=== PATIENT | female | born 1985 | race Caucasian/White ===

== ENCOUNTER → 2016-07-30 | Outpatient (CLI) | payer BC | END | disposition home or self-care (01) | LOC: LABWHC1 10:20 | PROVIDERS: ATTEND Obstetrics & Gynecology | DX: Z34.02 Encounter for supervision of normal first pregnancy, second trimester (principal); Z3A.00 Weeks of gestation of pregnancy not specified | CPT/HCPCS: 36415; 82105; 82677; 84702; 86336 ==

== ENCOUNTER → 2016-10-08 | Outpatient (CLI) | payer BC ==
[2016-10-08 09:03] LABS: CH 34.2; CHCM 33.2; HCT 32.7 % (34.0-46.0); HDW 2.68; HGB 10.9 gm/dL (11.4-16.0); MCH 34.7 pg (25.0-35.0); MCHC 33.4 g/dL (31.0-37.0); MCV 103.7 fL (80.0-100.0); Macrocytosis Slight; Mean Platelet Volume 7.7; RBC 3.15 m/uL (3.80-5.40); RDW 13.1 % (11.5-15.5); WBC 7.2 k/uL (3.8-10.6)
== END | disposition home or self-care (01) ==
LOC: LABWHC1 07:41
PROVIDERS: ATTEND Obstetrics & Gynecology
DX: Z34.02 Encounter for supervision of normal first pregnancy, second trimester (principal); Z3A.00 Weeks of gestation of pregnancy not specified
CPT/HCPCS: 36415; 82950; 85027

== ENCOUNTER → 2016-11-11 | Outpatient (CLI) | payer BC ==
--- NOTE | 2016-11-11 10:32 | US ---
EXAMINATION TYPE: US OB anatomy transabd DATE OF EXAM: 11/11/2016 8:55 AM COMPARISON: NONE HISTORY: Larger for Dates Third Trimester O36.63X0 Anatomy per order TECHNIQUE: Transabdominal (TA) EXAM MEASUREMENTS: GESTATIONAL AGE / DATING Physician Established: (32 weeks/5 days) EDC: 01/01/2017 Dates by Current Scan for: (33 weeks/3 days) EDC: 12/27/2016 SURVEY IUP: Single PLACENTA: Fundal PREVIA: No previa GAGE: 10.8 cm Normal CERVICAL LENGTH (transabdominal: norm > 3.0cm): 4.0 cm BIOMETRY PRESENTATION: Vertex BPD: 8.6 cm 34 weeks / 5 days HC: 30.2 cm 33 weeks / 4 days AC: 28.5 cm 32 weeks / 4 days FL: 6.3 cm 32 weeks / 5 days ESTIMATED WEIGHT IN GRAMS: 2060 grams ESTIMATED WEIGHT IN LBS/OZS: 4 lbs. 9 oz. WEIGHT PERCENTAGE BASED ON ESTABLISHED DATE: 44 % HC/AC: 1.06 Normal FL/AC: 22% Normal HEART RATE: 147 bpm RHYTHM: Normal ANATOMY SEEN (within normal limits): * Lateral Vent (< 1 cm) 0.4 cm Choroid Plexus (bilateral) Midline Falx Cavus Septi Pellucidi Four Chamber Heart Stomach Situs Nose / Lips Diaphragm Kidneys (bilateral) Bladder Three Vessel Cord ANATOMY SEEN (does not appear within normal limits): ANATOMY NOT SEEN: * Cisterna Magna (< 1.1 cm) cm * Nuchal Fold (< 0.6 cm) cm * Cerebellum (varies with age) cm Longitudinal Spine Transverse Spine Arms (bilateral) Legs (bilateral) Cord Insert Outflow tracts: LVOT/RVOT Suboptimal visualization of anatomy due to late gestational age. Live single IUP measuring 33 weeks 3 days. IMPRESSION: 1. Single intrauterine gestation estimated at 33 weeks 3 days gestation based on the current ultrasou nd measurements. This would have a calculated EDC of 12/27/2016. Correlate this with her physician goldie leished EDC of 01/01/2017. 2. Cardiac activity measures 147 bpm. 3. anatomy is limited due to age and position this examination
== END | disposition home or self-care (01) ==
LOC: RADUSWWP 08:17
PROVIDERS: ATTEND Obstetrics & Gynecology
DX: O36.63X0 Maternal care for excessive fetal growth, third trimester, not applicable or unspecified (principal); Z3A.33 33 weeks gestation of pregnancy
CPT/HCPCS: 76811

== ENCOUNTER 2017-01-04 12:03 | Inpatient (IN) | payer BC ==
[2017-01-04] MEDS ORDERED: CARBOPROST TROMETHAMINE 250 MCG/ML 1 ML AMP IM PRN (12:16)
[2017-01-04] MEDS ORDERED: LIDOCAINE 1% (PF) 10 MG/ML (30 ML SDV) SQ PRN (12:16)
[2017-01-04] MEDS ORDERED: METHYLERGONOVINE 0.2 MG/ML 1 ML AMP IM PRN (12:16)
[2017-01-04] MEDS ORDERED: TERBUTALINE 1 MG/ML VIAL SQ PRN (12:16)
[2017-01-04] MEDS ORDERED: OXYTOCIN 10 UNIT/ML 1 ML VIAL IM PRN (12:16)
[2017-01-04 12:33] LABS: Basophils % (A) 0 %; CH 35.1; CHCM 35.8; Eosinophils # (A) 0.1 k/uL (0-0.7); Eosinophils % (A) 1 %; HCT 34.7 % (34.0-46.0); HDW 2.67; HGB 12.3 gm/dL (11.4-16.0); Luc # (Auto) 0.24; Luc % (Auto) 4; Lymphocytes # (A) 1.5 k/uL (1.0-4.8); Lymphocytes % (A) 25 %; MCH 35.1 pg (25.0-35.0); MCHC 35.6 g/dL (31.0-37.0); MCV 98.5 fL (80.0-100.0); Mean Platelet Volume 9.1; Monocytes # (A) 0.3 k/uL (0-1.0); Monocytes % (A) 5 %; Neutrophils # (A) 4.1 k/uL (1.3-7.7); Neutrophils % (A) 65 %; RBC 3.52 m/uL (3.80-5.40); RDW 13.7 % (11.5-15.5); WBC 6.3 k/uL (3.8-10.6); WBC (Perox) 6.42
[2017-01-04 12:46] VITALS: BMI 26.6
[2017-01-04] MEDS: LACTATED RINGERS 1,000 ML IV SCH ×4 (12:48→23:47)
[2017-01-04] MEDS: OXYTOCIN 20 UNITS/1000 ML NS 1,000 ML IV SCH (12:49)
[2017-01-04] MEDS ORDERED: BUTORPHANOL 1 MG/ML 1 ML VIAL IV PRN (16:33)
[2017-01-04] MEDS ORDERED: fentaNYL (PF) 50 MCG/ML 5 ML AMP ONE (20:14)
[2017-01-04] MEDS ORDERED: BUPIVACAINE (PF) 0.25% 30 ML VIAL ONE (20:14)
[2017-01-04] MEDS ORDERED: SODIUM CHLORIDE 0.9% 100 ML BAG ONE (20:14)
[2017-01-04] MEDS ORDERED: BUPIVACAINE (PF) 0.25% 25 ML, fentaNYL (PF) 200 MCG in SODIUM CHLORIDE 0.9% 71 ML EPIDURAL ONE (20:33)
[2017-01-05] MEDS ORDERED: ceFAZolin 2 GM in SODIUM CHLORIDE 0.9% 100 ML IVPB ONE ×2 (05:08→22:00)
[2017-01-05] MEDS ORDERED: CITRIC ACID-SODIUM CITRATE 15 ML CUP PO ONE (05:08)
[2017-01-05] MEDS: LACTATED RINGERS 1,000 ML IV SCH ×4 (05:17→22:46)
[2017-01-05] MEDS ORDERED: ePHEDrine 50 MG/ML 1 ML AMP ONE (05:28)
[2017-01-05] MEDS ORDERED: ONDANSETRON 4 MG/2 ML VIAL ONE (05:28)
[2017-01-05] MEDS ORDERED: MORPHINE SULFATE (PF) 0.3 MG/0.3 ML SYR ONE (05:28)
[2017-01-05] MEDS ORDERED: KETOROLAC 30 MG/ML 1 ML VIAL ONE (05:28)
[2017-01-05] MEDS ORDERED: OXYTOCIN 10 UNIT/ML 1 ML VIAL ONE (05:28)
[2017-01-05] MEDS ORDERED: NALBUPHINE 10 MG/ML AMPUL ONE (05:28)
[2017-01-05] MEDS ORDERED: PHENYLEPHRINE-0.9% NACL SYG 1 MG/10 ML SYRINGE ONE (05:28)
[2017-01-05] MEDS ORDERED: NALOXONE 0.4 MG/ML 1 ML VIAL IV PRN ×2 (05:58→06:27)
[2017-01-05] MEDS ORDERED: MORPHINE SULFATE 4 MG/ML SYRINGE IVP PRN (05:58)
[2017-01-05] MEDS ORDERED: ONDANSETRON 4 MG/2 ML VIAL IVP PRN (05:58)
[2017-01-05] MEDS ORDERED: diphenhydrAMINE 50 MG/ML 1 ML VIAL IVP PRN ×3 (05:58→06:27)
[2017-01-05] MEDS ORDERED: ZOLPIDEM 5 MG TAB PO PRN (06:27)
[2017-01-05] MEDS ORDERED: diphenhydrAMINE 25 MG CAP PO PRN (06:27)
[2017-01-05] MEDS ORDERED: METOCLOPRAMIDE 5 MG/ML 2 ML VIAL IVP PRN (06:27)
[2017-01-05] MEDS ORDERED: ACETAMINOPHEN TAB 325 MG TAB PO PRN (06:27)
[2017-01-05] MEDS ORDERED: Acetaminophen-Codeine 300-30mg TAB PO PRN ×2 (06:27)
[2017-01-05] MEDS ORDERED: SIMETHICONE 80 MG CHEWABLE PO PRN (06:27)
[2017-01-05] MEDS ORDERED: diphenhydrAMINE 50 MG CAP PO PRN (06:27)
--- NOTE | 2017-01-05 06:31 | P.HPOB ---
History of Present Illness H&P Date: 01/04/17 Chief Complaint: Intrauterine at 40 weeks with oligohydramnios Vani is a 29-year-old at 40 weeks gestation arrives to my office today for a an ultrasound for GAGE and estimated weight. Ultrasound revealed her GAGE to be 3 area due to oligohydramnios she was sent to labor and delivery for induction of labor for same. Her course otherwise has been unremarkable. She has had no significant problems or concerns during this and she is feeling well at this time. Risks of induction were discussed patient in detail and all questions were answered for she and her prior to beginning the induction. Patient's pertinent labs do include O + blood type Rh antibody was negative, rubella, hepatitis B surface antigen, RPR were all negative. Group B strep was also negative. On physical exam vital signs are stable and afebrile. Heart regular, lungs clear, extremities without pain. Abdomen soft gravid uterus is noted. heart tones 130s to 150s and have been reactive. Assessment intrauterine at term with oligohydramnios. Plan induction of labor. Pitocin augmentation of labor. Plans epidural for analgesia. Past Medical History Past Medical History: No Reported History History of Any Multi-Drug Resistant Organisms: None Reported Additional Past Surgical History / Comment(s): [place] teeth removal 2003 Past Psychological History: No Psychological Hx Reported Smoking Status: Never smoker Past Alcohol Use History: None Reported Past Drug Use History: None Reported - Past Family History Father Family Medical History: Hypertension Medications and Allergies Home Medications Medication Instructions Recorded Confirmed Type Fluticasone/Salmeterol [Advair 1 puff INHALATION BID 01/04/17 01/04/17 History 250-50 Diskus] Pnv,Calcium 72/Iron/Folic Acid 1 tab PO DAILY 01/04/17 01/04/17 History [ Plus Tablet] Allergies Allergy/AdvReac Type Severity Reaction Status Date / Time No Known Allergies Allergy Verified 01/04/17 12:14 Exam Osteopathic Statement: *. No significant issues noted on an osteopathic structural exam other than those noted in the History and Physical/Consult. - Vital Signs Vital signs: Vital Signs Temp Pulse Resp BP 01/04/17 12:24 96.9 F L 74 16 137/83 Intake and Output 01/04/17 01/04/17 01/05/17 14:59 22:59 06:59 Intake Total 1200 2000 Output Total 200 Balance 1200 1800 Intake: IV 300 Lactated Ringers 1,000 ml 300 @ 125 mls/hr IV .Q8H BIANCA Rx#:[id number] Intake, IV Titration 900 2000 Amount Lactated Ringers 1,000 ml 900 2000 @ 125 mls/hr IV .Q8H BIANCA Rx#:[id number] Output: Urine 200 Other: # Voids 2 Weight 70.307 kg Patient Weight 01/05/17 06:59 Weight 70.307 kg Results Result Diagrams: 01/04/17 12:20 Abnormal Lab Results - Last 24 Hours (Table) 01/04/17 Range/Units 12:20 RBC 3.52 L (3.80-5.40) m/uL MCH 35.1 H (25.0-35.0) pg
--- NOTE | 2017-01-05 06:36 | P.OP ---
Date of Procedure: 01/05/17 Preoperative Diagnosis: Intrauterine at term: Oligohydramnios: Failure to descend Postoperative Diagnosis: Same with cephalopelvic disproportion Procedure(s) Performed: Primary low transverse section Implants: Anesthesia: spinal Surgeon: Patric Castaneda First Helper #1: Vandana Moran Estimated Blood Loss (ml): 450 IV fluids (ml): 1,300 Urine output (ml): 50 Pathology: other (Placenta) Condition: stable Disposition: floor Indications for Procedure: Operative Findings: Male scores of 8 and 9 at one and 5 minutes just Jorge weight was 7 lbs. 15 oz. Should be noted that the patient dilated to complete and did push for over an hour and half with what amounts to no descent. Ultimately the baby was delivered from right occiput transverse position precluding the baby from descending any further in her pelvis. Description of Procedure: Patient was taken to the operating suite where a spinal anesthetic was found be adequate. She was prepped and draped in the normal sterile fashion placed in dorsal supine position with leftward tilt. Initially a Pfannenstiel skin incision was made and this incision was then carried through to underlying layer of the fascia was second knife. Fascia was then nicked in the midline and this opening was extended laterally with Jose scissors. Superior and inferior aspect of this incision were then grasped tented up and bluntly and sharply dissected off the rectus muscles. Rectus muscles were then divided midline and blunt dissection the peritoneum was made. This opening was then extended superiorly and inferiorly with good visualization of both bowel and bladder. Bladder blade was then placed and the vesicouterine peritoneum was identified grasped with pickups and entered with Metzenbaum scissors and extended across face of the uterus with Metzenbaum scissors. Knife was then used to incise uterus this opening was then fully completed with hemostat and the incision was bluntly extended. Head was then brought out of the pelvis. Into the incision with fundal and uterine pressure they B's head was delivered mouth nares were bulb suctioned once this was accomplished shoulders were delivered with gentle downward upper traction followed by the remainder the baby. Mouth nares were then thoroughly bulb suction by nursery personnel and the umbilical cord was clamped cut usual fashion. Placenta was then delivered intact and Pitocin was added to the IV. Uterus was then exteriorized cleared of clots and debris and closed in 2 layers with 0 Vicryl suture. There was still some bleeding along left corner which required [id number] sutures to obtain excellent hemostasis once excellent hemostasis was obtained blood and debris was suctioned from the posterior cul-de-sac. We did monitor the left area for 2-3 minutes initially to verify hemostasis once we felt there was complete hemostasis uterus was reinserted the abdomen and inspection of that area was again performed seeing no bleeding peritoneal layer was then closed with 0 Vicryl suture. Fascial layer was then closed with 0 Vicryl suture one layer of 3-0 Vicryl was placed in the deep subcuticular tissues to reapproximate skin and close space. Skin was then closed with 3-0 Vicryl in a Jose needle. Sponge, lap, needle counts were correct 2. Patient was then taken to the recovery room in stable and satisfactory condition.
[2017-01-05] MEDS: SENNOSIDES-DOCUSATE SODIUM 1 EACH TAB PO SCH ×2 (11:46→20:22)
[2017-01-05] MEDS: ceFAZolin 2 GM in SODIUM CHLORIDE 0.9% 100 ML IVPB SCH ×2 (11:48→14:13)
[2017-01-05] MEDS: KETOROLAC 30 MG/ML 1 ML VIAL IVP PRN ×2 (12:46→20:22)
[2017-01-05] MEDS: OXYTOCIN 20 UNITS/1000 ML NS 1,000 ML IV SCH (13:29)
[2017-01-06 06:11] LABS: Basophils % (A) 0 %; CH 35.1; CHCM 34.4; Eosinophils # (A) 0.1 k/uL (0-0.7); Eosinophils % (A) 1 %; HCT 27.9 % (34.0-46.0); HDW 2.63; Luc # (Auto) 0.33; Luc % (Auto) 3; Lymphocytes # (A) 1.9 k/uL (1.0-4.8); Lymphocytes % (A) 16 %; MCH 34.4 pg (25.0-35.0); MCHC 33.5 g/dL (31.0-37.0); MCV 102.7 fL (80.0-100.0); Macrocytosis Slight; Mean Platelet Volume 8.9; Monocytes # (A) 0.4 k/uL (0-1.0); Monocytes % (A) 4 %; Neutrophils # (A) 9.1 k/uL (1.3-7.7); Neutrophils % (A) 77 %; RBC 2.71 m/uL (3.80-5.40); RDW 14.1 % (11.5-15.5); WBC 11.9 k/uL (3.8-10.6); WBC (Perox) 12.54
[2017-01-06 06:17] LABS: HGB 9.3 gm/dL (11.4-16.0)
[2017-01-06] MEDS: LACTATED RINGERS 1,000 ML IV SCH ×4 (07:05→21:42)
[2017-01-06] MEDS: IBUPROFEN 600 MG TAB PO PRN ×2 (08:22→19:55)
[2017-01-06] MEDS: SENNOSIDES-DOCUSATE SODIUM 1 EACH TAB PO SCH ×2 (08:23→19:56)
--- NOTE | 2017-01-06 08:51 | P.PNOBGPC ---
Subjective - Subjective Principal diagnosis: Postop day 1 Interval history: Overall Vani is doing very well. She is able to ambulate and she is voiding now without difficulty. She did have small clot in her urine earlier this morning but she has no pain or other signs or symptoms of issues with her bladder at this time. Her urine did clear later in the evening last night there is no evidence for laceration or other problems. It appears that between pushing and what was likely somewhat traumatic catheter placement that is all that we have at this time. We'll continue to observe very closely however. Should any more V noted or any other issues with her urination we'll consult urology immediately. Her vital signs are otherwise stable and she is afebrile. Heart regular, lungs clear, extremities without pain. Abdomen is soft her incision is clean dry and intact. Assessment postop day 1. Plan continue current care. Patient reports: Reports appetite normal, Reports voiding normally, Reports pain well controlled, Reports ambulating normally : doing well Objective - Vital Signs Latest vital signs: Vital Signs Temp Pulse Resp BP Pulse Ox 01/06/17 08:34 98.6 F 94 18 113/74 97 01/06/17 04:00 98.1 F 82 16 105/66 01/06/17 00:00 98.4 F 88 18 105/66 01/05/17 20:00 98.1 F 90 18 105/60 01/05/17 16:00 97.9 F 85 16 107/66 96 01/05/17 12:00 98.5 F 97 18 125/71 95 01/05/17 09:29 98.5 F 80 16 125/79 01/05/17 08:59 98.2 F 76 16 128/81 01/05/17 08:58 16 Intake and Output 01/05/17 01/06/17 01/06/17 22:59 06:59 14:59 Intake Total 450 Output Total 100 650 450 Balance -100 -200 -450 Intake: Oral 450 Output: Urine 100 650 450 Uretheral ([place]) 650 Other: Voiding Method Indwelling Catheter Indwelling Catheter # Voids 700 - Labs Labs: Abnormal Lab Results - Last 24 Hours (Table) 01/06/17 Range/Units 05:50 WBC 11.9 H (3.8-10.6) k/uL RBC 2.71 L (3.80-5.40) m/uL Hgb 9.3 L D (11.4-16.0) gm/dL Hct 27.9 L (34.0-46.0) % MCV 102.7 H (80.0-100.0) fL Plt Count 125 L (150-450) k/uL Neutrophils # 9.1 H (1.3-7.7) k/uL
[2017-01-06] MEDS: OXYTOCIN 20 UNITS/1000 ML NS 1,000 ML IV SCH (20:26)
[2017-01-07] MEDS: IBUPROFEN 600 MG TAB PO PRN ×2 (05:04→11:02)
[2017-01-07 08:32] VITALS: BP 128/92; PULSE 60; RESP 16; TEMP 97
--- NOTE | 2017-01-07 09:03 | P.DS ---
Providers Date of admission: 01/04/17 12:03 Expected date of discharge: 01/07/17 Attending physician: Patric Castaneda Primary care physician: Stated None Hospital Course: Vani is doing very well postop day 2. She is involuting, voiding, and she is tolerating her diet. She voices no complaints. Prescription for pain medication including Tylenol 3 and Motrin has been provided as well as a breast pump prescription. Her vital signs are stable and afebrile. Heart regular, lungs clear, extremities without pain. Abdomen soft uterus is firm below the umbilicus at this point and her incision is clean dry and intact. Assessment postop day 2. Plan discharged home follow up with me in 1 week. All the questions were answered for her prior to her discharge she is stable for discharge this time discharge instructions were thoroughly reviewed. Patient Condition at Discharge: Good Plan - Discharge Summary New Discharge Prescriptions: New Acetaminophen-Codeine 300-30mg [Tylenol #3] 1 tab PO Q4H PRN #30 tablet PRN Reason: Pain Ibuprofen [Motrin] 600 mg PO Q6HR PRN #30 tab PRN Reason: Pain No Action Pnv,Calcium 72/Iron/Folic Acid [ Plus Tablet] 1 tab PO DAILY Fluticasone/Salmeterol [Advair 250-50 Diskus] 1 puff INHALATION BID Discharge Medication List Fluticasone/Salmeterol [Advair 250-50 Diskus] 1 puff INHALATION BID 01/04/17 [ History] Pnv,Calcium 72/Iron/Folic Acid [ Plus Tablet] 1 tab PO DAILY 01/04/17 [ History] Acetaminophen-Codeine 300-30mg [Tylenol #3] 1 tab PO Q4H PRN #30 tablet [Rx] Ibuprofen [Motrin] 600 mg PO Q6HR PRN #30 tab 01/07/17 [Rx] Follow up Appointment(s)/Referral(s): Patric Castaneda DO [Doctor of Osteopathic Medicine] - 1 Week Activity/Diet/Wound Care/Special Instructions: No heavy lifting limited stairs and driving and pelvic rest. If any high temperatures, heavy bleeding, or severe pain call my office Discharge Disposition: HOME SELF-CARE
== END 2017-01-07 15:14 | disposition home or self-care (01) | DRG 766 ==
LOC: 4FBP 12:03
PROVIDERS: ADMIT Obstetrics & Gynecology; ATTEND Obstetrics & Gynecology
PROC: 3E033VJ Introduction of Other Hormone into Peripheral Vein, Percutaneous Approach (ICD-10-PCS; 2017-01-04)
PROC: 00HU33Z Insertion of Infusion Device into Spinal Canal, Percutaneous Approach (ICD-10-PCS; 2017-01-04)
PROC: 3E0R3CZ (ICD-10-PCS; 2017-01-04)
PROC: 10D00Z1 Extraction of Products of Conception, Low, Open Approach (ICD-10-PCS; principal; 2017-01-05 05:11)
DX: O41.03X0 Oligohydramnios, third trimester, not applicable or unspecified (principal); O32.4XX0 Maternal care for high head at term, not applicable or unspecified; O33.9 Maternal care for disproportion, unspecified; Z3A.40 40 weeks gestation of pregnancy; Z37.0 Single live birth; Z79.51 Long term (current) use of inhaled steroids; Z79.899 Other long term (current) drug therapy
CPT/HCPCS: 85025; 88307

== ENCOUNTER → 2018-04-07 | Outpatient (CLI) | payer BC | LOC: LABWHC1 15:48 | PROVIDERS: ATTEND Obstetrics & Gynecology | DX: Z34.80 Encounter for supervision of other normal pregnancy, unspecified trimester (principal); Z3A.00 Weeks of gestation of pregnancy not specified | CPT/HCPCS: 36415; 84702 ==

== ENCOUNTER → 2018-04-10 | Outpatient (CLI) | payer BC | END | disposition home or self-care (01) | LOC: LABWHC1 12:29 | PROVIDERS: ATTEND Obstetrics & Gynecology | DX: Z34.80 Encounter for supervision of other normal pregnancy, unspecified trimester (principal); Z3A.00 Weeks of gestation of pregnancy not specified | CPT/HCPCS: 36415; 84702 ==

== ENCOUNTER → 2018-04-12 | Outpatient (CLI) | payer BC | END | disposition home or self-care (01) | LOC: LABWHC1 12:23 | PROVIDERS: ATTEND Obstetrics & Gynecology | DX: Z34.80 Encounter for supervision of other normal pregnancy, unspecified trimester (principal) | CPT/HCPCS: 36415; 84702 ==

== ENCOUNTER → 2018-04-14 | Outpatient (CLI) | payer BC | LOC: LABWHC1 09:10 | PROVIDERS: ATTEND Obstetrics & Gynecology | DX: Z34.80 Encounter for supervision of other normal pregnancy, unspecified trimester (principal); Z3A.00 Weeks of gestation of pregnancy not specified | CPT/HCPCS: 36415; 84702 ==

== ENCOUNTER 2018-04-21 19:02 | Emergency (ER) | payer BC ==
[2018-04-21 19:14] VITALS: TEMP 98.3
--- NOTE | 2018-04-21 20:00 | ED ---
Female Urogenital HPI <Daxa Santoro - Last Filed: 04/21/18 21:46> - General Source: patient, RN notes reviewed Mode of arrival: ambulatory Limitations: no limitations - History of Present Illness Last Menstrual Period: 02/28/18 <Cary Ny - Last Filed: 04/21/18 21:57> - General Chief complaint: Vaginal Bleeding Stated complaint: POSS ECTOPIC , SENT BY Time Seen by Provider: 04/21/18 19:47 - History of Present Illness Initial comments: This is a 32-year-old female who presents to the emergency department with chief complaint of ectopic . Patient states that 3 weeks ago, she was approximately 5 weeks along in her . She states that she developed vaginal spotting. She states that Dr. Meng has been trending her serum hCG. She states that her serum hCG has been trending downwards but today on recheck it had increased. There was concern for ectopic so an ultrasound was obtained. This did confirm an ectopic . Dr. Meng was in contact with the nursing staff here in the emergency department. He did give verbal orders for management of patient. He ordered a hepatic function panel as well as a CBC. Stated that if her liver function was normal to give patient 80 mg of IM methotrexate 1. He would like to be contacted if liver function panel is not normal. Patient has no complaints. She denies any fevers or chills, abdominal pain, nausea or vomiting. (Cary Ny) - Related Data Home Medications Medication Instructions Recorded Confirmed Fluticasone/Salmeterol [Advair 1 puff INHALATION RT-BID 01/04/17 04/21/18 250-50 Diskus] Pnv,Calcium 72/Iron/Folic Acid 1 tab PO DAILY 01/04/17 04/21/18 [ Plus Tablet] Albuterol Inhaler [Ventolin Hfa 1 - 2 puff INHALATION RT-Q6H PRN 04/21/18 Inhaler] Albuterol Nebulized [Ventolin 2.5 mg INHALATION RT-QID PRN 04/21/18 04/21/18 Nebulized] Allergies Allergy/AdvReac Type Severity Reaction Status Date / Time No Known Allergies Allergy Verified 04/21/18 20:04 Review of Systems ROS Other: All systems not noted in ROS Statement are negative. <Daxa Santoro P - Last Filed: 04/21/18 21:46> ROS Other: All systems not noted in ROS Statement are negative. <YanelyCary hooks - Last Filed: 04/21/18 21:57> ROS Statement: Those systems with pertinent positive or pertinent negative responses have been documented in the HPI. Past Medical History Past Medical History: Asthma History of Any Multi-Drug Resistant Organisms: None Reported Past Surgical History: Section Additional Past Surgical History / Comment(s): [place] teeth removal 2003 Past Psychological History: No Psychological Hx Reported Smoking Status: Never smoker Past Alcohol Use History: None Reported Past Drug Use History: None Reported - Past Family History Father Family Medical History: Hypertension <Cary Ny Patsy - Last Filed: 04/21/18 21:57> General Exam <Daxa Santoro P - Last Filed: 04/21/18 21:46> Limitations: no limitations <Cary Ny Patsy - Last Filed: 04/21/18 21:57> - General Exam Comments Initial Comments: General: Awake and alert, well-developed; in no apparent distress. HEENT: Head atraumatic, normocephalic. Pupils are equal, round and reactive to light. Extraocular movements intact. Oropharynx moist without erythema or exudate. Neck: Supple. Normal ROM. Cardiovascular: Regular rate and rhythm. No murmurs, rubs or gallops. Chest symmetrical. Respiratory: Lungs clear to auscultation bilaterally. No wheezes, rales or rhonchi. Normal respiratory effort with no use of accessory muscles. Abdomen: Soft, non-tender, non-distended. No rigidity, rebound or guarding. Normal bowel sounds in all 4 quadrants. Musculoskeletal: Normal ROM, no tenderness bilateral upper and lower extremities. Ambulating normally. Skin: [place], warm and dry without rashes or lesions. Neurological: Alert and oriented x3. CN II-XII grossly intact. Speech is fluent and answers are appropriate. No focal neuro deficits. Psychiatric: Normal mood and affect. No overt signs of depression or anxiety noted. (Cary Ny) Vital Signs 04/21/18 19:10 Temperature 98.3 F Pulse Rate 89 Respiratory 16 Rate Blood Pressure 146/104 O2 Sat by Pulse 100 Oximetry Medical Decision Making - Lab Data Result diagrams: 04/21/18 20:34 04/21/18 20:34 <Daxa Santoro - Last Filed: 04/21/18 21:46> - Lab Data Result diagrams: 04/21/18 20:34 04/21/18 20:34 <Cary Ny M - Last Filed: 04/21/18 21:57> - Medical Decision Making I discussed patient care with OB religious education coordinator Dr. Hook, he has spoken with the patient regarding her diagnosis, he has discussed the risks benefits of methotrexate with her. In addition he has discussed return parameters and indication for reevaluation the emergency department. Patient is able to contact Dr. Hook with any questions over the weekend, she is scheduled for follow-up on Tuesday. He advised her to come to the ER for methotrexate administration. He recommends 50 mg methotrexate per metered square of body surface area. Based on the patient's height and weight this would be 80 mg IM. Methotrexate was ordered. (Daxa Santoro) - Lab Data Lab Results 04/21/18 04/21/18 Range/Units 20:34 20:34 WBC 5.8 (3.8-10.6) k/uL RBC 4.24 (3.80-5.40) m/uL Hgb 14.2 (11.4-16.0) gm/dL Hct 41.4 (34.0-46.0) % MCV 97.6 (80.0-100.0) fL MCH 33.5 (25.0-35.0) pg MCHC 34.3 (31.0-37.0) g/dL RDW 11.7 (11.5-15.5) % Plt Count 162 (150-450) k/uL Neutrophils % 51 % Lymphocytes % 38 % Monocytes % 5 % Eosinophils % 3 % Basophils % 1 % Neutrophils # 2.9 (1.3-7.7) k/uL Lymphocytes # 2.2 (1.0-4.8) k/uL Monocytes # 0.3 (0-1.0) k/uL Eosinophils # 0.2 (0-0.7) k/uL Basophils # 0.1 (0-0.2) k/uL Sodium 141 (137-145) mmol/L Potassium 3.7 (3.5-5.1) mmol/L Chloride 108 H (98-107) mmol/L Carbon Dioxide 22 (22-30) mmol/L Anion Gap 11 mmol/L BUN 11 (7-17) mg/dL Creatinine 0.67 (0.52-1.04) mg/dL Est GFR (CKD-EPI)AfAm >90 (>60 ml/min/1.73 sqM) Est GFR (CKD-EPI)NonAf >90 (>60 ml/min/1.73 sqM) Glucose 85 (74-99) mg/dL Calcium 9.9 (8.4-10.2) mg/dL Total Bilirubin 0.9 (0.2-1.3) mg/dL AST 20 (14-36) U/L ALT 19 (9-52) U/L Alkaline Phosphatase 40 (38-126) U/L Total Protein 7.3 (6.3-8.2) g/dL Albumin 4.7 (3.5-5.0) g/dL Disposition <Daxa Santoor P - Last Filed: 04/21/18 21:46> Is patient prescribed a controlled substance at d/c from ED?: No Time of Disposition: 21:56 <Cary Ny - Last Filed: 04/21/18 21:57> Clinical Impression: Ectopic without intrauterine Disposition: HOME SELF-CARE Condition: Good Instructions: Methotrexate (By injection), Ectopic (DC) Additional Instructions: Please follow-up with Dr. Meng within 1-2 days. Please follow up with primary care provider within 1-2 days. Return to emergency department if symptoms should worsen or any concerns arise. Referrals: Emy Rick MD [Primary Care Provider] - 1-2 days
[2018-04-21 21:10] LABS: Basophils # (A) 0.1 k/uL (0-0.2); Basophils % (A) 1 %; Eosinophils # (A) 0.2 k/uL (0-0.7); Eosinophils % (A) 3 %; HCT 41.4 % (34.0-46.0); HGB 14.2 gm/dL (11.4-16.0); Lymphocytes # (A) 2.2 k/uL (1.0-4.8); Lymphocytes % (A) 38 %; MCH 33.5 pg (25.0-35.0); MCHC 34.3 g/dL (31.0-37.0); MCV 97.6 fL (80.0-100.0); Mean Platelet Volume 8.2; Monocytes # (A) 0.3 k/uL (0-1.0); Monocytes % (A) 5 %; Neutrophils # (A) 2.9 k/uL (1.3-7.7); Neutrophils % (A) 51 %; Platelet Count 162 k/uL (150-450); RBC 4.24 m/uL (3.80-5.40); RDW 11.7 % (11.5-15.5); WBC 5.8 k/uL (3.8-10.6)
[2018-04-21 21:22] LABS: ALT 19 U/L (9-52); AST 20 U/L (14-36); Albumin 4.7 g/dL (3.5-5.0); Alkaline Phosphatase 40 U/L (38-126); Anion Gap 11 mmol/L; Blood Urea Nitrogen 11 mg/dL (7-17); Calcium 9.9 mg/dL (8.4-10.2); Carbon Dioxide 22 mmol/L (22-30); Chloride 108 mmol/L (98-107); Glucose 85 mg/dL (74-99); Potassium 3.7 mmol/L (3.5-5.1); Sodium 141 mmol/L (137-145); Total Bilirubin 0.9 mg/dL (0.2-1.3); Total Protein 7.3 g/dL (6.3-8.2)
[2018-04-21] MEDS ORDERED: METHOTREXATE SODIUM (PF) 25 MG/ML 2 ML VIAL IM STA (21:45)
[2018-04-21 22:25] VITALS: BP 130/88; PULSE 78; RESP 18
== END 2018-04-21 22:41 | disposition home or self-care (01) ==
LOC: EC 19:02
DX: O00.90 Unspecified ectopic pregnancy without intrauterine pregnancy (principal); O99.511 Diseases of the respiratory system complicating pregnancy, first trimester; J45.909 Unspecified asthma, uncomplicated; Z3A.01 Less than 8 weeks gestation of pregnancy; Z79.899 Other long term (current) drug therapy
CPT/HCPCS: 36415; 80053; 85025; 99284; 96372; J9260

== ENCOUNTER → 2018-04-21 | Outpatient (CLI) | payer BC ==
--- NOTE | 2018-04-21 17:43 | US ---
EXAMINATION TYPE: Transabdominal DATE OF EXAM: 10/25/17 COMPARISON: NONE CLINICAL HISTORY: Abnormal Bheta hcg rise R68.89. Beta HCG levels have been inconsistent for the past month, bleeding for 3 weeks EXAM PERFORMED: OBTA/OBTV EXAM MEASUREMENTS: GESTATIONAL AGE / DATING Physician Established: Not yet established Dates by LMP: (7 weeks/3 days) EDC: 12/05/2018 Dates by First Scan: No previous this is first scan Dates by Current Scan for: No IUP seen at this time MATERNAL ANATOMY Uterus: 7.5 x 5.2 x 4.5cm Right Ovary: 2.8 x 2.1 x 1.8cm Left Ovary: 2.7 x 1.6 x 1.9cm Post CDS / Adnexa: 2.6 x 1.7 x 1.6cm complex lesion noted medial to right ovary within adnexa, vascul arity noted within Presence of free fluid: free fluid with internal debris seen within CDS Presence of corpus luteal cyst: 1.5cm on the left Presence of subchorionic bleed: no Endometrium = 0.6cm GESTATION / SURVEY CRL: not seen MSD: not seen IUP: No IUP seen at this time Date of LMP: 02/28/2018 Beta HcG (if available): not avialable IMPRESSION: The uterus is empty. No adnexal mass. There is mild free fluid in the cul-de-sac.
== END | disposition home or self-care (01) ==
LOC: RADUSMAIN 16:54
PROVIDERS: ATTEND Obstetrics & Gynecology
DX: O99.89 Other specified diseases and conditions complicating pregnancy, childbirth and the puerperium (principal); R68.89 Other general symptoms and signs; Z3A.01 Less than 8 weeks gestation of pregnancy
CPT/HCPCS: 76801; 76817

== ENCOUNTER → 2018-04-21 | Outpatient (CLI) | payer BC | END | disposition home or self-care (01) | LOC: LABWHC1 08:30 | PROVIDERS: ATTEND Obstetrics & Gynecology | DX: O03.9 Complete or unspecified spontaneous abortion without complication (principal) | CPT/HCPCS: 36415; 84702 ==

== ENCOUNTER 2018-04-23 09:42 | Observation (INO) | payer BC ==
[2018-04-23] MEDS ORDERED: SODIUM CHLORIDE 0.9% 1,000 ML IV STA (10:15)
--- NOTE | 2018-04-23 10:18 | ED ---
Abdominal Pain HPI - General Chief Complaint: Abdominal Pain Stated Complaint: Abd Pain- Time Seen by Provider: 04/23/18 09:55 Source: patient, RN notes reviewed, old records reviewed Mode of arrival: ambulatory Limitations: no limitations - History of Present Illness Initial Comments: 32-year-old female presents red service had she bled of left-sided abdominal pain and mid abdominal pain. Patient had a confirmed ectopic and received IM methotrexate on Tuesday. She reports she woke up today with increasing pain on the left side. 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 Patient states that she' s had no chest pain shortness of breath. She denies any urinary symptoms or chagnes in stool. - Related Data Home Medications Medication Instructions Recorded Confirmed Fluticasone/Salmeterol [Advair 1 puff INHALATION RT-BID 01/04/17 04/23/18 250-50 Diskus] Albuterol Inhaler [Ventolin Hfa 1 - 2 puff INHALATION RT-Q6H PRN 04/21/18 Inhaler] Albuterol Nebulized [Ventolin 2.5 mg INHALATION RT-QID PRN 04/21/18 04/23/18 Nebulized] Pnv,Calcium 72/Iron/Folic Acid 1 tab PO DAILY 04/23/18 04/23/18 [ Plus Tablet] Allergies Allergy/AdvReac Type Severity Reaction Status Date / Time No Known Allergies Allergy Verified 04/23/18 13:12 Review of Systems ROS Statement: Those systems with pertinent positive or pertinent negative responses have been documented in the HPI. ROS Other: All systems not noted in ROS Statement are negative. Past Medical History Past Medical History: Asthma Additional Past Medical History / Comment(s): ectopic - treated 04/21 with methotrexate History of Any Multi-Drug Resistant Organisms: None Reported Past Surgical History: Section Additional Past Surgical History / Comment(s): [place] teeth removal 2003 Past Psychological History: No Psychological Hx Reported Smoking Status: Never smoker Past Alcohol Use History: Occasional Past Drug Use History: None Reported - Past Family History Father Family Medical History: Hypertension General Exam - General Exam Comments Initial Comments: 32 year old female, no distress. Limitations: no limitations General appearance: alert, in no apparent distress Head exam: Present: atraumatic, normocephalic, normal inspection Eye exam: Present: normal appearance, PERRL, EOMI. Absent: scleral icterus, conjunctival injection, periorbital swelling ENT exam: Present: normal exam, mucous membranes moist Neck exam: Present: normal inspection. Absent: tenderness, meningismus, lymphadenopathy Respiratory exam: Present: normal lung sounds bilaterally. Absent: respiratory distress, wheezes, rales, rhonchi, stridor Cardiovascular Exam: Present: regular rate, normal rhythm, normal heart sounds. Absent: systolic murmur, diastolic murmur, rubs, gallop, clicks GI/Abdominal exam: Present: soft, normal bowel sounds. Absent: distended, tenderness, guarding, rebound, rigid Back exam: Present: normal inspection Neurological exam: Present: alert, oriented X3, CN II-XII intact Psychiatric exam: Present: normal affect, normal mood Skin exam: Present: warm, dry, intact, normal color. Absent: rash Course Vital Signs 04/23/18 04/23/18 09:49 12:28 Temperature 97.9 F 8 F L Pulse Rate 83 76 Respiratory 16 18 Rate Blood Pressure 135/85 125/70 O2 Sat by Pulse 100 98 Oximetry Medical Decision Making - Medical Decision Making Patient is a 32-year-old female present today with history of mild left lower quadrant and suprapubic abdominal pain. Patient is treated for an ectopic with IM methotrexate on Tuesday. Patient at this time is of COPD does not report quest anything for pain management. Her labwork was reviewed and were relatively unremarkable. Today she G level was 227. This is a slight decrease from Tuesday which was 271 at that time. Ultrasound was inconclusive and can still not rule out ectopic . Patient's case discussed with Dr. Hook her TOW DRIVER. He will admit the Patient for observation for repeat hCG testing and further evaluation. - Lab Data Result diagrams: 04/23/18 10:49 04/23/18 10:49 Lab Results 04/23/18 04/23/18 04/23/18 Range/Units 10:49 10:49 10:49 WBC 7.8 (3.8-10.6) k/uL RBC 4.28 (3.80-5.40) m/uL Hgb 14.0 (11.4-16.0) gm/dL Hct 41.5 (34.0-46.0) % MCV 96.9 (80.0-100.0) fL MCH 32.7 (25.0-35.0) pg MCHC 33.8 (31.0-37.0) g/dL RDW 11.8 (11.5-15.5) % Plt Count 174 (150-450) k/uL Neutrophils % 79 % Lymphocytes % 14 % Monocytes % 4 % Eosinophils % 2 % Basophils % 1 % Neutrophils # 6.1 (1.3-7.7) k/uL Lymphocytes # 1.1 (1.0-4.8) k/uL Monocytes # 0.3 (0-1.0) k/uL Eosinophils # 0.1 (0-0.7) k/uL Basophils # 0.1 (0-0.2) k/uL PT 10.5 (9.0-12.0) sec INR 1.1 (<1.2) APTT 24.5 (22.0-30.0) sec Sodium 139 (137-145) mmol/L Potassium 4.1 (3.5-5.1) mmol/L Chloride 107 (98-107) mmol/L Carbon Dioxide 22 (22-30) mmol/L Anion Gap 10 mmol/L BUN 12 (7-17) mg/dL Creatinine 0.71 (0.52-1.04) mg/dL Est GFR (CKD-EPI)AfAm >90 (>60 ml/min/1.73 sqM) Est GFR (CKD-EPI)NonAf >90 (>60 ml/min/1.73 sqM) Glucose 91 (74-99) mg/dL Calcium 9.6 (8.4-10.2) mg/dL Total Bilirubin 1.8 H (0.2-1.3) mg/dL AST 21 (14-36) U/L ALT 24 (9-52) U/L Alkaline Phosphatase 39 (38-126) U/L Total Protein 7.4 (6.3-8.2) g/dL Albumin 4.7 (3.5-5.0) g/dL Amylase 56 (30-110) U/L Lipase 67 (23-300) U/L HCG, Quant 223.5 mIU/mL Urine Color Urine Appearance (Clear) Urine pH (5.0-8.0) Ur Specific Mobile (1.001-1.035) Urine Protein (Negative) Urine Glucose (UA) (Negative) Urine Ketones (Negative) Urine Blood (Negative) Urine Nitrite (Negative) Urine Bilirubin (Negative) Urine Urobilinogen (<2.0) mg/dL Ur Leukocyte Esterase (Negative) Urine RBC (0-5) /hpf Urine WBC (0-5) /hpf Ur Squamous Epith Cells (0-4) /hpf Urine Bacteria (None) /hpf Urine Mucus (None) /hpf Blood Type Blood Type Recheck 04/23/18 04/23/18 Range/Units 10:49 10:53 WBC (3.8-10.6) k/uL RBC (3.80-5.40) m/uL Hgb (11.4-16.0) gm/dL Hct (34.0-46.0) % MCV (80.0-100.0) fL MCH (25.0-35.0) pg MCHC (31.0-37.0) g/dL RDW (11.5-15.5) % Plt Count (150-450) k/uL Neutrophils % % Lymphocytes % % Monocytes % % Eosinophils % % Basophils % % Neutrophils # (1.3-7.7) k/uL Lymphocytes # (1.0-4.8) k/uL Monocytes # (0-1.0) k/uL Eosinophils # (0-0.7) k/uL Basophils # (0-0.2) k/uL PT (9.0-12.0) sec INR (<1.2) APTT (22.0-30.0) sec Sodium (137-145) mmol/L Potassium (3.5-5.1) mmol/L Chloride (98-107) mmol/L Carbon Dioxide (22-30) mmol/L Anion Gap mmol/L BUN (7-17) mg/dL Creatinine (0.52-1.04) mg/dL Est GFR (CKD-EPI)AfAm (>60 ml/min/1.73 sqM) Est GFR (CKD-EPI)NonAf (>60 ml/min/1.73 sqM) Glucose (74-99) mg/dL Calcium (8.4-10.2) mg/dL Total Bilirubin (0.2-1.3) mg/dL AST (14-36) U/L ALT (9-52) U/L Alkaline Phosphatase (38-126) U/L Total Protein (6.3-8.2) g/dL Albumin (3.5-5.0) g/dL Amylase (30-110) U/L Lipase (23-300) U/L HCG, Quant mIU/mL Urine Color Yellow Urine Appearance Clear (Clear) Urine pH 6.5 (5.0-8.0) Ur Specific Mobile 1.019 (1.001-1.035) Urine Protein Trace H (Negative) Urine Glucose (UA) Negative (Negative) Urine Ketones 1+ H (Negative) Urine Blood Moderate H (Negative) Urine Nitrite Negative (Negative) Urine Bilirubin Negative (Negative) Urine Urobilinogen <2.0 (<2.0) mg/dL Ur Leukocyte Esterase Negative (Negative) Urine RBC 2 (0-5) /hpf Urine WBC 1 (0-5) /hpf Ur Squamous Epith Cells 1 (0-4) /hpf Urine Bacteria Rare H (None) /hpf Urine Mucus Few H (None) /hpf Blood Type O Positive Blood Type Recheck No - Radiology Data Radiology results: report reviewed Ultrasound impression is not excluded ectopic . No identified intrauterine gestation. Disposition Clinical Impression: Ectopic Disposition: ADMITTED IP TO THIS [facility] Condition: Stable Time of Disposition: 13:20
[2018-04-23 11:19] LABS: Basophils # (A) 0.1 k/uL (0-0.2); Basophils % (A) 1 %; Eosinophils # (A) 0.1 k/uL (0-0.7); Eosinophils % (A) 2 %; HCT 41.5 % (34.0-46.0); Lymphocytes # (A) 1.1 k/uL (1.0-4.8); Lymphocytes % (A) 14 %; MCH 32.7 pg (25.0-35.0); MCHC 33.8 g/dL (31.0-37.0); MCV 96.9 fL (80.0-100.0); Mean Platelet Volume 7.7; Monocytes # (A) 0.3 k/uL (0-1.0); Monocytes % (A) 4 %; Neutrophils # (A) 6.1 k/uL (1.3-7.7); Neutrophils % (A) 79 %; Platelet Count 174 k/uL (150-450); RBC 4.28 m/uL (3.80-5.40); RDW 11.8 % (11.5-15.5); WBC 7.8 k/uL (3.8-10.6)
[2018-04-23 11:20] LABS: ALT 24 U/L (9-52); AST 21 U/L (14-36); Albumin 4.7 g/dL (3.5-5.0); Alkaline Phosphatase 39 U/L (38-126); Amylase 56 U/L (30-110); Anion Gap 10 mmol/L; Blood Urea Nitrogen 12 mg/dL (7-17); Calcium 9.6 mg/dL (8.4-10.2); Carbon Dioxide 22 mmol/L (22-30); Chloride 107 mmol/L (98-107); Glucose 91 mg/dL (74-99); Lipase 67 U/L (23-300); Potassium 4.1 mmol/L (3.5-5.1); Sodium 139 mmol/L (137-145); Total Bilirubin 1.8 mg/dL (0.2-1.3); Total Protein 7.4 g/dL (6.3-8.2)
[2018-04-23 11:25] LABS: Appearance,Urine Clear (Clear); Bacteria,Urine Rare /hpf; Bilirubin,Urine Negative (Negative); Blood,Urine Moderate (Negative); Color,Urine Yellow; Glucose,Urine (UA) Negative (Negative); Ketones,Urine 1+ (Negative); Leukocyte Esterase,Urine Negative (Negative); Mucus,Urine Few /hpf; Nitrite,Urine Negative (Negative); PH, Urine 6.5 (5.0-8.0); Protein,Urine Trace (Negative); RBC,Urine 2 /hpf (0-5); Specific Gravity,Urine 1.019 (1.001-1.035); Squamous Epithelial Cell,Urine 1 /hpf (0-4); Urobilinogen,Urine <2.0 mg/dL (<2.0); WBC,Urine 1 /hpf (0-5)
[2018-04-23 11:26] LABS: INR 1.1 (<1.2); Partial Thromboplastin Time 24.5 sec (22.0-30.0); Prothrombin Time 10.5 sec (9.0-12.0)
[2018-04-23 11:37] LABS: HCG,Quantitative Serum 223.5 mIU/mL
--- NOTE | 2018-04-23 12:18 | US ---
EXAMINATION TYPE: Transabdominal DATE OF EXAM: 10/25/17 COMPARISON: Previous examination from yesterday. CLINICAL HISTORY: Pain. EC patient with continued vaginal bleeding in ; no IUP seen with rec ent US here EXAM PERFORMED: Transvaginal (TV) and Transabdominal (TA) EXAM MEASUREMENTS: GESTATIONAL AGE / DATING Physician Established: Not yet established Dates by LMP: (7 weeks/5 days) EDC: 12/05/2018 Dates by First Scan: no IUP seen Dates by Current Scan for: no IUP seen MATERNAL ANATOMY Uterus: 6.5 x 5.5 x 4.5cm; retroverted Right Ovary: 3.1 x 1.7 x 1.4cm; exophytic cyst noted medial to right ovary = 1.0 x 0.9 x 0.8cm Left Ovary: 3.1 x 1.4 x 1.6cm Post CDS / Adnexa: in posterior CDS an oval, heterogeneous mass isoechoic to uterus is noted and size = 3.0 x 3.3 x 1.3cm with internal color flow seen. Within right adnexa, medial and inferior to righ t ovary is separate mass also noted and is isoechoic to right ovary = 1.2 x 1.2 x 1.7cm with limited internal color flow and may represent blood product. Presence of free fluid: noted surrounding posterior CDS mass = 3.4 x 2.3 x 1.1cm; free fluid also not ed adjacent to right ovary medially = 0.4 x 0.7 x 0.9cm. Presence of corpus luteal cyst: in left ovary with peripheral ring of color flow = 1.4 x 0.9 x 1.1cm Presence of subchorionic bleed: no, as no IUP is seen. GESTATION / SURVEY Date of LMP: 02/28/2018 Beta HcG (if available): 223.5 IMPRESSION: 1. WE HAVE NOT EXCLUDED ECTOPIC . 2. WE HAVE NOT IDENTIFIED INTRAUTERINE GESTATION.
[2018-04-23] MEDS ORDERED: NALOXONE 0.4 MG/ML 1 ML VIAL IV PRN (13:20)
[2018-04-23] MEDS ORDERED: SODIUM CHLORIDE 0.9% 1,000 ML IV SCH (13:30)
--- NOTE | 2018-04-23 13:32 | P.HPOB ---
History of Present Illness H&P Date: 04/23/18 Chief Complaint: Pelvic pain and ectopic This patient is a pleasant 32-year-old 2 para 0 female estimated date of confinement 12/05/2018 estimated gestational age 7-1/2 weeks by her LMP who is been followed by Dr. Castaneda for vaginal bleeding and suspected ectopic . Patient's history is such that her beta hCG initially was decreasing and then most recently increased and an ultrasound done on Tuesday evening showed evidence of a complex lesion in the right adnexa with vascularity and some free fluid, most likely blood. Patient denied symptoms at that time and was given 80 mg of methotrexate on Tuesday evening. Patient called here this morning and was having some significant left-sided lower pelvic pain. Patient is instructed to come into the emergency department for evaluation. Patient's pain has subsequently improved since that time however she still having a dull achy pain in the central lower pelvis. Patient's hemoglobin on Tuesday was 14.2 and now is 14.0. Beta hCG on Tuesday was 271 is now to 223. Patient is being admitted for close observation and serial CBC. Review of Systems Constitutional: Denies chills, Denies fever Genitourinary: Reports abnormal vaginal bleeding, Reports pelvic pain Menstruation: Reports as per HPI Past Medical History Past Medical History: Asthma Additional Past Medical History / Comment(s): ectopic - treated 04/21 with methotrexate; patient had a section for viable in 2015. History of Any Multi-Drug Resistant Organisms: None Reported Past Surgical History: Section Additional Past Surgical History / Comment(s): [place] teeth removal 2003 Past Anesthesia/Blood Transfusion Reactions: No Reported Reaction Past Psychological History: No Psychological Hx Reported Smoking Status: Never smoker Past Alcohol Use History: Occasional Past Drug Use History: None Reported - Past Family History Father Family Medical History: Hypertension Medications and Allergies Home Medications Medication Instructions Recorded Confirmed Type Fluticasone/Salmeterol [Advair 1 puff INHALATION RT-BID 01/04/17 04/23/18 History 250-50 Diskus] Albuterol Inhaler [Ventolin Hfa 1 - 2 puff INHALATION RT-Q6H PRN 04/21/18 History Inhaler] Albuterol Nebulized [Ventolin 2.5 mg INHALATION RT-QID PRN 04/21/18 04/23/18 History Nebulized] Pnv,Calcium 72/Iron/Folic Acid 1 tab PO DAILY 04/23/18 04/23/18 History [ Plus Tablet] Allergies Allergy/AdvReac Type Severity Reaction Status Date / Time No Known Allergies Allergy Verified 04/23/18 13:12 Exam Vital Signs Temp Pulse Resp BP Pulse Ox 04/23/18 12:28 98 F 76 18 125/70 98 04/23/18 09:49 97.9 F 83 16 135/85 100 Intake and Output 04/22/18 04/23/18 04/23/18 22:59 06:59 14:59 Other: Weight 56.699 kg - OBG Physical Exam Abdomen detail: right lower quadrant: tenderness (Patient has mild tenderness in the lower abdomen, there is no rebound no guarding.), left upper quadrant: tenderness Results Ultrasounds as above. CBC is stable with a hemoglobin of 14 and beta hCG is decreased to 223 from Tuesday. Result Diagrams: 04/23/18 10:49 04/23/18 10:49 Abnormal Lab Results - Last 24 Hours (Table) 04/23/18 04/23/18 Range/Units 10:49 10:53 Total Bilirubin 1.8 H (0.2-1.3) mg/dL Urine Protein Trace H (Negative) Urine Ketones 1+ H (Negative) Urine Blood Moderate H (Negative) Urine Bacteria Rare H (None) /hpf Urine Mucus Few H (None) /hpf Assessment and Plan Assessment: This is a pleasant 32-year-old 2 para 1 female with ectopic that her ultrasound appears to be on the right however patient is having some increased left-sided pain this morning. Ultrasound does show some evidence of free fluid which is most likely blood but does not appear to be a significant amount and hemoglobin is stable at 14. Patient's pain has significantly increased since this morning and I did discuss that it is not uncommon to see the pain increases initially after given methotrexate. Patient however is concerned and I did discuss admitting her for observation and serial CBCs which she is more comfortable with. Plan therefore is to admit this patient for observation and repeat a CBC and beta hCG in the morning. I did explain to her that if she had significant pain or drop in her hemoglobin we would need to proceed with laparoscopic surgery for treatment. At this point it does appear she is responding to treatment and her pain does not require pain medications. (1) Ectopic Current Visit: Yes Status: Acute Code(s): O00.90 - UNSPECIFIED ECTOPIC WITHOUT INTRAUTERINE SNOMED Code(s): 11746044
[2018-04-23 13:39] VITALS: BMI 21.4
[2018-04-24 07:29] LABS: Basophils % (A) 1 %; Eosinophils # (A) 0.1 k/uL (0-0.7); Eosinophils % (A) 3 %; HCT 41.6 % (34.0-46.0); HGB 13.9 gm/dL (11.4-16.0); Lymphocytes # (A) 1.6 k/uL (1.0-4.8); Lymphocytes % (A) 35 %; MCH 32.7 pg (25.0-35.0); MCHC 33.5 g/dL (31.0-37.0); MCV 97.5 fL (80.0-100.0); Mean Platelet Volume 7.8; Monocytes # (A) 0.2 k/uL (0-1.0); Monocytes % (A) 4 %; Neutrophils # (A) 2.7 k/uL (1.3-7.7); Neutrophils % (A) 56 %; Platelet Count 184 k/uL (150-450); RBC 4.26 m/uL (3.80-5.40); RDW 11.8 % (11.5-15.5); WBC 4.7 k/uL (3.8-10.6)
[2018-04-24 08:47] VITALS: BP 141/85; PULSE 97; RESP 16; TEMP 97.8
--- NOTE | 2018-04-24 09:08 | P.DS ---
Providers Date of admission: 04/23/18 13:04 Expected date of discharge: 04/24/18 Attending physician: Patric Castaneda Primary care physician: Emy Rick [facility] Course: Vani is seen and evaluated. Her pain is completely gone at this time. I did review the ultrasound with radiology. Highly suspicious for ectopic in the right side with what appears to be potentially some blood clot near the right ovary. No significant free fluid in the cul-de-sac. No evidence of active bleeding. Her vital signs are stable and afebrile. Heart regular, lungs clear, extremities without pain. Abdomen is soft and nontender. She received methotrexate on Tuesday. Will plan repeat beta-hCG tomorrow and Tuesday and verify at least a 15-20% decrease over this time. All the questions including thorough discharge instructions with ectopic precautions reviewed with the patient and her . She will follow up with me on Tuesday. All other questions are answered for her at this time and at least at this time she is stable for discharge. Plan - Discharge Summary New Discharge Prescriptions: No Action Fluticasone/Salmeterol [Advair 250-50 Diskus] 1 puff INHALATION RT-BID Albuterol Inhaler [Ventolin Hfa Inhaler] 1 - 2 puff INHALATION RT-Q6H PRN PRN Reason: breathing Albuterol Nebulized [Ventolin Nebulized] 2.5 mg INHALATION RT-QID PRN PRN Reason: Shortness Of Breath Pnv,Calcium 72/Iron/Folic Acid [ Plus Tablet] 1 tab PO DAILY Discharge Medication List Fluticasone/Salmeterol [Advair 250-50 Diskus] 1 puff INHALATION RT-BID 01/04/17 [History] Albuterol Inhaler [Ventolin Hfa Inhaler] 1 - 2 puff INHALATION RT-Q6H PRN [History] Albuterol Nebulized [Ventolin Nebulized] 2.5 mg INHALATION RT-QID PRN 04/21/18 [ History] Pnv,Calcium 72/Iron/Folic Acid [ Plus Tablet] 1 tab PO DAILY 04/23/18 [ History] Follow up Appointment(s)/Referral(s): Emy Rick MD [Primary Care Provider] - 1-2 days Patric Castaneda DO [Doctor of Osteopathic Medicine] - 04/28/18 Activity/Diet/Wound Care/Special Instructions: Call or ports emergency room for any significant pain in her pelvis. Expect some cramping but if it requires more than Tylenol to relieve the pain she needs to report to emergency room worked very least call our office. She will have her baby she junk tomorrow and Tuesday to verify a adequate decrease. No vitamins was fully acid from this point forward either. Return her call for any concerning signs or symptoms like lightheadedness or dizziness or pain. She did have methotrexate and is aware of GI side effects potential from that medication. Discharge Disposition: HOME SELF-CARE
[2018-04-24] MEDS ORDERED: ACETAMINOPHEN TAB 325 MG TAB PO PRN (13:14)
== END 2018-04-24 10:12 | disposition home or self-care (01) ==
LOC: EC 09:42 → 4FBP 13:04
PROVIDERS: ADMIT Obstetrics & Gynecology; ATTEND Obstetrics & Gynecology
DX: O00.90 Unspecified ectopic pregnancy without intrauterine pregnancy (principal); R10.2 Pelvic and perineal pain; J45.909 Unspecified asthma, uncomplicated; Z79.51 Long term (current) use of inhaled steroids; Z82.49 Family history of ischemic heart disease and other diseases of the circulatory system
CPT/HCPCS: 99285; 36415; 86900; 86901; 80053; 82150; 83690; 85025 ×2; 85610; 85730; 81001; 84702 ×2; 76801; 76817; G0378 ×2

== ENCOUNTER → 2018-04-25 | Outpatient (CLI) | payer BC | END | disposition home or self-care (01) | LOC: LABWHC1 08:09 | PROVIDERS: ATTEND Obstetrics & Gynecology | DX: O00.90 Unspecified ectopic pregnancy without intrauterine pregnancy (principal) | CPT/HCPCS: 36415; 84702 ==

== ENCOUNTER → 2018-04-28 | Outpatient (CLI) | payer BC | END | disposition home or self-care (01) | LOC: LABWHC1 07:05 | PROVIDERS: ATTEND Obstetrics & Gynecology | DX: O00.90 Unspecified ectopic pregnancy without intrauterine pregnancy (principal) | CPT/HCPCS: 36415; 84702 ==

== ENCOUNTER 2018-05-02 15:13 | Inpatient (IN) | payer BC ==
[2018-05-02 15:44] VITALS: RESP 16; BMI 21.4
[2018-05-02 15:54] LABS: Basophils % (A) 1 %; Eosinophils # (A) 0.1 k/uL (0-0.7); Eosinophils % (A) 2 %; HGB 13.4 gm/dL (11.4-16.0); Lymphocytes # (A) 1.4 k/uL (1.0-4.8); Lymphocytes % (A) 29 %; MCH 33.2 pg (25.0-35.0); MCHC 34.4 g/dL (31.0-37.0); MCV 96.3 fL (80.0-100.0); Mean Platelet Volume 7.7; Monocytes # (A) 0.3 k/uL (0-1.0); Monocytes % (A) 6 %; Neutrophils # (A) 2.9 k/uL (1.3-7.7); Neutrophils % (A) 60 %; Platelet Count 236 k/uL (150-450); RBC 4.05 m/uL (3.80-5.40); RDW 12.2 % (11.5-15.5); WBC 4.8 k/uL (3.8-10.6)
--- NOTE | 2018-05-02 19:02 | P.HPOB ---
History of Present Illness H&P Date: 05/02/18 Chief Complaint: Ectopic Vani is a 32-year-old female with a known ectopic from prior studies. We've and following her baby hCGs down following methotrexate treatment. She had methotrexate up proxy 10 days ago. Initially a day 4 her beta hCG was approximately 350 and then 4 days later at 7 days post injection it was down to 255. Today it was continued to decrease at 160. Her hemoglobin is stable. This afternoon she began having a increase in pain following having significant pain last night she did not at that time notify us that she was having the pain. An ultrasound was done in the office since she was having some lightheadedness this morning as well. She did however go to work and was able to function at work well. Her lightheadedness and pain her resolved in my office this afternoon. There is some fluid in the cul-de-sac approximately 3 cm and some what looks like potentially clot around the fallopian tube region but there appears to be no active bleeding at this time. I suspect that this is bleeding back through the tube since she is asymptomatic and hemodynamically stable at this time. Rather than [place] to a surgery which may require loss of her fallopian tube since she is stable and is a very good reliable patient we have admitted her for observation status and we'll repeat the hemoglobin in the morning. Hopefully what we have discussed is what is occurring and she is not actively bleeding is not appear that she is actually bleeding is having a rupture of her fallopian tube at this time. She has no surgical abdomen at all. Her abdomen is soft it is nontender and nondistended. She also has good bowel sounds. All questions are answered for both she and her . We did discuss the possibility of just proceeding to a diagnostic laparoscopy but as she would prefer not to take the chance of losing her tube and since the baby hCGs are declining and she is hemodynamically and pain-free at this time will plan conservative therapy with the explicit understanding that she may still need to go to surgery should her condition deteriorate. Past Medical History Past Medical History: Asthma Additional Past Medical History / Comment(s): ectopic - treated 04/21 with methotrexate; patient had a section for viable infant in 2016. History of Any Multi-Drug Resistant Organisms: None Reported Past Surgical History: Section Additional Past Surgical History / Comment(s): [place] teeth removal 2003 Past Anesthesia/Blood Transfusion Reactions: No Reported Reaction Past Psychological History: No Psychological Hx Reported Smoking Status: Never smoker Past Alcohol Use History: Occasional Past Drug Use History: None Reported - Past Family History Father Family Medical History: Hypertension Medications and Allergies Home Medications Medication Instructions Recorded Confirmed Type Fluticasone/Salmeterol [Advair 1 puff INHALATION RT-BID 01/04/17 05/02/18 History 250-50 Diskus] Albuterol Inhaler [Ventolin Hfa 1 - 2 puff INHALATION RT-Q6H PRN 04/21/18 History Inhaler] Albuterol Nebulized [Ventolin 2.5 mg INHALATION RT-QID PRN 04/21/18 05/02/18 History Nebulized] Pnv,Calcium 72/Iron/Folic Acid 1 tab PO DAILY 04/23/18 05/02/18 History [ Plus Tablet] Allergies Allergy/AdvReac Type Severity Reaction Status Date / Time No Known Allergies Allergy Verified 05/02/18 15:20 Exam Osteopathic Statement: *. No significant issues noted on an osteopathic structural exam other than those noted in the History and Physical/Consult. Vital Signs Temp Pulse Resp BP Pulse Ox 05/02/18 15:30 98.1 F 96 16 131/86 97 Intake and Output 05/02/18 05/02/18 05/02/18 06:59 14:59 22:59 Other: Weight 56.699 kg - OBG Physical Exam Breast: both: normal (no masses) Abdomen: bowel sounds normal, no diffuse tenderness, no bruit present, no guarding noted, no hepatomegaly, no splenomegaly, no mass Vulva: both: normal Vagina: normal moisture, no discharge Cervix: no lesion, no discharge Uterus: normal size, normal contour Adnexa: both: normal Anus/Rectum: normal perianal skin, no rectal mass, no hemorrhoids, heme negative Results Result Diagrams: 05/02/18 15:40
[2018-05-03 08:29] VITALS: TEMP 98
--- NOTE | 2018-05-03 09:01 | P.PN ---
Progress Note - Text Progress Note Date: 05/03/18 Vani is seen and evaluated this morning. Her vital signs are stable and she is afebrile. She voices minimal to no complaints. She does note that is slightly increasing cramping this morning versus last night but is really not intense or severe and realistically is not necessarily surprising. The CBC for this morning is pending and we will base further recommendations on what that returns like and whether she has any change in her symptomatology this morning. The goal be to discharge her to home later today.
[2018-05-03 11:00] LABS: Basophils % (A) 0 %; Eosinophils # (A) 0.1 k/uL (0-0.7); Eosinophils % (A) 2 %; HGB 13.4 gm/dL (11.4-16.0); Lymphocytes # (A) 1.6 k/uL (1.0-4.8); Lymphocytes % (A) 29 %; MCH 33.4 pg (25.0-35.0); MCHC 34.4 g/dL (31.0-37.0); Mean Platelet Volume 7.4; Monocytes # (A) 0.3 k/uL (0-1.0); Monocytes % (A) 5 %; Neutrophils # (A) 3.4 k/uL (1.3-7.7); Neutrophils % (A) 63 %; Platelet Count 200 k/uL (150-450); RBC 4.02 m/uL (3.80-5.40); RDW 12.2 % (11.5-15.5); WBC 5.4 k/uL (3.8-10.6)
[2018-05-03 12:28] VITALS: BP 124/86; PULSE 80
--- NOTE | 2018-05-03 13:09 | P.DS ---
Providers Date of admission: 05/02/18 15:13 Expected date of discharge: 05/03/18 Attending physician: Patric Castaneda Primary care physician: Stated None Hospital Course: The man is seen and evaluated, CBC reviewed. There is no significant change in her hemoglobin, she is hemodynamically stable. Pain has essentially resolved this afternoon. We'll plan to discharge her to home and follow-up with and repeat beta hCG on Tuesday, should it continue to decline we'll plan weekly beta hCGs until 0. She and her are aware of risk of failure and potential rupture of fallopian tube during an ectopic and ectopic precautions were again reviewed and all questions are answered for her at this time. She will follow up in the next few days for her repeat beta hCG and is aware to return for any significant pain, heavy heavy bleeding, or any signs or symptoms of hypovolemia. She is otherwise stable at this time. Patient Condition at Discharge: Stable Plan - Discharge Summary New Discharge Prescriptions: No Action Fluticasone/Salmeterol [Advair 250-50 Diskus] 1 puff INHALATION RT-BID Albuterol Inhaler [Ventolin Hfa Inhaler] 1 - 2 puff INHALATION RT-Q6H PRN PRN Reason: breathing Albuterol Nebulized [Ventolin Nebulized] 2.5 mg INHALATION RT-QID PRN PRN Reason: Shortness Of Breath Pnv,Calcium 72/Iron/Folic Acid [ Plus Tablet] 1 tab PO DAILY Discharge Medication List Fluticasone/Salmeterol [Advair 250-50 Diskus] 1 puff INHALATION RT-BID 01/04/17 [History] Albuterol Inhaler [Ventolin Hfa Inhaler] 1 - 2 puff INHALATION RT-Q6H PRN [History] Albuterol Nebulized [Ventolin Nebulized] 2.5 mg INHALATION RT-QID PRN 04/21/18 [ History] Pnv,Calcium 72/Iron/Folic Acid [ Plus Tablet] 1 tab PO DAILY 04/23/18 [ History] Follow up Appointment(s)/Referral(s): Patric Castaneda DO [Doctor of Osteopathic Medicine] - 1 Week Activity/Diet/Wound Care/Special Instructions: Return or call with any significant pain not relieved by Tylenol lightheadedness or other signs or symptoms of hypovolemia. Discharge Disposition: HOME SELF-CARE
== END 2018-05-03 13:23 | disposition home or self-care (01) | DRG 833 ==
LOC: 4FBP 15:13
PROVIDERS: ADMIT Obstetrics & Gynecology; ATTEND Obstetrics & Gynecology
DX: O00.109 Unspecified tubal pregnancy without intrauterine pregnancy (principal); J45.909 Unspecified asthma, uncomplicated; Z79.899 Other long term (current) drug therapy
CPT/HCPCS: 84702; 85025; 86850; 86900; 86901

== ENCOUNTER → 2018-05-05 | Outpatient (CLI) | payer BC | END | disposition home or self-care (01) | LOC: LABWHC1 08:33 | PROVIDERS: ATTEND Obstetrics & Gynecology | DX: O00.90 Unspecified ectopic pregnancy without intrauterine pregnancy (principal) | CPT/HCPCS: 36415; 84702 ==

== ENCOUNTER → 2018-05-12 | Outpatient (CLI) | payer BC | END | disposition home or self-care (01) | LOC: LABWHC1 07:16 | PROVIDERS: ATTEND Obstetrics & Gynecology | DX: O03.9 Complete or unspecified spontaneous abortion without complication (principal); Z3A.00 Weeks of gestation of pregnancy not specified | CPT/HCPCS: 36415; 84702 ==

== ENCOUNTER → 2019-02-08 | Outpatient (CLI) | payer BC ==
[2019-02-08 16:56] LABS: HCT 41.9 % (34.0-46.0); HGB 13.7 gm/dL (11.4-16.0); MCH 32.3 pg (25.0-35.0); MCHC 32.8 g/dL (31.0-37.0); MCV 98.4 fL (80.0-100.0); Mean Platelet Volume 7.9; Platelet Count 207 k/uL (150-450); RBC 4.26 m/uL (3.80-5.40); RDW 12.2 % (11.5-15.5); WBC 5.3 k/uL (3.8-10.6)
== END | disposition home or self-care (01) ==
LOC: LABWHC1 16:41
PROVIDERS: ATTEND Physician Assistant
DX: N91.2 Amenorrhea, unspecified (principal); R53.83 Other fatigue
CPT/HCPCS: 36415; 84702; 85027

== ENCOUNTER → 2019-05-02 | Outpatient (CLI) | payer BC ==
[2019-05-02 16:29] LABS: T4, Free (Free Thyroxine) 1.1 ng/dL (0.80-1.80)
[2019-05-02 17:04] LABS: Estradiol 40.8 pg/mL; Follicle Stimulating Hormone 6.5 mIU/mL
[2019-05-02 17:41] LABS: Progesterone 0.4 ng/mL
== END | disposition home or self-care (01) ==
LOC: LABWHC1 08:22
PROVIDERS: ATTEND Obstetrics & Gynecology
DX: N97.0 Female infertility associated with anovulation (principal); Z13.29 Encounter for screening for other suspected endocrine disorder
CPT/HCPCS: 36415; 82670; 83001; 83002; 84144; 84146; 84439; 84443; 84479

== ENCOUNTER → 2019-05-09 | Outpatient (CLI) | payer BC ==
--- NOTE | 2019-05-09 16:53 | FL ---
EXAMINATION TYPE: FL hysterosalpingography DATE OF EXAM: 05/09/2019 CLINICAL HISTORY: N97.9 Infertility. 1 year post ectopic TECHNIQUE: The procedure was explained to the patient, the risks benefits and alternatives were discu ssed. All questions were answered. Informed consent was obtained. A timeout was performed. Patient was placed on the fluoroscopy table in the supine view. The speculum was placed. Vaginal vaul t was cleansed with Betadine. The HSG catheter was placed into the cervical os and the balloon inflat ed. Contrast was injected. Protrusion of the end of the procedure the catheter came out. The catheter was replaced and the procedure repeated. Catheter and speculum were withdrawn and a prone fluoroscop ic spot image was obtained. Overhead radiograph was then obtained after 5 minute period of time. Discharge instructions were discussed with the patient. Patient tolerated the procedure well. COMPARISON: NONE FINDINGS: The uterus fills promptly without intraluminal defects. There is contrast passing through the thin de licate fallopian tubes to the ends. Free spill is identified on the right. Free spill on the left was more difficult to confirm . Appears to be present adjacent to the distal fallopian tube on the overh ead delayed radiograph. IMPRESSION: 1. Bilateral fallopian tubes appear patent. 2. Uterus appears unremarkable
== END | disposition home or self-care (01) ==
LOC: RADUSWWP 13:11
PROVIDERS: ATTEND Obstetrics & Gynecology
DX: N97.9 Female infertility, unspecified (principal)
CPT/HCPCS: 58340; 74740; Q9967

== ENCOUNTER → 2019-08-18 | Outpatient (CLI) | payer BC ==
[2019-08-18 08:55] LABS: Basophils % (A) 1 %; Eosinophils # (A) 0.1 k/uL (0-0.7); Eosinophils % (A) 3 %; HCT 41.9 % (34.0-46.0); HGB 13.8 gm/dL (11.4-16.0); Lymphocytes # (A) 2.3 k/uL (1.0-4.8); Lymphocytes % (A) 52 %; MCH 32.9 pg (25.0-35.0); MCV 99.8 fL (80.0-100.0); Mean Platelet Volume 7.7; Monocytes # (A) 0.3 k/uL (0-1.0); Monocytes % (A) 6 %; Neutrophils # (A) 1.6 k/uL (1.3-7.7); Neutrophils % (A) 35 %; Platelet Count 237 k/uL (150-450); RDW 12.6 % (11.5-15.5); WBC 4.5 k/uL (3.8-10.6)
[2019-08-18 17:22] LABS: Albumin 4.4 g/dL (3.80-4.90); Albumin/Globulin Ratio 2.44 (1.60-3.17); Anion Gap 6.9 mmol/L (4.00-12.00); BUN/Creat Ratio 13.33 Ratio (12.00-20.00); Calcium 9.4 mg/dL (8.7-10.3); Carbon Dioxide 28.1 mmol/L (21.6-31.8); Chol/HDL Ratio 1.94; Globulin 1.8 g/dL (1.6-3.3); LDL Cholesterol,Calculated 51.2 mg/dL (0.0-131.0); Non-African American GFR(CKD) 82.8 (60.0-200.0); Potassium 4.2 mmol/L (3.5-5.5); Total Protein 6.2 g/dL (6.2-8.2); VLDL Calculation 12.8 mg/dL (5.00-40.00)
== END | disposition home or self-care (01) ==
LOC: LABWHC1 08:28
PROVIDERS: ATTEND Family Medicine
DX: Z00.00 Encounter for general adult medical examination without abnormal findings (principal)
CPT/HCPCS: 36415; 80053; 80061; 84443; 85025

== ENCOUNTER → 2019-08-30 | Outpatient (CLI) | payer BC | END | disposition home or self-care (01) | LOC: LABWHC1 09:08 | PROVIDERS: ATTEND Obstetrics & Gynecology | DX: N97.8 Female infertility of other origin (principal) | CPT/HCPCS: 36415; 84144 ==

== ENCOUNTER → 2019-09-25 | Outpatient (CLI) | payer BC | END | disposition home or self-care (01) | LOC: LABWHC1 16:04 | PROVIDERS: ATTEND Obstetrics & Gynecology Reproductive Endocrinology | DX: N97.1 Female infertility of tubal origin (principal) | CPT/HCPCS: 36415; 84144 ==

== ENCOUNTER → 2019-10-05 | Outpatient (CLI) | payer BC | END | disposition home or self-care (01) | LOC: LABWHC1 08:21 | PROVIDERS: ATTEND Obstetrics & Gynecology Reproductive Endocrinology | DX: Z32.00 Encounter for pregnancy test, result unknown (principal) | CPT/HCPCS: 36415; 84144; 84702 ==

== ENCOUNTER → 2019-10-10 | Outpatient (CLI) | payer BC | END | disposition home or self-care (01) | LOC: LABWHC1 08:13 | PROVIDERS: ATTEND Obstetrics & Gynecology | DX: O36.80X0 Pregnancy with inconclusive fetal viability, not applicable or unspecified (principal); Z3A.00 Weeks of gestation of pregnancy not specified | CPT/HCPCS: 36415; 84144; 84702 ==

== ENCOUNTER → 2020-01-14 | Outpatient (CLI) | payer BC | LOC: LABWHC1 08:14 | PROVIDERS: ATTEND Obstetrics & Gynecology Reproductive Endocrinology | DX: N97.8 Female infertility of other origin (principal) | CPT/HCPCS: 36415; 84144 ==

== ENCOUNTER → 2020-01-24 | Outpatient (CLI) | payer BC | END | disposition home or self-care (01) | LOC: LABWHC1 07:57 | PROVIDERS: ATTEND Obstetrics & Gynecology Reproductive Endocrinology | DX: Z32.00 Encounter for pregnancy test, result unknown (principal) | CPT/HCPCS: 36415; 84144; 84702 ==

== ENCOUNTER → 2020-03-12 | Outpatient (CLI) | payer BC ==
[2020-03-12 08:44] LABS: HCT 37.6 % (34.0-46.0); HGB 12.8 gm/dL (11.4-16.0); MCH 32.8 pg (25.0-35.0); MCV 96.5 fL (80.0-100.0); Mean Platelet Volume 8.2; Platelet Count 184 k/uL (150-450); RBC 3.89 m/uL (3.80-5.40); RDW 11.8 % (11.5-15.5)
[2020-03-12 18:08] LABS: African American GFR (CKD) 136.9 (60.0-200.0); Non-African American GFR(CKD) 118.1 (60.0-200.0)
[2020-03-12 19:18] LABS: Hepatitis B Surface Antigen Non-Reactive (Non-Reactive)
[2020-03-13 14:07] LABS: C. trachomatis,PCR Negative (Neg,Equiv); Chlamydia trachomatis Source Urine; N. gonorrhoeae,PCR Negative (Neg,Equiv); Neisseria Source Urine
== END | disposition home or self-care (01) ==
LOC: LABWHC1 08:01
PROVIDERS: ATTEND Obstetrics & Gynecology
DX: Z34.81 Encounter for supervision of other normal pregnancy, first trimester (principal)
CPT/HCPCS: 36415; 82565; 82947; 85027; 86762; 86780; 86850; 86900; 86901; 87340; 87491; 87591

== ENCOUNTER 2020-04-22 09:02 | Inpatient (IN) | payer BC ==
[2020-04-22] MEDS ORDERED: ALBUTEROL NEBULIZED 2.5 MG/3 ML INHALATION STA (09:20)
[2020-04-22] MEDS ORDERED: IPRATROPIUM 0.5 MG/2.5 ML NEBU INHALATION STA (09:20)
--- NOTE | 2020-04-22 09:26 | ED ---
General Adult HPI - General Chief complaint: Shortness of Breath Stated complaint: asthma Time Seen by Provider: 04/22/20 09:12 Source: patient, RN notes reviewed, old records reviewed Mode of arrival: ambulatory Limitations: no limitations - History of Present Illness Initial comments: 34-year-old female history of asthma currently on Advair, oral steroids and albuterol presenting with 2 weeks of worsening cough and dyspnea. 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 Patient reports cough, no fever. She has some chest tightness associated with this as well. She is currently 16 weeks . No, occasions with the . No lower extremity pain or swelling. - Related Data Home Medications Medication Instructions Recorded Confirmed Fluticasone/Salmeterol [Advair 1 puff INHALATION RT-BID 01/04/17 05/02/18 250-50 Diskus] Albuterol Inhaler (Mhu) [Ventolin 1 - 2 puff INHALATION RT-Q6H PRN 04/21/18 05/02/18 Hfa Inhaler] Albuterol Nebulized [Ventolin 2.5 mg INHALATION RT-QID PRN 04/21/18 05/02/18 Nebulized] Pnv,Calcium 72/Iron/Folic Acid 1 tab PO DAILY 04/23/18 05/02/18 [ Plus Tablet] Allergies Allergy/AdvReac Type Severity Reaction Status Date / Time No Known Allergies Allergy Verified 04/22/20 09:08 Review of Systems ROS Statement: Those systems with pertinent positive or pertinent negative responses have been documented in the HPI. ROS Other: All systems not noted in ROS Statement are negative. Past Medical History Past Medical History: Asthma Additional Past Medical History / Comment(s): ectopic - treated 04/21 with methotrexate; patient had a section for viable in 2016. History of Any Multi-Drug Resistant Organisms: None Reported Past Surgical History: Section Additional Past Surgical History / Comment(s): [place] teeth removal 2003 Past Anesthesia/Blood Transfusion Reactions: No Reported Reaction Past Psychological History: No Psychological Hx Reported Past Alcohol Use History: Occasional Past Drug Use History: None Reported - Past Family History Father Family Medical History: Hypertension General Exam Limitations: no limitations General appearance: alert Head exam: Present: atraumatic, normocephalic Eye exam: Present: normal appearance. Absent: PERRL, EOMI ENT exam: Present: normal exam Neck exam: Present: normal inspection. Absent: tenderness, meningismus Respiratory exam: Present: wheezes, other (bronchospastic cough) Cardiovascular Exam: Present: regular rate, normal rhythm GI/Abdominal exam: Present: soft. Absent: distended, tenderness, guarding Extremities exam: Present: normal inspection, normal capillary refill. Absent: pedal edema, calf tenderness Back exam: Present: normal inspection, full ROM Neurological exam: Present: alert, oriented X3, CN II-XII intact. Absent: motor sensory deficit Psychiatric exam: Present: normal affect, normal mood Skin exam: Present: warm, dry, intact. Absent: cyanosis, diaphoretic Course Vital Signs 04/22/20 04/22/20 04/22/20 09:05 09:38 09:51 Temperature 98.9 F Pulse Rate 109 H 86 89 Respiratory 16 Rate Blood Pressure 164/94 O2 Sat by Pulse 99 Oximetry EKG Findings - EKG Comments: EKG Findings:: EKG: Normal sinus rhythm with sinus arrhythmia, rate of 91, MO interval 142, QRS duration 68, QTC [address] segment elevation. Medical Decision Making - Medical Decision Making 34-year-old female with asthma exacerbation, failed outpatient treatment. I discussed case with Dr. Herrera who will admit, discussed case with Dr. Mancilla who is familiar with this patient and wanted her direct admitted. All laboratory testing, x-ray pending. Patient given a liter, Atrovent, started on IV fluids in the emergency department. She will be admitted for asthma exacerbation. - Lab Data Result diagrams: 04/22/20 09:20 Lab Results 04/22/20 Range/Units 09:20 WBC 15.3 H (3.8-10.6) k/uL RBC 3.57 L (3.80-5.40) m/uL Hgb 11.7 (11.4-16.0) gm/dL Hct 34.2 (34.0-46.0) % MCV 95.8 (80.0-100.0) fL MCH 32.8 (25.0-35.0) pg MCHC 34.2 (31.0-37.0) g/dL RDW 13.1 (11.5-15.5) % Plt Count 250 (150-450) k/uL Neutrophils % 88 % Lymphocytes % 9 % Monocytes % 3 % Eosinophils % 0 % Basophils % 0 % Neutrophils # 13.4 H (1.3-7.7) k/uL Lymphocytes # 1.3 (1.0-4.8) k/uL Monocytes # 0.4 (0-1.0) k/uL Eosinophils # 0.0 (0-0.7) k/uL Basophils # 0.0 (0-0.2) k/uL Disposition Clinical Impression: Asthma with acute exacerbation Disposition: ADMITTED IP TO THIS HOSP Condition: Stable Is patient prescribed a controlled substance at d/c from ED?: No Referrals: Emy Rick MD [Primary Care Provider] - 1-2 days Decision to Admit Reason: Admit from EC Decision Date: 04/22/20 Decision Time: 10:03
[2020-04-22 09:48] LABS: Basophils % (A) 0 %; Eosinophils % (A) 0 %; HCT 34.2 % (34.0-46.0); HGB 11.7 gm/dL (11.4-16.0); Lymphocytes # (A) 1.3 k/uL (1.0-4.8); Lymphocytes % (A) 9 %; MCH 32.8 pg (25.0-35.0); MCHC 34.2 g/dL (31.0-37.0); MCV 95.8 fL (80.0-100.0); Mean Platelet Volume 7.3; Monocytes # (A) 0.4 k/uL (0-1.0); Monocytes % (A) 3 %; Neutrophils # (A) 13.4 k/uL (1.3-7.7); Neutrophils % (A) 88 %; Platelet Count 250 k/uL (150-450); RBC 3.57 m/uL (3.80-5.40); RDW 13.1 % (11.5-15.5); WBC 15.3 k/uL (3.8-10.6)
[2020-04-22] MEDS ORDERED: NALOXONE 0.4 MG/ML 1 ML VIAL IV PRN (09:57)
[2020-04-22] MEDS ORDERED: BUDESONIDE 1 MG/2 ML NEBU INHALATION STA (09:58)
[2020-04-22] MEDS ORDERED: MONTELUKAST 10 MG TAB PO STA (09:59)
[2020-04-22] MEDS ORDERED: IPRATROPIUM-ALBUTEROL 3 ML NEB INHALATION STA (09:59)
[2020-04-22] MEDS ORDERED: methylPREDNISolone SOD SUCCI 125 MG/2 ML VIAL IV STA (10:00)
[2020-04-22 10:05] LABS: INR 0.9 (<1.2); Prothrombin Time 9.5 sec (9.0-12.0)
[2020-04-22 10:18] LABS: ALT 13 U/L (4-34); AST 21 U/L (14-36); African American GFR (CKD) >90 (>60 ml/min/1.73 sqM); Albumin 3.7 g/dL (3.5-5.0); Alkaline Phosphatase 47 U/L (38-126); Anion Gap 7 mmol/L; Blood Urea Nitrogen 8 mg/dL (7-17); Calcium 9.1 mg/dL (8.4-10.2); Carbon Dioxide 23 mmol/L (22-30); Chloride 107 mmol/L (98-107); Glucose 96 mg/dL (74-99); Non-African American GFR(CKD) >90 (>60 ml/min/1.73 sqM); Potassium 3.3 mmol/L (3.5-5.1); Sodium 137 mmol/L (137-145); Total Bilirubin 0.6 mg/dL (0.2-1.3); Total Protein 6.2 g/dL (6.3-8.2)
[2020-04-22] MEDS ORDERED: IPRATROPIUM-ALBUTEROL 3 ML NEB INHALATION PRN (10:38)
[2020-04-22] MEDS: SODIUM CHLORIDE 0.9% 1,000 ML IV SCH ×2 (10:46→21:00)
--- NOTE | 2020-04-22 10:47 | XR ---
EXAMINATION TYPE: XR chest 1V portable DATE OF EXAM: 04/22/2020 COMPARISON: None HISTORY: Difficulty breathing, asthma and TECHNIQUE: Single frontal view of the chest is obtained. FINDINGS: There is no focal air space opacity, pleural effusion, or pneumothorax seen. 2 probable ca lcified nodules present over the left breast region. The cardiac silhouette size is within normal kemp its. The osseous structures are intact. There are overlying cardiac leads, metallic density over th e left upper quadrant. IMPRESSION: No acute process. There are questionable calcifications seen over the left breast.
[2020-04-22 11:08] LABS: Partial Thromboplastin Time 20.5 sec (22.0-30.0)
[2020-04-22] MEDS ORDERED: POTASSIUM CHLORIDE ER 20 MEQ TAB.ER PO STA (11:27)
[2020-04-22] MEDS: IPRATROPIUM-ALBUTEROL 3 ML NEB INHALATION SCH ×3 (11:38→19:19)
[2020-04-22 12:06] LABS: Appearance,Urine Clear (Clear); Bilirubin,Urine Negative (Negative); Blood,Urine Negative (Negative); Color,Urine Yellow; Glucose,Urine (UA) Negative (Negative); Ketones,Urine Negative (Negative); Leukocyte Esterase,Urine Negative (Negative); Nitrite,Urine Negative (Negative); Protein,Urine Negative (Negative); Specific Gravity,Urine 1.005 (1.001-1.035); Urobilinogen,Urine <2.0 mg/dL (<2.0)
--- NOTE | 2020-04-22 13:38 | P.HPIM ---
History of Present Illness Patient is a pleasant 34-year-old female with known history of asthma and presently 16 weeks , patient was diagnosed with asthma when she was around 17 years of age came in with complaints of worsening cough and dyspnea patient the had similar symptoms about a week ago patient was given steroids and the there is little improvement after which they have gotten worse because of which patient has called her cephalometric tracer who asked her to come to the ER. Patient was also comparing of some chest tightness associated with this. Patient is unable to bring up anything after coughing. Patient chest x-ray did not show any pneumonia. Patient was already started on IV steroids by pulmonology. Patient denied any fever chills denied any nausea vomiting. Review of Systems REVIEW OF SYSTEMS: CONSTITUTIONAL: No fever, no malaise, no fatigue. HEENT: No recent visual problems or hearing problems. Denied any sore throat. CARDIOVASCULAR: No chest pain, orthopnea, PND, no palpitations, no syncope. PULMONARY: As mentioned in HPI GASTROINTESTINAL: No diarrhea, no nausea, no vomiting, no abdominal pain. NEUROLOGICAL: No headaches, no weakness, no numbness. HEMATOLOGICAL: Denies any bleeding or petechiae. GENITOURINARY: Denies any burning micturition, frequency, or urgency. MUSCULOSKELETAL/RHEUMATOLOGICAL: Denies any joint pain, swelling, or any muscle pain. ENDOCRINE: Denies any polyuria or polydipsia. The rest of the 14-point review of systems is negative. Past Medical History Past Medical History: Asthma Additional Past Medical History / Comment(s): ectopic - treated 04/21 with methotrexate; patient had a section for viable infant in 2016. History of Any Multi-Drug Resistant Organisms: None Reported Past Surgical History: Section Additional Past Surgical History / Comment(s): [place] teeth removal 2003 Past Anesthesia/Blood Transfusion Reactions: No Reported Reaction Past Psychological History: No Psychological Hx Reported Past Alcohol Use History: Occasional Past Drug Use History: None Reported - Past Family History Father Family Medical History: Hypertension Medications and Allergies Home Medications Medication Instructions Recorded Confirmed Type Albuterol Nebulized [Ventolin 2.5 mg INHALATION RT-QID PRN 04/21/18 04/22/20 History Nebulized] Pnv,Calcium 72/Iron/Folic Acid 1 tab PO DAILY 04/23/18 04/22/20 History [ Plus Tablet] Albuterol Sulfate [Ventolin HFA] 1 - 2 puff INHALATION RT-Q6H PRN 04/22/20 04/22/20 History Aspirin EC [Ecotrin Low Dose] 81 mg PO DAILY 04/22/20 04/22/20 History Fluticasone/Salmeterol [Advair 1 puff INHALATION RT-BID 04/22/20 04/22/20 History 500-50 Diskus] Levothyroxine Sodium [Synthroid] 25 mcg PO DAILY 04/22/20 04/22/20 History Montelukast [Singulair] 10 mg PO HS 04/22/20 04/22/20 History predniSONE See Taper PO DIRECTED 04/22/20 04/22/20 History Allergies Allergy/AdvReac Type Severity Reaction Status Date / Time No Known Allergies Allergy Verified 04/22/20 10:28 Physical Exam Vitals: Vital Signs Temp Pulse Resp BP Pulse Ox 04/22/20 12:30 98 11 L 128/77 96 04/22/20 12:00 110 H 9 L 128/76 99 04/22/20 11:49 92 04/22/20 11:40 88 04/22/20 11:30 77 18 129/87 98 04/22/20 11:00 92 17 128/80 98 04/22/20 10:30 102 H 18 140/87 96 04/22/20 10:00 98 13 137/92 97 04/22/20 09:51 89 04/22/20 09:38 86 04/22/20 09:05 98.9 F 109 H 16 164/94 99 Intake and Output 04/21/20 04/22/20 04/22/20 22:59 06:59 14:59 Other: Weight 58.967 kg PHYSICAL EXAMINATION: GENERAL: The patient is alert and oriented x3, not in any acute distress. Well developed, well nourished. HEENT: Pupils are round and equally reacting to light. EOMI. No scleral icterus. No conjunctival pallor. Normocephalic, atraumatic. No pharyngeal erythema. No thyromegaly. CARDIOVASCULAR: S1 and S2 present. No murmurs, rubs, or gallops. PULMONARY: Minimal bilateral rhonchi fairly good air entry minimal wheezing on exam. ABDOMEN: Soft, nontender, nondistended, normoactive bowel sounds. No palpable organomegaly. MUSCULOSKELETAL: No joint swelling or deformity. EXTREMITIES: No cyanosis, clubbing, or pedal edema. NEUROLOGICAL: Gross neurological examination did not reveal any focal deficits. SKIN: No rashes. Results CBC & Chem 7: 04/22/20 09:04/22/20 09:20 Labs: Abnormal Lab Results - Last 24 Hours (Table) 04/22/20 04/22/20 04/22/20 Range/Units :13 04: 09: WBC 15.3 H (3.8-10.6) k/uL RBC 3.57 L (3.80-5.40) m/uL Neutrophils # 13.4 H (1.3-7.7) k/uL APTT 20.5 L (22.0-30.0) sec Potassium 3.3 L (3.5-5.1) mmol/L Creatinine 0.50 L (0.52-1.04) mg/dL Total Protein 6.2 L (6.3-8.2) g/dL Assessment and Plan Plan: 1 acute asthma exacerbation, patient appears to have intermittent asthma with acute exacerbation at this time: Patient will be continued consistent steroids, inhalational treatments. Patient does have a bronchitis which is ALLERGIC bronchitis will not require any antibiotics at this time -Chest pressure secondary to asthma, EKG and troponin were within normal limits. -GI prophylaxis with Pepcid DVT prophylaxis: Early ambulation -Gross cytosis secondary to systemic steroids -Hypokalemia potassium will be replaced -
[2020-04-22] MEDS: methylPREDNISolone SOD SUCCI 125 MG/2 ML VIAL IV SCH ×2 (13:39→18:06)
--- NOTE | 2020-04-22 14:31 | CONS ---
CONSULTATION PULMONARY/CRITICAL CARE CONSULT: DATE OF SERVICE: April 22, 2020 This is a 34-year-old female who I met for the first time in the office last week. She has a history of asthma. Her asthma recently has been out of control and we attempted to give her additional medications last week to see if we could get her back under control. Her symptoms include chest tightness, wheezing, cough and shortness of breath. We bumped her Advair up to 500/50 one puff twice a day. We also recommended Singulair 10 mg at bedtime. We gave her Depo-Medrol 80 mg IM and I gave her prednisone 40 mg a day and told to stay on 40 mg until she started to note improvement. Unfortunately, over the last couple of days and over the weekend, she has not really noticed any improvement, and I saw her today in the ICU. The patient was quite bronchospastic still. She is not coughing up any phlegm. There is no fever or chills. She was only minimally better. She has been using her nebulizer machine 3 or 4 times a day. HOME MEDICATIONS: Include Advair 500/50 one puff twice a day, albuterol inhaler, updrafts with albuterol, vitamins, and prednisone. In addition, we placed her on Singulair 10 mg at bedtime. MEDICAL HISTORY: Positive only for asthma. Additional medical history includes previous ectopic , and in 2016. SURGICAL HISTORY: Includes only a and wisdom teeth removal. SOCIAL HISTORY: Negative for tobacco, alcohol or illicit drug use. FAMILY HISTORY: Positive for father with hypertension. The rest of the history is not too remarkable. REVIEW OF SYSTEMS: CONSTITUTIONAL negative . Neurologic negative. HEENT: Negative. Cardiovascular negative. PULMONARY: Shortness of breath, chest tightness, wheezing cough, shortness of breath without phlegm production. GI negative. negative. RHEUMATOLOGIC: Negative. IMMUNOLOGIC: Negative. ENDOCRINOLOGIC: Negative. DERMATOLOGIC: Negative. PHYSICAL EXAMINATION: VITAL SIGNS: Current vital signs temperature 99, heart rate 109, respiratory rate 16, blood pressure 164/94 mean is 117. Room air saturation 99%. Appears in no acute distress. Quite anxious. HEENT: Examination is grossly unremarkable. NECK: Supple full range of motion. No adenopathy. Neck veins are flat. CARDIOVASCULAR: Examination reveals tachycardia. Heart rate about 100 beats per minute. S1, S2 normal. There is no murmur. LUNGS: Expiratory and inspiratory wheezes and rhonchi. There is prolongation. Breath sounds are coarse. Adventitious lung sounds are more prominent on forced maneuver. ABDOMEN: Soft. EXTREMITIES are intact. No cyanosis, clubbing, or edema. SKIN: Without rash. NEUROLOGIC: Examination is brief but nonfocal. LABS: Reviewed. White count 15.3, hemoglobin 11.7, hematocrit 34.2, platelet count 350,000. Sodium 137, potassium 3.3, chloride 107, CO2 23 anion gap is 7. BUN and creatinine were 8 and 0.5. The rest of the labs look okay. She is 16 weeks . Microbiology is negative. A chest x-ray was done by the emergency room physician and all it shows really is hyperinflation. Current medications are reviewed. I wrote some basic orders. She should be on Pulmicort and formoterol 1 mg 20 mcg respectively twice a day. In addition, she should be on DuoNeb q.i.d. and p.r.n. We will also recommend Singulair 10 mg at bedtime, Solu-Medrol 60 mg q.6 hours, and saline at 75 mL an hour. No antibiotics are really needed at this time. I will have our nurse practitioner put in for a urine specimen just to make sure there is no evidence of proteinuria. I did notice that she was a bit hypertensive, probably from her asthma being act more active at this time. I did not notice any lower extremity edema. ASSESSMENT: 1. Acute asthma exacerbation, likely triggered by environmental allergies and stress. 2. Currently 16 weeks . PLAN: Plan please see my orders above. I did speak to the ER physician, Dr. Manuel. The patient's chest x-ray shows evidence of hyperinflation. The patient will be placed on Pulmicort and formoterol q.12, DuoNeb q.i.d. and p.r.n., Solu-Medrol 60 mg q.6h, and Singulair 10 mg at bedtime. A Additional recommendations and suggestions are forthcoming. We will check a UA to make sure there is no proteinuria. MMODL / IJN: [id number] /
[2020-04-22] MEDS ORDERED: CALCIUM CARBONATE 500 MG CHEWABLE PO PRN (16:22)
[2020-04-22] MEDS ORDERED: ACETAMINOPHEN TAB 325 MG TAB PO PRN (16:22)
[2020-04-22] MEDS: BUDESONIDE 1 MG/2 ML NEBU INHALATION SCH (19:19)
[2020-04-22] MEDS: FORMOTEROL FUMARATE 20 MCG/2 ML NEBU INHALATION SCH (19:36)
[2020-04-22] MEDS: FAMOTIDINE 20 MG TAB PO SCH (20:59)
[2020-04-22 21:02] LABS: Glucose,Whole Blood 189 mg/dL (75-99)
[2020-04-23] MEDS: methylPREDNISolone SOD SUCCI 125 MG/2 ML VIAL IV SCH ×4 (00:07→17:18)
[2020-04-23 05:59] LABS: Glucose,Whole Blood 128 mg/dL (75-99)
[2020-04-23] MEDS: FORMOTEROL FUMARATE 20 MCG/2 ML NEBU INHALATION SCH ×2 (07:56→19:35)
[2020-04-23] MEDS: IPRATROPIUM-ALBUTEROL 3 ML NEB INHALATION SCH ×4 (07:56→19:35)
[2020-04-23] MEDS: BUDESONIDE 1 MG/2 ML NEBU INHALATION SCH ×2 (07:56→19:35)
[2020-04-23] MEDS: FAMOTIDINE 20 MG TAB PO SCH ×2 (08:00→20:53)
[2020-04-23] MEDS: PRENATAL VIT-IRON-FOLIC ACID 1 EACH CAP PO SCH (08:00)
[2020-04-23] MEDS: ASPIRIN 81 MG PO SCH (08:00)
[2020-04-23] MEDS: INSULIN ASPART (NovoLOG) 100 UNIT/ML VIAL SQ SCH ×4 (08:01→20:53)
--- NOTE | 2020-04-23 11:31 | PN ---
PROGRESS NOTE PULMONARY/CRITICAL CARE PROGRESS NOTE: DATE OF SERVICE: 04/23/2020 A 34-year-old female who was recently admitted to the hospital for an asthma exacerbation. I saw him in the office last week. At that time, we increased her Advair up from 250/50 to 500/50, one puff twice a day, added montelukast 10 mg at bedtime. We also gave her Depo-Medrol 80 mg IM and prednisone at 40 mg a day, not to wean until she started to improve. She did not really have much improvement or any improvement over the weekend. On Tuesday, I met her in the intensive care unit and we decided to go ahead and just admit her to the hospital. Currently, she is in OB unit. She is receiving IV Solu-Medrol 60 mg q.6, Pulmicort 1 mg twice a day with Perforomist 20 mcg twice a day and Singulair 10 mg at bedtime along with DuoNeb q.i.d. and p.r.n. She is starting to feel a bit better and her examination today was certainly much improved. Current vital signs are reviewed, temperature 98.2, heart rate 81, respiratory rate 17, blood pressure 105/60, mean 75, room air saturation 96%. Appears in no acute distress. HEENT: Examination is grossly unremarkable. NECK: Supple. CARDIOVASCULAR: Examination reveals regular rhythm and rate. S1, S2 normal. LUNGS: Reveal some mild expiratory wheezes and rhonchi. She is much improved clinically. There is some increased adventitious lung sounds and cough on forced maneuver. ABDOMEN: Soft. EXTREMITIES: Intact. SKIN: Without rash. NEUROLOGIC: Examination is brief but nonfocal. No additional labs to report. Chest x-ray shows evidence of hyperinflation. Medications are reviewed. Microbiology is negative. ASSESSMENT: 1. Asthma exacerbation, likely triggered by environmental factors as well as either anxiety/stress. 2. Currently 16 weeks' . PLAN: The patient will continue on all current medications. Hopeful discharge by Tuesday. She does have a to attend on Tuesday for her [id number]. No changes in medications at this time. I want to treat her aggressively. Additional recommendations and suggestions are forthcoming. She will follow up with me in the office post discharge. MMODL / IJN: [id number] /
[2020-04-23 11:41] LABS: Glucose,Whole Blood 107 mg/dL (75-99)
[2020-04-23] MEDS: SODIUM CHLORIDE 0.9% 1,000 ML IV SCH (12:23)
--- NOTE | 2020-04-23 14:19 | P.PN ---
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 Patient is still getting short of breath and bit of becoming bit tachycardic upon ambulation although saturating well. Constitutional: Denied any fatigue denied any fever. Cardio vascular: denied any chest pain, palpitations Gastrointestinal denied any nausea vomiting Pulmonary: Denied any shortness of breath cough Neurologic denied any new focal deficits All inpatient medications were reviewed and appropriate changes in these medications as dictated in the interval history and assessment and plan. Objective - Vital Signs Vital signs: Vital Signs Temp 98.3 F 04/23/20 07:57 Pulse 114 H 04/23/20 12:42 Resp 16 04/23/20 09:00 BP 121/65 04/23/20 07:57 Pulse Ox 97 04/23/20 07:57 Intake & Output 04/22/20 04/23/20 04/23/20 18:59 06:59 18:59 Intake Total 200 720 Balance 200 720 Weight 58.967 kg Intake: Intake, IV Titration 600 Amount Sodium Chloride 0.9% 1, 600 000 ml @ 75 mls/hr IV . [id number] [facility] Rx#:[id number] Oral 200 120 Other: Voiding Method Toilet # Voids 1 1 1 - Exam PHYSICAL EXAMINATION: GENERAL: The patient is alert and oriented x3, not in any acute distress. Well developed, well nourished. HEENT: Pupils are round and equally reacting to light. EOMI. No scleral icterus. No conjunctival pallor. Normocephalic, atraumatic. No pharyngeal erythema. No thyromegaly. CARDIOVASCULAR: S1 and S2 present. No murmurs, rubs, or gallops. PULMONARY: Good air entry into bilateral lung izaguirre with mild bilateral rhonchi and wheezing ABDOMEN: Soft, nontender, nondistended, normoactive bowel sounds. No palpable organomegaly. MUSCULOSKELETAL: No joint swelling or deformity. EXTREMITIES: No cyanosis, clubbing, or pedal edema. NEUROLOGICAL: Gross neurological examination did not reveal any focal deficits. SKIN: No rashes. - Labs CBC & Chem 7: 04/22/20 09:20 04/22/20 09:20 Labs: Abnormal Lab Results - Last 24 Hours (Table) 09/04/23/20 04/23/20 Range/Units 21:01 05:58 11:40 POC Glucose (mg/dL) 189 H 128 H 107 H (75-99) mg/dL Assessment and Plan Plan: 1 acute asthma exacerbation, patient appears to have intermittent asthma with acute exacerbation at this time: Patient will be continued consistent steroids, inhalational treatments. Patient does have a bronchitis which is ALLERGIC bronchitis will not require any antibiotics at this time -Chest pressure secondary to asthma, EKG and troponin were within normal limits. -GI prophylaxis with Pepcid DVT prophylaxis: Early ambulation -Leukocytosis secondary to systemic steroids -Hypokalemia potassium was replaced -
[2020-04-23 16:49] LABS: Glucose,Whole Blood 130 mg/dL (75-99)
--- NOTE | 2020-04-23 17:04 | P.OBCN ---
History of Present Illness Consult date: 04/23/20 Requesting physician: Trev Herrera Reason for consult: early problem Chief complaint: Asthma History of present illness: Vani is a 34-year-old female and is well known to me from prior as well as this . She has had asthmatic bronchitis symptomatically for cl ose to a year she relates with her new child causing multiple infections and did been controlled up until the last several weeks when she began to get more short of breath. She has seen maternal medicine during this and they were working on solution for breathing issues but she got so sick that now pulmonary has seen her and we'll defer all asthmatic decisions to the grid trimmer. We will make sure we hear heart tones but there is limited that I can offer beyond the vitamin at this time. We will plan to continue close observational care with you at your management is appreciated. Past Medical History Past Medical History: Asthma, GERD/Reflux, Thyroid Disorder Additional Past Medical History / Comment(s): Pt is 16 weeks , bronchitis, hypothyroid, past ectopic . History of Any Multi-Drug Resistant Organisms: None Reported Past Surgical History: Section Additional Past Surgical History / Comment(s): [place] teeth removal 2003 Past Anesthesia/Blood Transfusion Reactions: No Reported Reaction Smoking Status: Never smoker - Past Family History Father Family Medical History: Hypertension Mother Family Medical History: No Reported History Additional Family Medical History / Comment(s): Mother is healthy Medications and Allergies Home Medications Medication Instructions Recorded Confirmed Type Albuterol Nebulized [Ventolin 2.5 mg INHALATION RT-QID PRN 04/21/18 04/22/20 History Nebulized] Pnv,Calcium 72/Iron/Folic Acid 1 tab PO DAILY 04/23/18 04/22/20 History [ Plus Tablet] Albuterol Sulfate [Ventolin HFA] 1 - 2 puff INHALATION RT-Q6H PRN 04/22/20 0 04/22/20 History Aspirin EC [Ecotrin Low Dose] 81 mg PO DAILY 04/22/20 04/22/20 History Fluticasone/Salmeterol [Advair 1 puff INHALATION RT-BID 04/22/20 04/22/20 History 500-50 Diskus] Levothyroxine Sodium [Synthroid] 25 mcg PO DAILY 04/22/20 04/22/20 History Montelukast [Singulair] 10 mg PO HS 04/22/20 04/22/20 History predniSONE See Taper PO DAILY 04/22/20 04/23/20 History Allergies Allergy/AdvReac Type Severity Reaction Status Date / Time No Known Allergies Allergy Verified 04/22/20 10:28 Exam Osteopathic Statement: *. No significant issues noted on an osteopathic structural exam other than those noted in the History and Physical/Consult. Vital Signs Temp Pulse Pulse Resp BP Pulse Ox 04/23/20 15:50 105 H 04/23/20 15:40 95 04/23/20 15:00 97.8 F 95 16 108/68 98 04/23/20 12:42 114 H 04/23/20 12:29 104 H 04/23/20 09:00 65 16 04/23/20 08:20 90 04/23/20 08:08 86 04/23/20 08:07 86 04/23/20 07:59 97 04/23/20 07:57 98.3 F 65 16 121/65 97 04/23/20 03:00 98.2 F 81 17 105/60 96 04/22/20 21:00 112 H 16 04/22/20 19:39 93 04/22/20 19:34 93 04/22/20 19:20 92 Intake and Output 04/23/20 04/23/20 04/23/20 06:59 14:59 22:59 Intake Total 720 Balance 720 Intake: Intake, IV Titration 600 Amount Sodium Chloride 0.9% 1, 600 000 ml @ 75 mls/hr IV . [id number] [facility] Rx#:[id number] Oral 120 Other: Voiding Method Toilet # Voids 1 1 Results Result Diagrams: 04/22/20 09:20 04/22/20 09:20 Abnormal Lab Results - Last 24 Hours (Table) 04/22/20 04/23/20 04/23/20 Range/Units 21:01 05:58 11:40 POC Glucose (mg/dL) 189 H 128 H 107 H (75-99) mg/dL 04/23/20 Range/Units 16:47 POC Glucose (mg/dL) 130 H (75-99) mg/dL
[2020-04-23 20:40] LABS: Glucose,Whole Blood 166 mg/dL (75-99)
[2020-04-23] MEDS: MONTELUKAST 10 MG TAB PO SCH (20:53)
[2020-04-23 21:48] VITALS: RESP 18
[2020-04-24] MEDS: methylPREDNISolone SOD SUCCI 125 MG/2 ML VIAL IV SCH ×4 (00:27→17:17)
[2020-04-24 06:32] LABS: Glucose,Whole Blood 123 mg/dL (75-99)
[2020-04-24] MEDS: SODIUM CHLORIDE 0.9% 1,000 ML IV SCH ×2 (06:54→15:40)
[2020-04-24] MEDS: IPRATROPIUM-ALBUTEROL 3 ML NEB INHALATION SCH ×4 (07:18→19:19)
[2020-04-24] MEDS: FORMOTEROL FUMARATE 20 MCG/2 ML NEBU INHALATION SCH ×2 (07:18→19:18)
[2020-04-24] MEDS: BUDESONIDE 1 MG/2 ML NEBU INHALATION SCH ×2 (07:18→19:18)
[2020-04-24] MEDS: INSULIN ASPART (NovoLOG) 100 UNIT/ML VIAL SQ SCH ×4 (07:59→20:42)
--- NOTE | 2020-04-24 07:59 | P.PN ---
Subjective Progress Note Date: 04/24/20 Principal diagnosis: Acute exacerbation of moderate persistent chronic bronchial asthma The patient is seen today 04/24/2020 in follow-up in the observation unit. She is currently sitting up in bed. Awake and alert in no acute distress. She is still dyspneic with minimal exertion. She still has a loose nonproductive cough. Some chest tightness and wheezing. Improved but not quite back to her baseline.She is maintaining good O2 saturations in the 90s on room air. She's been afebrile. Hemodynamically stable. Blood glucose 123. She is maintained on DuoNeb inhalations, Pulmicort and Perforomist inhalations, IV Solu-Medrol, Singulair. Objective - Vital Signs Vital signs: Vital Signs Temp 98.1 F 04/24/20 03:00 Pulse 103 H 04/24/20 07:40 Resp 18 04/24/20 03:00 BP 116/65 04/24/20 03:00 Pulse Ox 97 04/24/20 03:00 Intake & Output 04/23/20 04/24/20 04/24/20 18:59 06:59 18:59 Intake Total 200 Balance 200 Intake: Other 200 Other: Voiding Method Toilet # Voids 1 1 - Exam GENERAL EXAM: Alert, active, very pleasant 34-year-old female patient, on room air comfortable in no apparent distress. HEAD: Normocephalic. EYES: Normal reaction of pupils, equal size. NOSE: Clear with pink turbinates. THROAT: No erythema or exudates. NECK: No masses, no JVD. CHEST: No chest wall deformity. LUNGS: Equal air entry with few bilateral end expiratory wheeze, coarse rhonchi, prolongation of forced maneuver, coughs on forced maneuver. CVS: S1 and S2 normal with no audible murmur, regular rhythm. ABDOMEN: No hepatosplenomegaly, normal bowel sounds, no guarding or rigidity. SPINE: No scoliosis or deformity SKIN: No rashes CENTRAL NERVOUS SYSTEM: No focal deficits, tone is normal in all 4 extremities. EXTREMITIES: There is no peripheral edema. No clubbing, no cyanosis. Peripheral pulses are intact. - Labs CBC & Chem 7: 04/22/20 09:20 04/22/20 09:20 Labs: Abnormal Lab Results - Last 24 Hours (Table) 04/23/20 04/23/20 04/23/20 Range/Units 11:40 16:47 20:39 POC Glucose (mg/dL) 107 H 130 H 166 H (75-99) mg/dL 04/24/20 Range/Units 06:31 POC Glucose (mg/dL) 123 H (75-99) mg/dL Assessment and Plan Assessment: 1 Acute exacerbation of moderate persistent chronic bronchial asthma 2 16 weeks gestation Plan: The patient was seen and evaluated by Dr. Mancilla We'll continue with the current medication Add Mucinex Increase her activity as tolerated Discharge in the a.m. I, the cosigning physician, performed a history & physical examination of the patient. Lungs sounds with bilateral end expiratory wheeze, few coarse current rhonchi. Prolongation with forced expiratory maneuver. Cough with expiratory maneuvers.. Maintaining good O2 saturations in the 90s on room air. I discussed the assessment and plan of care with my nurse practitioner, Almita Meredith. I attest to the above note as dictated by her.
[2020-04-24] MEDS: ASPIRIN 81 MG PO SCH (08:09)
[2020-04-24] MEDS: FAMOTIDINE 20 MG TAB PO SCH ×2 (08:09→20:40)
[2020-04-24] MEDS: PRENATAL VIT-IRON-FOLIC ACID 1 EACH CAP PO SCH (08:09)
[2020-04-24 11:44] LABS: Glucose,Whole Blood 114 mg/dL (75-99)
[2020-04-24] MEDS: LEVOTHYROXINE 25 MCG TAB PO SCH (12:18)
[2020-04-24] MEDS: guaiFENesin-DM 600/30MG 1 EACH TAB.ER.12H PO SCH ×2 (12:19→20:40)
[2020-04-24 16:52] LABS: Glucose,Whole Blood 124 mg/dL (75-99)
[2020-04-24 20:40] LABS: Glucose,Whole Blood 131 mg/dL (75-99)
[2020-04-24] MEDS: MONTELUKAST 10 MG TAB PO SCH (20:40)
--- NOTE | 2020-04-24 21:45 | P.PN ---
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 Patient is still getting short of breath and bit of becoming bit tachycardic upon ambulation although saturating well. 04/24/2020 Patient is currently sitting in the bed. Minimal exertional dyspnea. Breathing status is improving otherwise compared to yesterday. Patient did have cough last night which is subsiding today. No complaints of fever or chills. Patient does have minimal exertional wheezing on exam. Patient is slightly tachycardic today likely due to breathing treatments. Patient is being continued on methylprednisolone 60 mg every 6 hourly and Pulmicort, Perforomist. Oxygen therapy as needed. Pulmonary is following. Anticipate discharge in next 24 to 48 hours with more clinical improvement. Current medications reviewed. Constitutional: Denied any fatigue denied any fever. Cardio vascular: denied any chest pain, palpitations Gastrointestinal denied any nausea vomiting Pulmonary: Denied any shortness of breath cough Neurologic denied any new focal deficits All inpatient medications were reviewed and appropriate changes in these medications as dictated in the interval history and assessment and plan. Objective - Vital Signs Vital signs: Vital Signs Temp 98.7 F 04/24/20 09:00 Pulse 98 04/24/20 09:00 Resp 18 04/24/20 09:00 BP 123/60 04/24/20 09:00 Pulse Ox 98 04/24/20 09:00 Intake & Output 04/23/20 04/24/20 04/24/20 18:59 06:59 18:59 Intake Total 200 Balance 200 Intake: Other 200 Other: Voiding Method Toilet # Voids 1 1 - Exam PHYSICAL EXAMINATION: Patient is lying in the bed comfortably, no acute distress, awake alert and oriented.. HEENT: Normocephalic. Neck is supple. Pupils reactive. Nostrils clear. Oral cavity is moist. Ears reveal no drainage. Neck reveals no JVD, carotid bruits, or thyromegaly. CHEST EXAMINATION: Trachea is central. Symmetrical expansion. Minimal expiratory wheeze. Scattered rhonchi. Nonlabored breathing. CARDIAC: Normal S1, S2 with no gallops. No murmurs ABDOMEN: Soft. Bowel sounds normal. No organomegaly. No abdominal bruits. Extremities: reveal no edema. No clubbing or cyanosis Neurologically awake, alert, oriented x3 with well-coordinated movements. No fo cong deficits noted Skin: No rash or skin lesions. Psychiatric: Coperative. Nonsuicidal Musculoskeletal: No joint swelling or deformity. Normal range of motion. - Labs CBC & Chem 7: 04/22/20 09:20 04/22/20 09:20 Labs: Abnormal Lab Results - Last 24 Hours (Table) 04/23/20 04/23/20 04/23/20 Range/Units 11:40 16:47 20:39 POC Glucose (mg/dL) 107 H 130 H 166 H (75-99) mg/dL 04/24/20 Range/Units 06:31 POC Glucose (mg/dL) 123 H (75-99) mg/dL Assessment and Plan Assessment: acute asthma exacerbation, patient appears to have intermittent asthma with acute exacerbation at this time: Patient will be continued consistent steroids, inhalational treatments. Patient does have a bronchitis which is ALLERGIC bronchitis will not require any antibiotics at this time -Chest pressure secondary to asthma, EKG and troponin were within normal limits. -GI prophylaxis with Pepcid DVT prophylaxis: Early ambulation -Leukocytosis secondary to systemic steroids -Hypokalemia potassium was replaced -16-week intrauterine Time with Patient: Greater than 30
[2020-04-25] MEDS: methylPREDNISolone SOD SUCCI 125 MG/2 ML VIAL IV SCH ×2 (00:32→06:24)
[2020-04-25 02:16] VITALS: BP 119/61; TEMP 98
[2020-04-25] MEDS: LEVOTHYROXINE 25 MCG TAB PO SCH (06:24)
[2020-04-25 06:25] LABS: Glucose,Whole Blood 116 mg/dL (75-99)
[2020-04-25] MEDS: INSULIN ASPART (NovoLOG) 100 UNIT/ML VIAL SQ SCH (07:25)
[2020-04-25] MEDS: FORMOTEROL FUMARATE 20 MCG/2 ML NEBU INHALATION SCH (07:54)
[2020-04-25] MEDS: BUDESONIDE 1 MG/2 ML NEBU INHALATION SCH (07:54)
[2020-04-25] MEDS: IPRATROPIUM-ALBUTEROL 3 ML NEB INHALATION SCH (07:54)
[2020-04-25 08:14] VITALS: PULSE 100
--- NOTE | 2020-04-25 11:41 | PN ---
PROGRESS NOTE PULMONARY/CRITICAL CARE PROGRESS NOTE: DATE OF SERVICE: 04/25/2020 This is a 34-year-old female who was admitted back on the with an asthma exacerbation. I saw her in the office last week. Her asthma was out of control. We gave her Depo-Medrol and high doses of prednisone, bumped her Advair dose up and started Singulair. Despite all of that, the patient did not really improved. Earlier this week, we decided to go ahead and admit her to the hospital. Today she is feeling a bit better. Less short of breath. Still not back to normal. She is currently on appropriate medications including high-dose corticosteroids, long-acting beta agonist and inhaled corticosteroids, among other medications. PHYSICAL EXAMINATION: VITAL SIGNS: Current vital signs are reviewed. Temperature is 98, heart rate 92, respiratory rate 18, blood pressure 119/61, mean 80, room air saturation 93-96%. Appears in no acute distress. HEENT: Examination is grossly unremarkable. NECK: Supple. Full range of motion. No adenopathy. Neck veins are flat. CARDIOVASCULAR: Examination reveals regular rhythm rate. S1, S2 normal. No S3, S4, or murmur. LUNGS: Mostly clear. A few scattered mild rhonchi. Breath sounds are much improved. No wheezes. No crackles. ABDOMEN: Soft. EXTREMITIES are intact. No cyanosis, clubbing, or edema. SKIN: Without rash. NEUROLOGIC: Examination is nonfocal. LABS: Reviewed. Nothing new to report today. Microbiology is negative. No recent x-rays. Medications are reviewed as they are every day. ASSESSMENT: 1. Acute asthma exacerbation, much improved, currently on corticosteroids, long-acting beta agonist, leukotriene receptor antagonist, and inhaled corticosteroids. 2. , 16 weeks. PLAN: The patient might be considered for discharge today. We will leave that up to the primary. The patient will have an appointment in my office next week. I have asked her to continue with all the usual medications including updrafts, Singulair, Advair 500/50 one puff twice a day, and prednisone 40 mg a day until she sees me in the office. Additional recommendations and suggestions are forthcoming. Prognosis is guarded. MMODL / IJN: [id number] /
== END 2020-04-25 08:46 | disposition home or self-care (01) | DRG 832 ==
LOC: EC 09:02 → 1SOBS 10:05 → OBSVTOIN 04-24 10:49
PROVIDERS: ADMIT Internal Medicine; ATTEND Internal Medicine
DX: O99.512 Diseases of the respiratory system complicating pregnancy, second trimester (principal); J45.21 Mild intermittent asthma with (acute) exacerbation; O09.12 Supervision of pregnancy with history of ectopic pregnancy, second trimester; E87.6 Hypokalemia; O99.282 Endocrine, nutritional and metabolic diseases complicating pregnancy, second trimester; T38.0X5A Adverse effect of glucocorticoids and synthetic analogues, initial encounter; K21.9 Gastro-esophageal reflux disease without esophagitis; E03.9 Hypothyroidism, unspecified; O99.342 Other mental disorders complicating pregnancy, second trimester; F43.9 Reaction to severe stress, unspecified; O99.112 Other diseases of the blood and blood-forming organs and certain disorders involving the immune mechanism complicating pregnancy, second trimester; D72.829 Elevated white blood cell count, unspecified; R00.0 Tachycardia, unspecified; Z3A.16 16 weeks gestation of pregnancy; Z79.51 Long term (current) use of inhaled steroids; Z79.82 Long term (current) use of aspirin; Z79.890 Hormone replacement therapy; Z79.899 Other long term (current) drug therapy; Z98.891 History of uterine scar from previous surgery; Z87.59 Personal history of other complications of pregnancy, childbirth and the puerperium; Z82.49 Family history of ischemic heart disease and other diseases of the circulatory system
CPT/HCPCS: 36415; 71045; 80053; 81003; 83605; 85025; 85610; 85730; 93005; 94640; 96374; 99285

== ENCOUNTER → 2020-05-06 | Outpatient (CLI) | payer BC ==
--- NOTE | 2020-05-06 10:48 | USB ---
Reason for exam: clinical finding. Indicated problem(s): lump or thickening in the right breast. Physical Findings: Nurse Summary: Patient complains of right breast lump x 2 months, bilateral thickening (nurse mj). US Breast RT Right complete breast ultrasound includes all four quadrants, the retroareolar region and axilla. Finding demonstrates no cystic or solid lesion seen. These results were verbally communicated with the patient and result sheet given to the patient on 05/06/20. ASSESSMENT: Negative, BI-RAD 1 RECOMMENDATION: Routine screening mammogram of both breasts at age 39. Manage patient on a clinical basis.
== END | disposition home or self-care (01) ==
LOC: RADUSWWP 10:13
PROVIDERS: ATTEND Obstetrics & Gynecology
DX: N63.10 Unspecified lump in the right breast, unspecified quadrant (principal)

== ENCOUNTER → 2020-06-20 | Outpatient (CLI) | payer BC ==
[2020-06-20 22:50] LABS: Hemoglobin A1C 4.9 % (4.0-6.0)
== END | disposition home or self-care (01) ==
LOC: LABWHC1 11:40
PROVIDERS: ATTEND Obstetrics & Gynecology
DX: O99.280 Endocrine, nutritional and metabolic diseases complicating pregnancy, unspecified trimester (principal); Z31.430 Encounter of female for testing for genetic disease carrier status for procreative management; O28.5 Abnormal chromosomal and genetic finding on antenatal screening of mother
CPT/HCPCS: 36415; 81220; 83036; 84439; 84443

== ENCOUNTER → 2020-07-08 | Outpatient (CLI) | payer BC ==
[2020-07-08 10:28] LABS: HCT 33.6 % (34.0-46.0); HGB 11.5 gm/dL (11.4-16.0); MCH 34.3 pg (25.0-35.0); MCHC 34.1 g/dL (31.0-37.0); MCV 100.4 fL (80.0-100.0); Macrocytosis Slight; Mean Platelet Volume 7.8; Platelet Count 153 k/uL (150-450); RBC 3.35 m/uL (3.80-5.40); RDW 13.9 % (11.5-15.5); WBC 7.3 k/uL (3.8-10.6)
== END | disposition home or self-care (01) ==
LOC: LABWHC1 08:38
PROVIDERS: ATTEND Obstetrics & Gynecology
DX: Z34.82 Encounter for supervision of other normal pregnancy, second trimester (principal); Z3A.00 Weeks of gestation of pregnancy not specified
CPT/HCPCS: 36415; 82950; 85027

== ENCOUNTER 2020-07-19 07:28 | Inpatient (IN) | payer BC ==
--- NOTE | 2020-07-19 08:33 | US ---
EXAMINATION TYPE: US OB >= 14 wk fetus DATE OF EXAM: 07/19/2020 COMPARISON: None CLINICAL HISTORY: 34-year-old female Decreased Movement. Patient states decrease in movement x 1 day, Labor and Delivery Nurse unable to obtain heart tones with doppler TECHNIQUE: Transabdominal (TA) GESTATIONAL AGE / DATING Physician Established: (29 weeks/1 days) EDC: 10/03/2020 Dates by LMP: Unknown Dates by First Scan: No prior Dates by Current Scan: (28 weeks/1 days) EDC: 10/10/2020 FINDINGS: SUSingleUP: SingleAnteriorA: Anterior No Previa No Previa AFNormal1 cm Normal CERVICAL LENGTH (transabdominal: norm3.83.0cm): 3.8 cm BIOMETRY PRESVertexON: Ve7.4x BPD: 294 cm 39 weeks / 26.6ys HC: 2286 cm 68 weeks / 23.2ys AC: 2272 cm 47 weeks / 5.3ays FL: 283 cm 28 weeks / 2 days ESTIMATED WEIGHT 1163RAMS: 1163 grams ESTIMATED WEIGHT I2 LBS/O9: 2 lbs. 9 oz. WEIGHT PERCENTAGE BASED ON ESTABLISHE8.9ATES: 8.9% HNormal1.15 [id number]: 23 Normal HEART RATE: Heart rate not detected with color or pulsed doppler. Real-time villareal scale imaging shows no movement of the heart. RHYTHM: Abnormal Provided images shows one of the feet with only 4 toes. This may be projectional. I ESSION: 1. No cardiac activity by color or pulsed Doppler and no movement of the heart on real-time scanning. Established age 29 weeks 1 day and size by current scan at 28 weeks 1 day. Findings suggest a recent demise. Corroboration with declining beta-hCG is recommended. 2. Note that one of the images shows a foot with only 4 toes. Unclear if this is projectional.
[2020-07-19] MEDS ORDERED: LIDOCAINE 0.5% (PF) 5 MG/ML (50 ML SDV) SQ PRN (08:56)
[2020-07-19] MEDS ORDERED: METHYLERGONOVINE 0.2 MG/ML 1 ML AMP IM PRN (08:56)
[2020-07-19] MEDS ORDERED: TERBUTALINE 1 MG/ML VIAL SQ PRN (08:56)
[2020-07-19] MEDS ORDERED: OXYTOCIN 10 UNIT/ML 1 ML VIAL IM PRN (08:56)
[2020-07-19] MEDS ORDERED: OXYTOCIN 30 UNITS/500 ML NS 30 UNIT in SALINE 1 500ML.BAG IV SCH (09:00)
[2020-07-19] MEDS ORDERED: miSOPROStoL 25 MCG TAB VAGINAL ONE (09:00)
[2020-07-19] MEDS ORDERED: miSOPROStoL 25 MCG TAB VAGINAL STA (09:07)
--- NOTE | 2020-07-19 09:18 | P.HPOB ---
History of Present Illness H&P Date: 07/19/20 Chief Complaint: decrease movement; absent heart tones 34 year old presents at 29 weeks 1 day complaining of decreased movement since yesterday. 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 She was last seen 07/16 and echo was done and normal. When she presented today, we are unable to get heart tones. Ultrasound confirmed there was absent heart tones and the baby. Fluid is 18 cm, weight today is 2 lbs. 9 oz. in vertex. Patient had one ectopic and one section in the past. Her was a low transverse incision for an 8 pound baby after pushing for 2 hours. She's been followed with Dr. Castaneda and Dr. Srivastava from maternal medicine for the and the high risk issues noted above. She had a discussion with the patient and her . After discussion about the risks and benefits of C- section versus vaginal after she would like to attempt for this demise. I spoke with Dr. Srivastava from maternal medicine who recommends a vaginal after , he does know she has asthma and does not want me to use Hemabate. He recommended a low dose of Cytotec vaginally and then once the cervix is softened to use Pitocin. I did discuss the risks and benefits of using these medications on a uterus with the scar with and the patient. They expressed complete understanding and would like to afford this plan. Review of Systems All systems: negative Constitutional: Denies chills, Denies fever Eyes: denies blurred vision, denies pain Ears, nose, mouth and throat: Denies headache, Denies sore throat Cardiovascular: Denies chest pain, Denies shortness of breath Respiratory: Denies cough Gastrointestinal: Denies abdominal pain, Denies diarrhea, Denies nausea, Denies vomiting Genitourinary: Denies dysuria, Denies hematuria Musculoskeletal: Denies myalgias Integumentary: Denies pruritus, Denies rash Neurological: Denies numbness, Denies weakness Psychiatric: Denies anxiety, Denies depression Endocrine: Denies fatigue, Denies weight change Past Medical History Past Medical History: Asthma, GERD/Reflux, Thyroid Disorder History of Any Multi-Drug Resistant Organisms: None Reported Past Surgical History: Section Additional Past Surgical History / Comment(s): [place] teeth removal 2003 Past Anesthesia/Blood Transfusion Reactions: No Reported Reaction Past Psychological History: No Psychological Hx Reported Additional Psychological History / Comment(s): Pt resides with her spouse and 3 year old son. She is independent. Smoking Status: Never smoker Past Alcohol Use History: Occasional Past Drug Use History: None Reported - Past Family History Father Family Medical History: Hypertension Mother Family Medical History: No Reported History Additional Family Medical History / Comment(s): Mother is healthy Medications and Allergies Home Medications Medication Instructions Recorded Confirmed Type Albuterol Nebulized [Ventolin 2.5 mg INHALATION RT-QID PRN 04/21/18 07/19/20 History Nebulized] Pnv,Calcium 72/Iron/Folic Acid 1 tab PO DAILY 04/23/18 07/19/20 History [ Plus Tablet] Aspirin EC [Ecotrin Low Dose] 81 mg PO DAILY 04/22/20 07/19/20 History Levothyroxine Sodium [Synthroid] 25 mcg PO DAILY 04/22/20 07/19/20 History Montelukast [Singulair] 10 mg PO HS 04/22/20 07/19/20 History Famotidine [Pepcid] 20 mg PO DAILY 07/19/20 07/19/20 History Allergies Allergy/AdvReac Type Severity Reaction Status Date / Time No Known Allergies Allergy Verified 04/22/20 10:28 Exam Osteopathic Statement: *. No significant issues noted on an osteopathic structural exam other than those noted in the History and Physical/Consult. Vital Signs Temp Pulse Resp BP Pulse Ox 07/19/20 08:33 98.2 F 116 H 18 125/78 97 Intake and Output 07/18/20 07/19/20 07/19/20 22:59 06:59 14:59 Other: Weight 66.678 kg Heart: Regular rate and rhythm Lungs: Clear to auscultation bilaterally Abdomen: Soft, nontender Extremities: Negative Homans sign Cervix: Fingertip, thick, soft, -3 station. Assessment and Plan (1) demise, greater than 22 weeks, antepartum Current Visit: Yes Status: Acute Code(s): O36.4XX0 - MATERNAL CARE FOR INTRAUTERINE , NOT APPLICABLE OR UNSP SNOMED Code(s): 305110731 Plan: 1. Low dose of Cytotec vaginally and then Pitocin for induction of labor. 2. Anticipate normal vaginal delivery 3. Her closely for bleeding or increased pain
[2020-07-19 09:38] LABS: Basophils % (A) 1 %; Eosinophils # (A) 0.1 k/uL (0-0.7); Eosinophils % (A) 1 %; HCT 34.9 % (34.0-46.0); HGB 12.3 gm/dL (11.4-16.0); Lymphocytes # (A) 1.4 k/uL (1.0-4.8); Lymphocytes % (A) 20 %; MCH 35.2 pg (25.0-35.0); MCHC 35.3 g/dL (31.0-37.0); MCV 99.7 fL (80.0-100.0); Mean Platelet Volume 7.7; Monocytes # (A) 0.4 k/uL (0-1.0); Monocytes % (A) 5 %; Neutrophils # (A) 4.9 k/uL (1.3-7.7); Neutrophils % (A) 71 %; Platelet Count 160 k/uL (150-450); RDW 13.8 % (11.5-15.5)
[2020-07-19] MEDS: LACTATED RINGERS 1,000 ML IV SCH ×2 (09:43→21:38)
[2020-07-19 10:11] LABS: INR 0.9 (<1.2); Prothrombin Time 9.6 sec (9.0-12.0)
[2020-07-19 10:24] LABS: Partial Thromboplastin Time 21.6 sec (22.0-30.0)
[2020-07-19] MEDS ORDERED: BUTORPHANOL 1 MG/ML 1 ML VIAL IV PRN (13:05)
[2020-07-19] MEDS ORDERED: ACETAMINOPHEN TAB 325 MG TAB PO STA (21:12)
[2020-07-20] MEDS ORDERED: SODIUM CHLORIDE 0.9% 100 ML BAG ONE (01:54)
[2020-07-20] MEDS: LACTATED RINGERS 1,000 ML IV SCH (01:54)
[2020-07-20] MEDS ORDERED: ROPIVACAINE 5MG/ML 20ML VIAL ONE (01:54)
[2020-07-20] MEDS ORDERED: fentaNYL (PF) 50 MCG/ML 5 ML AMP ONE (01:54)
[2020-07-20] MEDS ORDERED: ACETAMINOPHEN TAB 325 MG TAB PO PRN (05:05)
[2020-07-20] MEDS ORDERED: SIMETHICONE 80 MG CHEWABLE PO PRN (05:05)
[2020-07-20] MEDS ORDERED: diphenhydrAMINE 25 MG CAP PO PRN (05:05)
[2020-07-20] MEDS ORDERED: HYDROCORTISONE 2.5% RECTAL CREAM 30 GM TUBE RECTAL PRN (05:05)
[2020-07-20] MEDS ORDERED: LANOLIN CREAM 5 GM TUBE TOPICAL PRN (05:05)
[2020-07-20] MEDS ORDERED: IBUPROFEN 600 MG TAB PO PRN (05:05)
[2020-07-20] MEDS ORDERED: ZOLPIDEM 5 MG TAB PO PRN (05:05)
[2020-07-20] MEDS ORDERED: diphenhydrAMINE 50 MG/ML 1 ML VIAL IVP PRN ×2 (05:05)
[2020-07-20] MEDS ORDERED: diphenhydrAMINE 50 MG CAP PO PRN (05:05)
[2020-07-20] MEDS ORDERED: BENZOCAINE/MENTHOL SPRAY 1 GM/SPRAY AEROSOL TOPICAL PRN (05:05)
[2020-07-20] MEDS ORDERED: OXYTOCIN 20 UNITS/1000 ML NS 1,000 ML IV SCH (05:15)
--- NOTE | 2020-07-20 05:28 | P.MSEPDOC ---
Presenting Problems - Arrival Data Date of Arrival on Unit: 07/19/20 Time of Arrival on Unit: 07:28 Mode of Transport: Ambulatory - Complaint OB-Reason for Admission/Chief Complaint: Decreased Movement Medical History - Information : 3 Para: 1 Term: 1 : 0 Abortions: Spontaneous or Elective: 1 Number of Living Children: 1 - Gestational Age Gestational Age by MOR (wks/days): 29 Weeks and 1 Days - History Complications: Prior Review of Systems - Review of Systems Constitutional: No problems Breast: No problems ENT: No problems Cardiovascular: No problems Respiratory: No problems Gastrointestinal: No problems Genitourinary: No problems Musculoskeletal: No problems Neurological: No problems Skin: No problems Vital Signs - Temperature Temperature: 98.2 F Temperature Source: Temporal Artery Scan - Pulse Right Pulse Rate: 116 Pulse Assessment Method: Automatic Cuff - Respirations Respiratory Rate: 18 Oxygen Delivery Method: Room Air O2 Sat by Pulse Oximetry: 97 - Blood Pressure Right Arm Blood Pressure: 125/78 Blood Pressure Mean: 93 Blood Pressure Source: Automatic Cuff Medical Screen Scoring (Pre) - Cervical Exam Dilation: Exam Deferred Effacement: Exam Deferred Membranes: Intact - Uterine Contractions Frequency: N/A - Maternal Vital Signs Maternal Temperature: N/A Maternal Blood Pressure: N/A Signs of Preeclampsia: N/A Maternal Respirations: N/A - Maternal Trauma Maternal Trauma: N/A - Assessment - Baby A NST: Unable to detect FHT's = 10 Position: N/A Station: N/A - Total Score - Baby A Total Score - Baby A: 10 - Total Score - Baby B Total Score - Baby B: 0 - Total Score - Baby C Total Score - Baby C: 0 - Level of Risk - Baby A Level of Risk - Baby A: High (10+) - Level of Risk - Baby B Level of Risk - Baby B: Low (0-5) - Level of Risk - Baby C Level of Risk - Baby C: Low (0-5) Physician Notification (Pre) - Physician Notified Physician Notified Date: 07/19/20 Physician Notified Time: 08:10 New Order Received: Yes - Notification Comment Comment: RN spoke with Dr. Schroeder regarding pt's complaint today of decreased movement. Unable to trace FHR, order received to obtain OB US with BPP and estimated weight. Post US, Dr. Schroeder called and reported on demise. Dr. Schroeder coming in to speak with patient and her spouse. RN to set up a room for patient. Disposition - Disposition OB Disposition: Admit I agree with the RN Medical Screening Exam: Yes Risk & Benefit of care provided described in d/c instruction: Yes Diagnosis: MATERNAL CARE FOR INTRAUTERINE , NOT APPLICABLE OR UNSP
[2020-07-20 05:48] VITALS: RESP 16
[2020-07-20] MEDS ORDERED: SENNOSIDES-DOCUSATE SODIUM 1 EACH TAB PO SCH (08:00)
--- NOTE | 2020-07-20 08:56 | P.PROBDLV ---
Vaginal Delivery Note - . Vaginal Delivery Note: 34-year-old presented at 29 weeks and 1 day to triage with absent heart tones. She had not felt the baby move since yesterday afternoon. Diagnosis of intrauterine by ultrasound, GAGE 18 cm. Baby is vertex. Patient had a previous section for arrest of descent during pushing for an 8 pound baby. This baby is estimated to have pounds. After discussion with maternal medicine the decision was made to deliver her vaginally using Cytotec and then Pitocin. Her cervix was fingertip thick and -3 station. 50 g of Cytotec was placed vaginally at 9:30 AM. 4 hours later her cervix was checked and she was 1 cm dilated thick and -3 station. Pitocin was started. Her water did break and around 00 49 and clear fluid was noted. Her cervix was completely dilated at 4:30 AM. She pushed, and delivered a nonviable female at 443 over intact perineum under epidural anesthesia. Head delivered OA, anterior shoulder delivered gentle downward guidance of the posterior shoulder and rest of body. Nose and mouth bulb suctioned, cord clamped and cut, infant placed mother's abdomen. Apgars 0, 0, weight 2 lbs. 7 oz. Placenta delivered spontaneously, intact with three-vessel cord at 444. Vagina, cervix, and perineum were inspected. First-degree midline laceration was repaired with 3-0 Vicryl. Estimated blood loss 200 mL.
[2020-07-20 12:26] VITALS: BP 119/72; PULSE 87; TEMP 97.6
--- NOTE | 2020-07-20 18:41 | P.DS ---
Providers Date of admission: 07/19/20 08:15 Expected date of discharge: 07/20/20 Attending physician: Patric Castaneda Primary care physician: Stated None - Discharge Diagnosis(es) (1) demise, greater than 22 weeks, antepartum Status: Resolved (2) demise > 22 weeks, delivered, current hospitalization Status: Acute Hospital Course: 34-year-old presented at 29 weeks and 1 day with an intrauterine . She had felt the baby move until the evening of 07/18/2020. She presented in the morning of 07/19/2020 with absent heart tones confirmed by ultrasound. She underwent a 2-stage induction of labor. After conferring with maternal- medicine I did use 50 g of Cytotec to soften the cervix and then Pitocin for induction. She had a underwent a vaginal after for a 2 lbs. 7 oz. nonviable baby girl. Patient was stable after labor. Her lochia was minimal and cramping tolerable with Motrin. She does have a good support system at home. She has her and both parents who are here with her today. She was discharged home day 0 in stable condition to follow-up with Dr. Castaneda within 2 weeks. Patient Condition at Discharge: Good Plan - Discharge Summary New Discharge Prescriptions: No Action Albuterol Nebulized [Ventolin Nebulized] 2.5 mg INHALATION RT-QID PRN PRN Reason: Shortness Of Breath Pnv,Calcium 72/Iron/Folic Acid [ Plus Tablet] 1 tab PO DAILY Levothyroxine Sodium [Synthroid] 25 mcg PO DAILY Aspirin EC [Ecotrin Low Dose] 81 mg PO DAILY Montelukast [Singulair] 10 mg PO HS Famotidine [Pepcid] 20 mg PO DAILY Discharge Medication List Albuterol Nebulized [Ventolin Nebulized] 2.5 mg INHALATION RT-QID PRN 04/21/18 [History] Pnv,Calcium 72/Iron/Folic Acid [ Plus Tablet] 1 tab PO DAILY 04/23/18 [History] Aspirin EC [Ecotrin Low Dose] 81 mg PO DAILY 04/22/20 [History] Levothyroxine Sodium [Synthroid] 25 mcg PO DAILY 04/22/20 [History] Montelukast [Singulair] 10 mg PO HS 04/22/20 [History] Famotidine [Pepcid] 20 mg PO DAILY 07/19/20 [History] Follow up Appointment(s)/Referral(s): Patric Castaneda DO [Doctor of Osteopathic Medicine] - 2 Weeks Discharge Disposition: HOME SELF-CARE
[2020-07-20] MEDS ORDERED: SYMBICORT 160-4.5 MCG INHALER INHALATION SCH (20:00)
== END 2020-07-20 17:10 | disposition home or self-care (01) | DRG 807 ==
LOC: FBPOP 07:28 → 4FBP 08:15
PROVIDERS: ADMIT Obstetrics & Gynecology; ATTEND Obstetrics & Gynecology
PROC: 3E033VJ Introduction of Other Hormone into Peripheral Vein, Percutaneous Approach (ICD-10-PCS; 2020-07-19)
PROC: 3E0P7VZ Introduction of Hormone into Female Reproductive, Via Natural or Artificial Opening (ICD-10-PCS; 2020-07-19)
PROC: 00HU33Z Insertion of Infusion Device into Spinal Canal, Percutaneous Approach (ICD-10-PCS; 2020-07-19)
PROC: 3E0R3BZ Introduction of Anesthetic Agent into Spinal Canal, Percutaneous Approach (ICD-10-PCS; 2020-07-19)
PROC: 0HQ9XZZ Repair Perineum Skin, External Approach (ICD-10-PCS; principal; 2020-07-20)
PROC: 10E0XZZ Delivery of Products of Conception, External Approach (ICD-10-PCS; principal; 2020-07-20)
DX: O36.4XX0 Maternal care for intrauterine death, not applicable or unspecified (principal); Z37.1 Single stillbirth; E07.9 Disorder of thyroid, unspecified; O70.0 First degree perineal laceration during delivery; O34.211 Maternal care for low transverse scar from previous cesarean delivery; Z3A.29 29 weeks gestation of pregnancy; O43.129 Velamentous insertion of umbilical cord, unspecified trimester; O99.284 Endocrine, nutritional and metabolic diseases complicating childbirth; J45.909 Unspecified asthma, uncomplicated; O99.52 Diseases of the respiratory system complicating childbirth; O99.62 Diseases of the digestive system complicating childbirth; K21.9 Gastro-esophageal reflux disease without esophagitis; Z98.818 Other dental procedure status; Z79.82 Long term (current) use of aspirin; Z79.890 Hormone replacement therapy; Z79.899 Other long term (current) drug therapy; Z82.49 Family history of ischemic heart disease and other diseases of the circulatory system
CPT/HCPCS: 76805; 85025; 85610; 85730; 86850; 86900; 86901; 88307; 88313; 99213

== ENCOUNTER → 2020-08-25 | Outpatient (CLI) | payer BC ==
[2020-08-26 02:39] LABS: Birch IgE 4.65 kU/L
[2020-08-26 02:43] LABS: Codfish IgE <0.10 kU/L; Egg White IgE <0.10 kU/L; Peanut IgE <0.10 kU/L
[2020-08-26 02:44] LABS: Clam IgE <0.10 kU/L; Shrimp IgE <0.10 kU/L; Soybean IgE <0.10 kU/L; Walnut IgE (Food) <0.10 kU/L
[2020-08-26 02:45] LABS: Scallop IgE <0.10 kU/L
[2020-08-26 06:41] LABS: Alternaria alternata IgE 0.52 kU/L; Cat Epith & Dander IgE 0.26 kU/L; Maple (Box Elder) IgE <0.10 kU/L
[2020-08-26 06:42] LABS: Aspergillus fumagatus IgE <0.10 kU/L; Cladosporian herbarum IgE <0.10 kU/L; Cockroach IgE <0.10 kU/L
[2020-08-26 06:43] LABS: Dog Dander IgE 0.43 kU/L
[2020-08-26 06:44] LABS: Elm IgE <0.10 kU/L
[2020-08-26 06:46] LABS: Oak IgE 1.13 kU/L
[2020-08-26 06:47] LABS: Dermato. farinae IgE 0.42 kU/L
[2020-08-26 06:48] LABS: Red Top (Bentgrass) IgE 0.92 kU/L
[2020-08-26 07:04] LABS: Immunoglobulin E 8.31 IU/mL (0.00-114.00)
== END | disposition home or self-care (01) ==
LOC: LABWHC1 14:19
PROVIDERS: ATTEND Internal Medicine Critical Care Medicine
DX: J45.909 Unspecified asthma, uncomplicated (principal); T78.49XA Other allergy, initial encounter
CPT/HCPCS: 36415; 82785; 85008; 86003

== ENCOUNTER → 2020-09-12 | Outpatient (CLI) | payer BC ==
[2020-09-12 15:23] LABS: T4, Free (Free Thyroxine) 1.1 ng/dL (0.80-1.80)
== END | disposition home or self-care (01) ==
LOC: LABWHC1 09:19
PROVIDERS: ATTEND Physician Assistant
DX: E03.9 Hypothyroidism, unspecified (principal)
CPT/HCPCS: 36415; 84439; 84443

== ENCOUNTER → 2020-11-24 | Outpatient (CLI) | payer BC ==
[2020-11-24 17:31] LABS: Basophils # (A) 0.04 X 10*3/uL (0.00-0.10); Eosinophils # (A) 0.11 X 10*3/uL (0.04-0.35); Eosinophils % (A) 2.8 %; HCT 42.7 % (37.2-46.3); HGB 14.1 g/dL (12.0-15.0); Lymphocytes # (A) 1.67 X 10*3/uL (0.90-5.00); Lymphocytes % (A) 42.3 %; MCH 32.5 pg (27.0-32.0); MCV 98.4 fL (80.0-97.0); Mean Platelet Volume 12.3 fL (9.5-12.2); Monocytes # (A) 0.32 X 10*3/uL (0.20-1.00); Monocytes % (A) 8.1 %; Neutrophils % (A) 45.5 %; Platelet Count 204 X 10*3/uL (140-440); RBC 4.34 X 10*6/uL (4.10-5.20); WBC 3.95 X 10*3/uL (4.50-10.00)
== END | disposition home or self-care (01) ==
LOC: LABWHC1 07:45
PROVIDERS: ATTEND Internal Medicine Critical Care Medicine
DX: J45.50 Severe persistent asthma, uncomplicated (principal)
CPT/HCPCS: 36415; 82533; 82785; 85025

== ENCOUNTER → 2021-02-17 | Outpatient (CLI) | payer BC | END | disposition home or self-care (01) | LOC: LABWHC1 07:32 | PROVIDERS: ATTEND Internal Medicine Critical Care Medicine | DX: J45.50 Severe persistent asthma, uncomplicated (principal) | CPT/HCPCS: 36415; 82533 ==

== ENCOUNTER → 2021-03-03 | Outpatient (CLI) | payer BC | END | disposition home or self-care (01) | LOC: LABWHC1 15:23 | PROVIDERS: ATTEND Obstetrics & Gynecology | DX: N92.6 Irregular menstruation, unspecified (principal) | CPT/HCPCS: 36415; 84702 ==

== ENCOUNTER → 2021-03-05 | Outpatient (CLI) | payer BC | END | disposition home or self-care (01) | LOC: LABWHC1 15:33 | PROVIDERS: ATTEND Obstetrics & Gynecology | DX: N92.6 Irregular menstruation, unspecified (principal) | CPT/HCPCS: 36415; 84702 ==

== ENCOUNTER → 2021-03-27 | Outpatient (CLI) | payer BC ==
[2021-03-27 18:26] LABS: HCT 40.2 % (37.2-46.3); HGB 13.5 g/dL (12.0-15.0); MCH 32.8 pg (27.0-32.0); MCHC 33.6 g/dL (32.0-37.0); MCV 97.8 fL (80.0-97.0); Mean Platelet Volume 12.4 fL (9.5-12.2); Platelet Count 198 X 10*3/uL (140-440); RBC 4.11 X 10*6/uL (4.10-5.20); RDW 11.7 % (11.5-14.5); WBC 6.18 X 10*3/uL (4.50-10.00)
[2021-03-27 22:33] LABS: HIV 2 AB Non-Reactive (Non-Reactive); HIV AB P24 Non-Reactive (Non-Reactive); HIV P24 AG Non-Reactive (Non-Reactive)
[2021-03-28 16:43] LABS: T3, Uptake 27 % (23-37)
[2021-03-28 16:52] LABS: African American GFR (CKD) 129.2 (60.0-200.0); Non-African American GFR(CKD) 111.5 (60.0-200.0)
[2021-03-28 17:00] LABS: T4, Free (Free Thyroxine) 1.2 ng/dL (0.80-1.80)
[2021-03-28 22:23] LABS: Hepatitis B Surface Antigen Non-Reactive (Non-Reactive)
[2021-03-31 15:40] LABS: C. trachomatis,PCR Negative (Neg,Equiv); Chlamydia trachomatis Source Urine; N. gonorrhoeae,PCR Negative (Neg,Equiv); Neisseria Source Urine
== END | disposition home or self-care (01) ==
LOC: LABWHC1 10:06
PROVIDERS: ATTEND Obstetrics & Gynecology
DX: Z01.84 Encounter for antibody response examination (principal)
CPT/HCPCS: 36415; 82565; 82947; 84439; 84443; 84479; 85027; 86762; 86769; 86780; 86850; 86900; 86901; 87340; 87390; 87491; 87591

== ENCOUNTER 2021-09-06 07:54 | Outpatient (CLI) | payer BC ==
--- NOTE | 2021-09-06 09:34 | US ---
EXAMINATION TYPE: US OB BPP wo non-stress DATE OF EXAM: 09/06/2021 COMPARISON: NONE CLINICAL HISTORY: decreased movement, non reactive NST. Decreased movement EXAM PERFORMED: Transabdominal (TA) BPP PARAMETERS: PRESENTATION: Vertex HEART RATE: 132 bpm RHYTHM: Normal GAGE: 8.8 cm DIAPHRAGM IMAGED: Yes BPP SCORIN. Breathin (1 episode of breathing of 30 second duration in 30 minutes of scanning time) 2. Movement: 2 (at least 3 discrete body movements in 30 minutes) 3. Tone: 2 (1 episode of active flexion/extension of limb) 4. GAGE: 2 (GAGE index > 5cm) TOTAL SCORE: 6 / [address] Schroeder at time of exam IMPRESSIONS: 1. Biophysical profile scoring 6 out of 8 points. No points were scored for episodes of breathing dur ing this exam.
[2021-09-06 10:13] VITALS: BP 139/81; PULSE 111; RESP 16; TEMP 98
--- NOTE | 2021-09-16 07:23 | P.MSEPDOC ---
Presenting Problems - Arrival Data Date of Arrival on Unit: 09/06/21 Time of Arrival on Unit: 07:58 Mode of Transport: Ambulatory - Complaint OB-Reason for Admission/Chief Complaint: Decreased Movement Medical History - Information : 4 Para: 1 Number of Living Children: 1 - Gestational Age Gestational Age by MOR (wks/days): 32 Weeks and 2 Days - History Complications: Prior Review of Systems - Review of Systems Constitutional: No problems Breast: No problems ENT: No problems Cardiovascular: No problems Respiratory: No problems Gastrointestinal: No problems Genitourinary: No problems Musculoskeletal: No problems Neurological: No problems Skin: No problems Vital Signs - Temperature Temperature: 98.0 F Temperature Source: Temporal Artery Scan - Pulse Right Sitting Apical Pulse Rate: 111 Pulse Assessment Method: Auscultation - Respirations Respiratory Rate: 16 Oxygen Delivery Method: Room Air O2 Sat by Pulse Oximetry: 97 - Blood Pressure Right Arm Sitting Blood Pressure: 139/81 Blood Pressure Mean: 100 Blood Pressure Source: Automatic Cuff Medical Screen Scoring - Assessment - Baby A Baseline FHR: 135 Heart Rate - NICHD Category: Category I (Normal) NST: Reactive Physician Notification - Physician Notified Physician Notified Date: 09/06/21 Physician Notified Time: 09:58 Physician: Angelic Schroeder New Order Received: Yes (discharge) Maternal Triage Index - Maternal Triage Index Presenting for scheduled procedure w/no complaint: No - Stat/Priority 1 Stat Priority 1: No - Urgent/Priority 2 Urgent Priority 2: Yes Provider Notified: Angelic Schroeder Provider Notified Time: 08:10 Criteria Met for Priority 2: decreased movement Disposition - Disposition OB Disposition: Discharge to home Discharge Date: 09/06/21 Discharge Time: 10:00 I agree with the RN Medical Screening Exam: Yes Case reviewed; plan agreed upon as documented in EMR&OBIX.: Yes Diagnosis: DECREASED MOVEMENTS, THIRD TRIMESTER, FETUS 1
== END 2021-09-06 10:00 | disposition home or self-care (01) ==
LOC: FBPOP 07:54
PROVIDERS: ATTEND Obstetrics & Gynecology
DX: O36.8130 Decreased fetal movements, third trimester, not applicable or unspecified (principal); Z3A.32 32 weeks gestation of pregnancy
CPT/HCPCS: 59025; 76819; 99213

== ENCOUNTER 2021-10-09 05:57 | Inpatient (IN) | payer BC ==
--- NOTE | 2021-10-08 07:39 | P.HPOB ---
History of Present Illness H&P Date: 10/08/21 Chief Complaint: Repeat section and family planning This patient is a pleasant 36-year-old 4 para 2 living 1 female estimated date of confinement 10/30/2021 estimated gestational age 37 weeks who presents to labor and delivery for elective repeat section and also requesting permanent sterilization. Patient's is complicated by a history of previous demise at 29 weeks. Evaluation after that delivery did show that her baby had to no atresia and polyhydramnios however exact etiology was unknown. This patient did start her initial care with Dr. Castaneda and transferred to ar at approximately 28 weeks. Patient has also been under close care with maternal- medicine. Level III ultrasound this shown normal anatomy however is a questionable right aortic arch with vascular ring, however they indicated there was no concerns for delivery here. Patient also was giving large dose of steroids at approximately 31 weeks by her director report and this subsequently did result in some decreased amniotic fluid that appeared to be transient. She is watched closely with biophysical profiles and nonstress tests. After discussion with maternal- medicine and the patient we've elected to proceed with delivery right at 37 weeks due to the patient's past obstetrical history and current clinical picture. Patient did have a section for her first baby, but for her 29 weeks stillborn however this was a bit complicated as well and therefore I have recommended to proceed with repeat section at this time. Patient was completely agreeable. Patient also requests permanent sterilization at this time. Review of Systems Genitourinary: Reports Menstruation: Reports amenorrhea Past Medical History Past Medical History: Asthma, GERD/Reflux, Thyroid Disorder Additional Past Medical History / Comment(s): Patient's obstetrical history is significant for for cephalopelvic dystocia with her first , an ectopic , and a for a 29 week demise. History of Any Multi-Drug Resistant Organisms: None Reported Past Surgical History: Section Additional Past Surgical History / Comment(s): [place] teeth removal 2004 Past Anesthesia/Blood Transfusion Reactions: No Reported Reaction Past Psychological History: No Psychological Hx Reported Additional Psychological History / Comment(s): Pt resides with her spouse and 3 year old son. She is independent. Smoking Status: Never smoker Past Alcohol Use History: None Reported Past Drug Use History: None Reported - Past Family History Father Family Medical History: Hypertension Mother Family Medical History: No Reported History Additional Family Medical History / Comment(s): Mother is healthy Medications and Allergies Home Medications Medication Instructions Recorded Confirmed Type Albuterol Nebulized [Ventolin 2.5 mg INHALATION RT-QID PRN 04/21/18 09/06/21 History Nebulized] Pnv,Calcium 72/Iron/Folic Acid 1 tab PO DAILY 04/23/18 09/06/21 History [ Plus Tablet] Aspirin EC [Ecotrin Low Dose] 81 mg PO DAILY 04/22/20 09/06/21 History Montelukast [Singulair] 10 mg PO HS 04/22/20 09/06/21 History Famotidine [Pepcid] 20 mg PO DAILY 07/19/20 09/06/21 History Allergies Allergy/AdvReac Type Severity Reaction Status Date / Time No Known Allergies Allergy Verified 09/06/21 08:22 Exam - OBG Physical Exam Abdomen: bowel sounds normal, no diffuse tenderness, no bruit present, no guarding noted, no hepatomegaly, no splenomegaly, no mass Vulva: both: normal Vagina: normal moisture, no discharge Cervix: no lesion, no discharge Uterus: enlarged (Fundal height is 37 cm) Results labs show she is O positive, rubella immune, RPR nonreactive, hepatitis B negative, Glucola was normal, group B strep was negative, level III ultrasound was normal however cardiac echo shows a possible right aortic arch with possible vascular ring. Assessment and Plan Assessment: This is a pleasant 36-year-old 4 para 2 living 1 female 37-0/7 weeks gestation with history of previous stillborn at 29 weeks, history of previous section, and desires family planning. Fetus also has known possible right aortic arch with questionable vascular ring. Patient also has been exposed to prolonged steroid use during this due to an asthma exacerbation. Plan is repeat low transverse section, bilateral partial salpingectomy, and stress dose steroids. I have had a long discussion with Vani about this procedure and risks including risks of infection, bleeding, possible injury bowel, bladder, vessels, and/or other organs. All the patient's questions have been answered and a written consent is obtained. (1) 37 weeks gestation of Status: Acute Code(s): Z3A.37 - 37 WEEKS GESTATION OF SNOMED Code(s): 69651937 (2) Previous delivery affecting Status: Acute Code(s): O34.219 - MATERNAL CARE FOR UNSP TYPE SCAR FROM PREVIOUS DEL SNOMED Code(s): 680677478 (3) Family planning Status: Acute Code(s): Z30.09 - ENCOUNTER FOR OTH GENERAL CNSL AND ADVICE ON CONTRACEPTION SNOMED Code(s): 725431829 (4) History of stillbirth Status: Acute Code(s): Z87.59 - PERSONAL HISTORY OF COMP OF PREG, CHLDBRTH AND THE PUERP SNOMED Code(s): 349649150 (5) Chronic use of steroids Status: Acute Code(s): BWH5134 - SNOMED Code(s): 395979926 (6) 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
[2021-10-09] MEDS ORDERED: CITRIC ACID-SODIUM CITRATE 15 ML CUP PO ONE (06:01)
[2021-10-09] MEDS ORDERED: LACTATED RINGERS 1,000 ML IV SCH (06:01)
[2021-10-09] MEDS ORDERED: LACTATED RINGERS 1,000 ML IV ONE (06:01)
[2021-10-09] MEDS ORDERED: methylPREDNISolone SOD SUCCI 125 MG/2 ML VIAL IV STA (06:01)
[2021-10-09 06:58] LABS: HCT 35.8 % (34.0-46.0); HGB 11.7 gm/dL (11.4-16.0); MCH 33.4 pg (25.0-35.0); MCHC 32.7 g/dL (31.0-37.0); MCV 102.1 fL (80.0-100.0); Macrocytosis Slight; Mean Platelet Volume 9.3; Platelet Count 203 k/uL (150-450); RBC 3.51 m/uL (3.80-5.40); WBC 4.9 k/uL (3.8-10.6)
[2021-10-09] MEDS ORDERED: MORPHINE SULFATE (PF) 0.3 MG/0.3 ML SYR ONE (07:55)
[2021-10-09] MEDS ORDERED: NALBUPHINE 10 MG/ML (1 ML AMP) ONE (07:55)
[2021-10-09] MEDS ORDERED: OXYTOCIN 30 UNITS/500 ML NS BAG IV ONE (07:55)
[2021-10-09] MEDS ORDERED: ONDANSETRON 4 MG/2 ML VIAL ONE (07:55)
[2021-10-09] MEDS ORDERED: PHENYLEPHRINE-0.9% NACL SYG 1,000 MCG/10 ML SYRINGE ONE (07:55)
[2021-10-09] MEDS ORDERED: KETOROLAC 15 MG/ML 1 ML VIAL ONE (07:55)
[2021-10-09 08:03] LABS: Basophils # (M) 0.05 k/uL (0-0.2); Lymphocytes # (M) 1.72 k/uL (1.0-4.8); Monocytes # (M) 0.29 k/uL (0-1.0); Neutrophils # (M) 2.84 k/uL (1.3-7.7); Neutrophils % (M) 58 %; Nucleated Red Blood Cells 0 /100 WBC (0-0); Total Cells Counted 100
--- NOTE | 2021-10-09 08:47 | P.OP ---
Date of Procedure: 10/09/21 Preoperative Diagnosis: #1: 37-0/7 week intrauterine . #2: Previous section desires repeat. #3: Multi parity desires permanent sterilization. #4: History of previous stillborn. 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 Brief summary is a pleasant 36-year-old 4 para 1 female 37-0/7 weeks gestation admitted to labor and delivery for elective repeat section and also requesting permanent sterilization. Patient is a history of previous stillborn and this baby was noted to have a right aortic arch with questionable vascular ring. Per [facility] recommendations plan to proceed with delivery at 37 weeks. Patient's also had some high-dose steroids during her secondary to asthma, therefore is given a dose of Solu-Medrol. Patient understands a tubal ligation is permanent and there is a risk of failure less than 5 per thousand procedures done. She also understands that surgery itself and apparently has risks including risks of infection, bleeding, possible injury bowel, bladder, vessels, and/or other organs. All the patient's questions are answered written consent is obtained. Operative Findings: This is a vigorous viable male infant Apgars 9 and 9 delivery time is 0809 hrs. Infant had a nuchal cord 1. Infant appeared grossly normal. Uterus, tubes, ovaries appear grossly normal. Description of Procedure: This patient has a [place] catheter placed to straight drain. She is subsequently taken to the operating room where she sat up and spinal anesthetic is administered without incident. With an adequate level of anesthesia she has an abdominal prep and drape. Scalpels taken the previous Pfannenstiel incision is incised. A second scalpel is taken down the fascia the fascia scored with a knife. Fascial incision extended bilaterally using the Jose scissors. Fascia is dissected off the rectus muscles sharply. Rectus muscles are peritoneum identified and entered sharply. Peritoneal incision extended superior and inferior without difficulty. Bladder blade is placed. Bladder peritoneum was taken sharply off the lower uterine segment. Scalpels and taken low transverse uterine incision is then made. Using a hemostat I enter the uterine cavity bluntly. There is loss of clear fluid. With fundal pressure we then have delivery of the infant's head. There is a loop of cord presenting in front of the head and there is a nuchal cord 1. This is reduced. Mouth and nares are bulb suctioned. With more fundal pressure with delivery and rest this infant's body. This is a vigorous viable male infant Apgars are 9 and 9 delivery time was 0809 hrs. After delivery of the , the placenta is manually extracted intact. The uterus is externalized. The uterine incision then demarcated with Cason clamps. Uterus is then closed using 0 Vicryl running locked fashion 2 layers. Excellent hemostasis is noted. Bladder peritoneum was then closed using a 3-0 Vicryl. Then turned my attention of left fallopian tube approximately 4 cm from the cornual insertion a small window made to the mesial salpinx with Bovie cautery. Using a 2-0 silk I doubly ligate a 2 cm segment of the left fallopian tube. This is excised and handed off to pathology and the tubal ends are cauterized. Similar technique is done on the right side with similar results. This done excess fluid is removed from the abdomen and pelvis. Ears placed back into the abdomen. Final inspection of the incision and a tubes shows a to be hemostatic. The parietal peritoneum is identified and closed using 0 Vicryl running fashion. Rectus muscles reapproximated in 0 Vicryl interrupted fashion. Fascia is then closed using 0 PDS. Fascial incision is intact and hemostatic. Subcutaneous tissues and closed using a 3-0 Vicryl. Skin is and closed using julienne. All counts are correct 3. There are no complications. Patient's taken recovery is satisfactory condition to her birthing room.
[2021-10-09] MEDS ORDERED: ZOLPIDEM 5 MG TAB PO PRN (09:07)
[2021-10-09] MEDS ORDERED: OXYTOCIN 30 UNITS/500 ML NS 30 UNIT in SALINE 1 500ML.BAG IV SCH (09:07)
[2021-10-09] MEDS ORDERED: SIMETHICONE 80 MG CHEWABLE PO PRN (09:07)
[2021-10-09] MEDS ORDERED: ONDANSETRON 4 MG/2 ML VIAL IVP PRN (09:07)
[2021-10-09] MEDS ORDERED: diphenhydrAMINE 25 MG CAP PO PRN (09:07)
[2021-10-09] MEDS ORDERED: METOCLOPRAMIDE 5 MG/ML 2 ML VIAL IVP PRN (09:07)
[2021-10-09] MEDS ORDERED: NALOXONE 0.4 MG/ML 1 ML VIAL IV PRN (09:07)
[2021-10-09] MEDS ORDERED: LANOLIN CREAM 5 GM TUBE TOPICAL PRN (09:07)
[2021-10-09] MEDS ORDERED: diphenhydrAMINE 50 MG/ML 1 ML VIAL IVP PRN (09:07)
[2021-10-09] MEDS: SENNOSIDES-DOCUSATE SODIUM 1 EACH TAB PO SCH ×2 (10:38→20:49)
[2021-10-09] MEDS: LACTATED RINGERS 1,000 ML IV SCH ×2 (10:38→12:21)
[2021-10-09] MEDS: KETOROLAC 15 MG/ML 1 ML VIAL IVP SCH ×2 (13:46→20:23)
[2021-10-09] MEDS ORDERED: methylPREDNISolone 4 MG TAB TAPER PO SCH (14:00)
[2021-10-09] MEDS: ACETAMINOPHEN TAB 500 MG TAB PO PRN (16:32)
[2021-10-10] MEDS: ACETAMINOPHEN TAB 500 MG TAB PO PRN ×4 (00:36→19:50)
[2021-10-10] MEDS: KETOROLAC 15 MG/ML 1 ML VIAL IVP SCH ×2 (04:20→10:21)
[2021-10-10 05:27] LABS: Basophils % (A) 0 %; Eosinophils % (A) 0 %; HCT 30.7 % (34.0-46.0); HGB 10.3 gm/dL (11.4-16.0); Lymphocytes # (A) 1.3 k/uL (1.0-4.8); Lymphocytes % (A) 12 %; MCH 33.5 pg (25.0-35.0); MCHC 33.5 g/dL (31.0-37.0); MCV 99.8 fL (80.0-100.0); Macrocytosis Slight; Mean Platelet Volume 9.5; Monocytes # (A) 0.5 k/uL (0-1.0); Monocytes % (A) 5 %; Neutrophils # (A) 8.9 k/uL (1.3-7.7); Neutrophils % (A) 81 %; Platelet Count 200 k/uL (150-450); RBC 3.07 m/uL (3.80-5.40); RDW 13.9 % (11.5-15.5); WBC 10.9 k/uL (3.8-10.6)
--- NOTE | 2021-10-10 07:36 | P.PNOBGPC ---
Subjective - Subjective Patient reports: Reports appetite normal, Reports voiding normally, Reports pain well controlled, Reports ambulating normally : doing well Objective - Vital Signs Latest vital signs: Vital Signs Temp Pulse Resp BP Pulse Ox 10/10/21 04:00 98.1 F 74 16 101/60 96 10/10/21 00:00 98.0 F 68 16 96/50 10/09/21 20:00 97.6 F 71 16 105/68 10/09/21 16:00 98.0 F 76 16 105/59 95 10/09/21 12:00 98.2 F 71 16 110/56 94 L 10/09/21 10:40 97.8 F 92 16 111/67 96 10/09/21 10:05 69 16 97/56 95 10/09/21 09:40 74 16 100/55 94 L 10/09/21 09:25 83 16 97/54 97 10/09/21 09:07 96 10/09/21 09:05 81 16 98/56 97 10/09/21 08:55 76 16 95/50 98 10/09/21 08:40 97.2 F L 81 16 93/53 98 Intake and Output 10/09/21 10/10/21 10/10/21 22:59 06:59 14:59 Output Total 100 600 Balance -100 -600 Output: Urine 100 600 Other: # Voids 1 2 - Exam Lungs: bilateral: normal Chest: Normal S1, Normal S2 Extremities: Present: normal Abdomen: Present: normal appearance, soft. Absent: distention, tenderness Incision: Present: normal, dry, intact Uterus: Present: normal, firm - Labs Labs: Abnormal Lab Results - Last 24 Hours (Table) 10/10/21 Range/Units 05:13 WBC 10.9 H (3.8-10.6) k/uL RBC 3.07 L (3.80-5.40) m/uL Hgb 10.3 L (11.4-16.0) gm/dL Hct 30.7 L (34.0-46.0) % Neutrophils # 8.9 H (1.3-7.7) k/uL Assessment and Plan Assessment: Postoperative day #1. Patient is resting without new complaints. Vital signs are stable and she is afebrile. Uterus is firm nontender and her incision is intact and dry. CBC today was normal. Plan today is to continue routine postoperative care. We'll encourage ambulation and allow the patient to shower. Continue regular diet. (1) 37 weeks gestation of Current Visit: No Status: Acute Code(s): Z3A.37 - 37 WEEKS GESTATION OF SNOMED Code(s): 78291190 (2) Previous delivery affecting Current Visit: No Status: Acute Code(s): O34.219 - MATERNAL CARE FOR UNSP TYPE SCAR FROM PREVIOUS DEL SNOMED Code(s): 896349632 (3) Family planning Current Visit: No Status: Acute Code(s): Z30.09 - ENCOUNTER FOR OTH GENERAL CNSL AND ADVICE ON CONTRACEPTION SNOMED Code(s): 899001588 (4) History of stillbirth Current Visit: No Status: Acute Code(s): Z87.59 - PERSONAL HISTORY OF COMP OF PREG, CHLDBRTH AND THE PUERP SNOMED Code(s): 456198849 (5) Chronic use of steroids Current Visit: No Status: Acute Code(s): UUS0996 - SNOMED Code(s): 639238672 (6) 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
[2021-10-10] MEDS: SENNOSIDES-DOCUSATE SODIUM 1 EACH TAB PO SCH ×2 (08:31→19:48)
--- NOTE | 2021-10-10 09:13 | P.PN ---
Progress Note - Text Progress Note Date: 10/10/21 (925) Anesthesia Postop day 1 Subjective: Status Post section with Duramorph. Patient seen and examined. Doing well without complaint. VAS 0. Mild nausea and vomiting yesterday. Resolved with meds. No pruritus. Afebrile. Gross lower extremity strength intact. . Without apparent anesthetic complications. Objective: Vital signs reviewed Heart: Regular Rate Lungs: Good chest excursion Abdomen: Appears nondistended Assessment: Status post with Duramorph postop day 1 Plan: Continue current care with your medical management. Anticipated change in pain coverage needs this morning. Discussed with patient, all questions answered
[2021-10-10] MEDS: IBUPROFEN 600 MG TAB PO PRN (16:28)
[2021-10-11] MEDS: IBUPROFEN 600 MG TAB PO PRN ×3 (00:35→16:51)
[2021-10-11 01:08] VITALS: RESP 16
--- NOTE | 2021-10-11 07:40 | P.PNOBGPC ---
Subjective - Subjective Patient reports: Reports appetite normal, Reports voiding normally, Reports pain well controlled, Reports ambulating normally : doing well Objective - Vital Signs Latest vital signs: Vital Signs Temp Pulse Resp BP Pulse Ox 10/11/21 00:00 97.9 F 71 16 120/73 10/10/21 16:00 98.0 F 76 17 109/72 95 10/10/21 09:07 97 10/10/21 08:00 98.0 F 90 17 109/72 97 Intake and Output 10/10/21 10/11/21 10/11/21 22:59 06:59 14:59 Other: # Voids 2 2 - Exam Lungs: bilateral: normal Chest: Normal S1, Normal S2 Extremities: Present: normal Abdomen: Present: normal appearance, soft. Absent: distention, tenderness Incision: Present: normal, dry, intact Uterus: Present: normal, firm Assessment and Plan Assessment: Postoperative day #2. Patient is resting without new complaints and wishes to go home. Vital signs are stable and she is afebrile. Uterus is firm nontender and her incision is intact and dry. My impression this is a normal course. Plan is to continue routine postoperative care discharge home later today. (1) 37 weeks gestation of Current Visit: No Status: Acute Code(s): Z3A.37 - 37 WEEKS GESTATION OF SNOMED Code(s): 37803220 (2) Previous delivery affecting Current Visit: No Status: Acute Code(s): O34.219 - MATERNAL CARE FOR UNSP TY PE SCAR FROM PREVIOUS DEL SNOMED Code(s): 631807308 (3) Family planning Current Visit: No Status: Acute Code(s): Z30.09 - ENCOUNTER FOR OT GENERAL CNSL AND ADVICE ON CONTRACEPTION SNOMED Code(s): 967271593 (4) History of stillbirth Current Visit: No Status: Acute Code(s): Z87.59 - PERSONAL HISTORY OF COMP OF PREG, CHLDBRTH AND THE PUERP SNOMED Code(s): 283509020 (5) Chronic use of steroids Current Visit: No Status: Acute Code(s): KJI2941 - SNOMED Code(s): 900450203 (6) 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
--- NOTE | 2021-10-11 07:44 | P.DS ---
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 Brief summary this is a pleasant 36-year-old 4 para 1 female 37 weeks gestation admitted to labor and delivery for elective repeat section and also tubal ligation secondary to previous section and history of previous stillborn. Patient is admitted she undergoes above-named surgeries. Postoperatively she does well on postoperative 2 spell to be stable for discharge home follow up with me in 1 week. Procedures: Repeat low transverse section and bilateral partial salpingectomy Patient Condition at Discharge: Good Plan - Discharge Summary New Discharge Prescriptions: New Ibuprofen [Motrin] 600 mg PO Q6H PRN #40 tab PRN Reason: Pain oxyCODONE HCL [OxyIR] 5 mg PO Q4HR PRN #18 tab PRN Reason: Pain Scale 4 - 6 methylPREDNISolone Dose Pack [Medrol Dose Pack] 24 mg PO DAILY #1 unit No Action Albuterol Nebulized [Ventolin Nebulized] 2.5 mg INHALATION RT-QID PRN PRN Reason: Shortness Of Breath Pnv,Calcium 72/Iron/Folic Acid [ Plus Tablet] 1 tab PO DAILY Aspirin EC [Ecotrin Low Dose] 81 mg PO DAILY Montelukast [Singulair] 10 mg PO HS Famotidine [Pepcid] 20 mg PO DAILY Fluticasone/Vilanterol [Breo Ellipta 200-25 Mcg Inhaler] 1 puff INHALATION DAILY Discharge Medication List Albuterol Nebulized [Ventolin Nebulized] 2.5 mg INHALATION RT-QID PRN 04/21/18 [History] Pnv,Calcium 72/Iron/Folic Acid [ Plus Tablet] 1 tab PO DAILY 04/23/18 [History] Aspirin EC [Ecotrin Low Dose] 81 mg PO DAILY 04/22/20 [History] Montelukast [Singulair] 10 mg PO HS 04/22/20 [History] Famotidine [Pepcid] 20 mg PO DAILY 07/19/20 [History] Fluticasone/Vilanterol [Breo Ellipta 200-25 Mcg Inhaler] 1 puff INHALATION DAILY 10/09/21 [History] Ibuprofen [Motrin] 600 mg PO Q6H PRN #40 tab 10/09/21 [Rx] methylPREDNISolone Dose Pack [Medrol Dose Pack] 24 mg PO DAILY #1 unit 10/09/21 [Rx] oxyCODONE HCL [OxyIR] 5 mg PO Q4HR PRN #18 tab 10/09/21 [Rx] Follow up Appointment(s)/Referral(s): Sukhdeep Hook MD [STAFF PHYSICIAN] - 11/18/21 8:30 am (Postoperative incision check on 10-16-21 @ 01:30p.m.) Patient Instructions/Handouts: (DC) Activity/Diet/Wound Care/Special Instructions: No strenuous activity or heavy lifting for 6 weeks. No intercourse or anything per vagina for 6 weeks. Please call if any fever, chills, excessive vaginal bleeding, and/or abdominal pain. Discharge Disposition: HOME SELF-CARE
[2021-10-11] MEDS: ACETAMINOPHEN TAB 500 MG TAB PO PRN ×2 (08:54→18:45)
[2021-10-11] MEDS: SENNOSIDES-DOCUSATE SODIUM 1 EACH TAB PO SCH ×2 (08:54→20:26)
[2021-10-11] MEDS: KETOROLAC 15 MG/ML 1 ML VIAL IVP SCH (09:46)
[2021-10-12] MEDS ORDERED: ONDANSETRON 4 MG TAB PO PRN (00:10)
[2021-10-12] MEDS: FAMOTIDINE 20 MG TAB PO SCH ×2 (01:04→07:58)
[2021-10-12] MEDS: IBUPROFEN 600 MG TAB PO PRN ×2 (01:04→11:53)
--- NOTE | 2021-10-12 06:05 | P.PNOBGPC ---
Subjective - Subjective Patient reports: Reports appetite normal, Reports voiding normally, Reports pain well controlled, Reports ambulating normally : doing well Objective - Vital Signs Latest vital signs: Vital Signs Temp Pulse Resp BP Pulse Ox 10/12/21 00:00 98.2 F 71 16 119/76 10/11/21 16:00 98.3 F 82 16 120/75 10/11/21 08:00 97.9 F 76 16 131/77 98 Intake and Output 10/11/21 10/11/21 10/12/21 14:59 22:59 06:59 Other: # Voids 1 1 1 - Exam Lungs: bilateral: normal Chest: Normal S1, Normal S2 Extremities: Present: normal Abdomen: Present: normal appearance, soft. Absent: distention, tenderness Incision: Present: normal, dry, intact Uterus: Present: normal, firm Assessment and Plan Assessment: Postoperative day #3. Patient is resting without new complaints. She stayed yesterday because her baby is getting some phototherapy. Plan today is to continue routine postoperative care and discharge home. (1) 37 weeks gestation of Current Visit: No Status: Acute Code(s): Z3A.37 - 37 WEEKS GESTATION OF SNOMED Code(s): 74307309 (2) Previous delivery affecting Current Visit: No Status: Acute Code(s): O34.219 - MATERNAL CARE FOR UNSP TYPE SCAR FROM PREVIOUS DEL SNOMED Code(s): 833767959 (3) Family planning Current Visit: No Status: Acute Code(s): Z30.09 - ENCOUNTER FOR OTH GENERAL CNSL AND ADVICE ON CONTRACEPTION SNOMED Code(s): 976804590 (4) History of stillbirth Current Visit: No Status: Acute Code(s): Z87.59 - PERSONAL HISTORY OF COMP OF PREG, CHLDBRTH AND THE PUERP SNOMED Code(s): 333590029 (5) Chronic use of steroids Current Visit: No Status: Acute Code(s): WUI0940 - SNOMED Code(s): 231602177 (6) 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
[2021-10-12] MEDS: ACETAMINOPHEN TAB 500 MG TAB PO PRN (07:56)
[2021-10-12] MEDS: SENNOSIDES-DOCUSATE SODIUM 1 EACH TAB PO SCH (07:56)
[2021-10-12 09:43] VITALS: BP 115/75; PULSE 65; TEMP 98.5
== END 2021-10-12 16:30 | disposition home or self-care (01) | DRG 784 ==
LOC: 4FBP 05:57
PROVIDERS: ADMIT Obstetrics & Gynecology; ATTEND Obstetrics & Gynecology
PROC: 0UB70ZZ Excision of Bilateral Fallopian Tubes, Open Approach (ICD-10-PCS; 2021-10-09)
PROC: 10D00Z1 Extraction of Products of Conception, Low, Open Approach (ICD-10-PCS; principal; 2021-10-09 08:00)
DX: O34.211 Maternal care for low transverse scar from previous cesarean delivery (principal); J45.901 Unspecified asthma with (acute) exacerbation; O35.9XX0 Maternal care for (suspected) fetal abnormality and damage, unspecified, not applicable or unspecified; Z79.82 Long term (current) use of aspirin; O69.81X0 Labor and delivery complicated by cord around neck, without compression, not applicable or unspecified; O99.62 Diseases of the digestive system complicating childbirth; K21.9 Gastro-esophageal reflux disease without esophagitis; O99.284 Endocrine, nutritional and metabolic diseases complicating childbirth; E07.9 Disorder of thyroid, unspecified; Z79.899 Other long term (current) drug therapy; O99.52 Diseases of the respiratory system complicating childbirth; Z30.2 Encounter for sterilization; Z37.0 Single live birth; Z3A.37 37 weeks gestation of pregnancy; Z79.52 Long term (current) use of systemic steroids
CPT/HCPCS: 85025; 86850; 86900; 86901; 88302; 88307; 88313

== ENCOUNTER 2021-10-15 00:12 | Emergency (ER) | payer BC ==
[2021-10-15 00:26] VITALS: TEMP 98.9
[2021-10-15 01:28] LABS: Appearance,Urine Clear (Clear); Bacteria,Urine Rare /hpf; Bilirubin,Urine Negative (Negative); Blood,Urine Moderate (Negative); Color,Urine Light Yellow; Glucose,Urine (UA) Negative (Negative); Ketones,Urine Negative (Negative); Leukocyte Esterase,Urine Negative (Negative); Nitrite,Urine Negative (Negative); PH, Urine 6.5 (5.0-8.0); Protein,Urine Negative (Negative); RBC,Urine 1 /hpf (0-5); Specific Gravity,Urine 1.004 (1.001-1.035); Squamous Epithelial Cell,Urine 3 /hpf (0-4); Urobilinogen,Urine <2.0 mg/dL (<2.0); WBC,Urine 1 /hpf (0-5)
[2021-10-15 03:22] LABS: Basophils % (A) 0 %; Eosinophils # (A) 0.1 k/uL (0-0.7); Eosinophils % (A) 1 %; HCT 33.3 % (34.0-46.0); HGB 11.5 gm/dL (11.4-16.0); Lymphocytes # (A) 1.7 k/uL (1.0-4.8); Lymphocytes % (A) 27 %; MCHC 34.6 g/dL (31.0-37.0); MCV 98.2 fL (80.0-100.0); Mean Platelet Volume 8.6; Monocytes # (A) 0.4 k/uL (0-1.0); Monocytes % (A) 6 %; Neutrophils # (A) 3.9 k/uL (1.3-7.7); Neutrophils % (A) 62 %; Platelet Count 242 k/uL (150-450); RBC 3.39 m/uL (3.80-5.40); RDW 14.1 % (11.5-15.5); WBC 6.3 k/uL (3.8-10.6)
[2021-10-15 03:41] LABS: ALT 18 U/L (4-34); AST 18 U/L (14-36); African American GFR (CKD) >90 (>60 ml/min/1.73 sqM); Albumin 3.2 g/dL (3.5-5.0); Alkaline Phosphatase 72 U/L (38-126); Amylase 62 U/L (30-110); Anion Gap 5 mmol/L; Blood Urea Nitrogen 5 mg/dL (7-17); Calcium 8.8 mg/dL (8.4-10.2); Carbon Dioxide 24 mmol/L (22-30); Chloride 108 mmol/L (98-107); Glucose 85 mg/dL (74-99); LDH 629 U/L (313-618); Lipase 63 U/L (23-300); Non-African American GFR(CKD) >90 (>60 ml/min/1.73 sqM); Potassium 3.4 mmol/L (3.5-5.1); Sodium 137 mmol/L (137-145); Total Bilirubin 0.5 mg/dL (0.2-1.3); Total Protein 5.9 g/dL (6.3-8.2); Uric Acid 4.2 mg/dL (3.7-7.4)
[2021-10-15] MEDS ORDERED: MAG HYDROX/AL HYDROX/SIMETH 30 ML, HYOSCYAMINE ELIXIR 10 ML, LIDOCAINE VISCOUS 2% 10 ML PO STA ×3 (03:48)
--- NOTE | 2021-10-15 03:50 | ED ---
Abdominal Pain HPI - General Chief Complaint: Abdominal Pain Stated Complaint: Abd Pain Time Seen by Provider: 10/15/21 01:58 Source: patient, family Mode of arrival: ambulatory Limitations: no limitations - History of Present Illness Initial Comments: 's patient is 36-year-old woman. Today 5 following a section for induced hypertension. Patient states that for the past couple days she has noticed some epigastric and upper abdomen discomfort. It seems to be somewhat positional. She has not noted elevated blood pressure, chest pain, dyspnea, leg swelling or other symptoms. MD Complaint: abdominal pain -: days(s) Location: epigastric Radiation: none Migration to: no migration Severity: mild Quality: other Consistency: constant Improves With: nothing Worsens With: other (Physician) Associated Symptoms: denies other symptoms - Related Data Home Medications Medication Instructions Recorded Confirmed Albuterol Nebulized [Ventolin 2.5 mg INHALATION RT-QID PRN 04/21/18 10/09/21 Nebulized] Pnv,Calcium 72/Iron/Folic Acid 1 tab PO DAILY 04/23/18 10/09/21 [ Plus Tablet] Aspirin EC [Ecotrin Low Dose] 81 mg PO DAILY 04/22/20 10/09/21 Montelukast [Singulair] 10 mg PO HS 04/22/20 10/09/21 Famotidine [Pepcid] 20 mg PO DAILY 07/19/20 10/09/21 Fluticasone/Vilanterol [Breo 1 puff INHALATION DAILY 10/09/21 10/09/21 Ellipta 200-25 Mcg Inhaler] Previous Rx's Medication Instructions Recorded Ibuprofen [Motrin] 600 mg PO Q6H PRN #40 tab 10/09/21 methylPREDNISolone Dose Pack 24 mg PO DAILY #1 unit 10/09/21 [Medrol Dose Pack] oxyCODONE HCL [OxyIR] 5 mg PO Q4HR PRN #18 tab 10/09/21 Allergies Allergy/AdvReac Type Severity Reaction Status Date / Time No Known Allergies Allergy Verified 10/15/21 00:26 Review of Systems ROS Statement: Those systems with pertinent positive or pertinent negative responses have been documented in the HPI. ROS Other: All systems not noted in ROS Statement are negative. Constitutional: Denies: fever, chills Respiratory: Denies: cough, dyspnea Cardiovascular: Denies: chest pain, palpitations, edema Gastrointestinal: Reports: abdominal pain. Denies: vomiting, diarrhea, constipation, melena, hematochezia Genitourinary: Denies: dysuria, hematuria Skin: Denies: rash Neurological: Denies: headache, weakness Past Medical History Past Medical History: Asthma, GERD/Reflux Additional Past Medical History / Comment(s): Patient's obstetrical history is significant for for cephalopelvic dystocia with her first , an ectopic , and a for a 29 week demise. History of Any Multi-Drug Resistant Organisms: None Reported Past Surgical History: Section Additional Past Surgical History / Comment(s): [place] teeth removal 2003 Past Anesthesia/Blood Transfusion Reactions: No Reported Reaction Past Psychological History: No Psychological Hx Reported Smoking Status: Never smoker Past Alcohol Use History: None Reported Past Drug Use History: None Reported - Past Family History Father Family Medical History: Hypertension Mother History Unknown: Yes Family Medical History: No Reported History Additional Family Medical History / Comment(s): Mother is healthy General Exam Limitations: no limitations General appearance: alert, in no apparent distress Head exam: Present: atraumatic, normocephalic Eye exam: Present: normal appearance. Absent: scleral icterus, conjunctival injection Neck exam: Present: normal inspection Respiratory exam: Present: normal lung sounds bilaterally. Absent: respiratory distress, wheezes, rales, rhonchi, stridor Cardiovascular Exam: Present: regular rate, normal rhythm, normal heart sounds. Absent: systolic murmur, diastolic murmur, rubs, gallop GI/Abdominal exam: Present: soft. Absent: distended, tenderness, guarding, rebound, rigid, mass, pulsatile mass, hernia Extremities exam: Present: normal inspection, normal capillary refill. Absent: pedal edema, calf tenderness Back exam: Present: normal inspection. Absent: CVA tenderness (R), CVA tenderness (L) Neurological exam: Present: alert Skin exam: Present: warm, dry, intact, normal color. Absent: rash Course Vital Signs 10/15/21 10/15/21 00:21 03:55 Temperature 98.9 F Pulse Rate 66 70 Respiratory 22 18 Rate Blood Pressure 138/84 128/67 O2 Sat by Pulse 96 98 Oximetry Medical Decision Making - Lab Data Result diagrams: 10/15/21 03:01 10/15/21 03:01 Lab Results 10/15/21 10/15/21 10/15/21 Range/Units 00:43 03:01 03:01 WBC 6.3 (3.8-10.6) k/uL RBC 3.39 L (3.80-5.40) m/uL Hgb 11.5 (11.4-16.0) gm/dL Hct 33.3 L (34.0-46.0) % MCV 98.2 (80.0-100.0) fL MCH 34.0 (25.0-35.0) pg MCHC 34.6 (31.0-37.0) g/dL RDW 14.1 (11.5-15.5) % Plt Count 242 (150-450) k/uL MPV 8.6 Neutrophils % 62 % Lymphocytes % 27 % Monocytes % 6 % Eosinophils % 1 % Basophils % 0 % Neutrophils # 3.9 (1.3-7.7) k/uL Lymphocytes # 1.7 (1.0-4.8) k/uL Monocytes # 0.4 (0-1.0) k/uL Eosinophils # 0.1 (0-0.7) k/uL Basophils # 0.0 (0-0.2) k/uL Sodium 137 (137-145) mmol/L Potassium 3.4 L (3.5-5.1) mmol/L Chloride 108 H (98-107) mmol/L Carbon Dioxide 24 (22-30) mmol/L Anion Gap 5 mmol/L BUN 5 L (7-17) mg/dL Creatinine 0.44 L (0.52-1.04) mg/dL Est GFR (CKD-EPI)AfAm >90 (>60 ml/min/1.73 sqM) Est GFR (CKD-EPI)NonAf >90 (>60 ml/min/1.73 sqM) Glucose 85 (74-99) mg/dL Uric Acid 4.2 (3.7-7.4) mg/dL Calcium 8.8 (8.4-10.2) mg/dL Total Bilirubin 0.5 (0.2-1.3) mg/dL AST 18 (14-36) U/L ALT 18 (4-34) U/L Alkaline Phosphatase 72 (38-126) U/L Lactate Dehydrogenase 629 H (313-618) U/L Total Protein 5.9 L (6.3-8.2) g/dL Albumin 3.2 L (3.5-5.0) g/dL Amylase 62 (30-110) U/L Lipase 63 (23-300) U/L Urine Color Light Yellow Urine Appearance Clear (Clear) Urine pH 6.5 (5.0-8.0) Ur Specific [place] 1.004 (1.001-1.035) Urine Protein Negative (Negative) Urine Glucose (UA) Negative (Negative) Urine Ketones Negative (Negative) Urine Blood Moderate H (Negative) Urine Nitrite Negative (Negative) Urine Bilirubin Negative (Negative) Urine Urobilinogen <2.0 (<2.0) mg/dL Ur Leukocyte Esterase Negative (Negative) Urine RBC 1 (0-5) /hpf Urine WBC 1 (0-5) /hpf Ur Squamous Epith Cells 3 (0-4) /hpf Urine Bacteria Rare H (None) /hpf Disposition Clinical Impression: Abdominal pain Disposition: HOME SELF-CARE Condition: Good Instructions (If sedation given, give patient instructions): Abdominal Pain (ED) Is patient prescribed a controlled substance at d/c from ED?: No Referrals: Emy Rick MD [Primary Care Provider] - 1-2 days Sukhdeep Hook MD [STAFF PHYSICIAN] - 1-2 days
[2021-10-15 03:57] VITALS: BP 128/67; PULSE 70; RESP 18
== END 2021-10-15 03:57 | disposition home or self-care (01) ==
LOC: EC 00:12
DX: R10.9 Unspecified abdominal pain (principal); J45.909 Unspecified asthma, uncomplicated
CPT/HCPCS: 36415; 80053; 81001; 82150; 83615; 83690; 84550; 85025; 93005; 99284

== ENCOUNTER → 2022-08-27 | Outpatient (CLI) | payer BC ==
[2022-08-27 14:40] LABS: Basophils # (A) 0.05 X 10*3/uL (0.00-0.10); Basophils % (A) 0.8 %; Eosinophils # (A) 0.04 X 10*3/uL (0.04-0.35); Eosinophils % (A) 0.6 %; HCT 45.7 % (37.2-46.3); HGB 14.7 g/dL (12.0-15.0); Immature Grans, Automated 0.6 %; Lymphocytes # (A) 2.36 X 10*3/uL (0.90-5.00); Lymphocytes % (A) 35.6 %; MCH 31.5 pg (27.0-32.0); MCHC 32.2 g/dL (32.0-37.0); MCV 97.9 fL (80.0-97.0); Mean Platelet Volume 11.3 fL (9.5-12.2); Monocytes # (A) 0.54 X 10*3/uL (0.20-1.00); Monocytes % (A) 8.2 %; NRBC Per 100 WBC 0 /100 WBCS (0.0-0.0); Neutrophils # (A) 3.59 X 10*3/uL (1.80-7.70); Neutrophils % (A) 54.2 %; Platelet Count 247 X 10*3/uL (140-440); RBC 4.67 X 10*6/uL (4.10-5.20); RDW 13.2 % (11.5-14.5); WBC 6.62 X 10*3/uL (4.50-10.00)
[2022-08-27 14:59] LABS: ALT 13 U/L (8-44); AST 14 U/L (13-35); Albumin 4.5 g/dL (3.8-4.9); Albumin/Globulin Ratio 1.61 (1.60-3.17); Alkaline Phosphatase 88 U/L (41-126); Blood Urea Nitrogen 16.2 mg/dL (9.0-27.0); Calcium 9.3 mg/dL (8.7-10.3); Carbon Dioxide 26.4 mmol/L (20.0-27.5); Chloride 103 mmol/L (96-109); Globulin 2.8 g/dL (1.6-3.3); Glucose 72 mg/dL (70-110); LDL Cholesterol,Calculated 90.4 mg/dL (0.0-131.0); Non-African American GFR(CKD) 81.1 (60.0-200.0); Potassium 4.1 mmol/L (3.5-5.5); Sodium 140 mmol/L (135-145); Total Protein 7.3 g/dL (6.2-8.2); VLDL Calculation 9.82 mg/dL (5.00-40.00)
== END | disposition home or self-care (01) ==
LOC: LABWHC1 08:59
PROVIDERS: ATTEND Family Medicine
DX: Z00.00 Encounter for general adult medical examination without abnormal findings (principal); Z11.59 Encounter for screening for other viral diseases
CPT/HCPCS: 36415; 80053; 80061; 84443; 85025; 86803

== ENCOUNTER → 2022-11-02 | Outpatient (CLI) | payer BC | LOC: CPPFTMAIN 09:59 | PROVIDERS: ATTEND Internal Medicine Critical Care Medicine | DX: J45.50 Severe persistent asthma, uncomplicated (principal) | CPT/HCPCS: 94060; 94726; 94729 ==

== ENCOUNTER → 2023-03-08 | Outpatient (CLI) | payer BC ==
--- NOTE | 2023-03-10 07:31 | MM ---
Reason for Exam: Screening (asymptomatic). Patient History: Menarche at age 13. First Full-Term at age 31. Late child-bearing (after 30). Patient has history of breast feeding. Last menstrual period: 02/24/2023 Risk Values: Susy 5 year model risk: 0.6%. NCI Lifetime model risk: 12.6%. Tissue Density: The breast tissue is heterogeneously dense. This may lower the sensitivity of mammography. Findings: Analyzed By CAD. There is no suspicious group of microcalcifications or new suspicious mass in either breast. Overall Assessment: Negative, BI-RAD 1 Management: Screening Mammogram of both breasts in [address] [facility] will attempt to contact patient to return for supplemental views and ultrasound if indicated. Patient should continue monthly self-breast exams. A clinical breast exam by your physician is recommended on an annual basis. This exam should not preclude additional follow-up of suspicious palpable abnormalities. Note on Susy scores and lifetime risk: 1. A Susy score greater than 3% is considered moderate risk. If this is the case, consider specialist referral to assess eligibility for a risk reducing agent. 2. If overall lifetime risk for the development of breast cancer is 20% or higher, the patient may qualify for future screening with alternating mammogram and breast MRI. Electronically signed and approved by: Marko Napoles DO
== END | disposition home or self-care (01) ==
LOC: RADMAMWWP 13:52
PROVIDERS: ATTEND Obstetrics & Gynecology
DX: Z12.31 Encounter for screening mammogram for malignant neoplasm of breast (principal)
CPT/HCPCS: 77063; 77067

== ENCOUNTER → 2024-09-15 | Outpatient (CLI) | payer BC ==
[2024-09-15 13:23] LABS: Basophils # (A) 0.05 X 10*3/uL (0.00-0.10); Basophils % (A) 1.6 %; Eosinophils # (A) 0.07 X 10*3/uL (0.04-0.35); Eosinophils % (A) 2.2 %; HCT 42.6 % (37.2-46.3); HGB 14.5 g/dL (12.0-15.0); Immature Grans, Automated 0 %; Lymphocytes # (A) 1.45 X 10*3/uL (0.90-5.00); Lymphocytes % (A) 45.9 %; Mean Platelet Volume 12.6 FL (9.5-12.2); Monocytes # (A) 0.27 X 10*3/uL (0.20-1.00); Monocytes % (A) 8.5 %; NRBC Per 100 WBC 0 X 10*3/uL (0.00-0.01); Neutrophils # (A) 1.32 X 10*3/uL (1.80-7.70); Neutrophils % (A) 41.8 %; Platelet Count 180 X 10*3/uL (140-440); RBC 4.39 X 10*6/uL (4.10-5.20); RDW 11.9 % (11.5-14.5); WBC 3.16 X 10*3/uL (4.50-10.00)
[2024-09-15 13:36] LABS: Chol/HDL Ratio 2.37 Ratio
[2024-09-15 13:37] LABS: ALT 11 U/L (8-44); AST 18 U/L (13-35); Albumin 4.6 g/dL (3.8-4.9); Alkaline Phosphatase 44 U/L (41-126); BUN/Creat Ratio 16.89 Ratio (12.00-20.00); Blood Urea Nitrogen 15.2 mg/dL (9.0-27.0); Calcium 9.6 mg/dL (8.7-10.3); Carbon Dioxide 23.5 mmol/L (21.6-31.8); Chloride 105 mmol/L (96-109); Globulin 2.3 g/dL (1.6-3.3); Glucose 87 mg/dL (70-110); LDL Cholesterol,Calculated 77.4 mg/dL (0.0-131.0); Potassium 4.3 mmol/L (3.5-5.5); Sodium 141 mmol/L (135-145); Total Bilirubin 0.8 mg/dL (0.3-1.2); Total Protein 6.9 g/dL (6.2-8.2)
== END | disposition home or self-care (01) ==
LOC: LABWHC1 08:59
PROVIDERS: ATTEND Family Medicine
DX: Z00.00 Encounter for general adult medical examination without abnormal findings (principal)
CPT/HCPCS: 36415; 80053; 80061; 84443; 85025

== ENCOUNTER 2024-09-16 07:46 | Emergency (ER) | payer BC ==
[2024-09-16 07:55] VITALS: BP 148/93; PULSE 74; RESP 16; TEMP 97.8
--- NOTE | 2024-09-16 08:11 | ED ---
General Adult HPI - General Chief complaint: Abdominal Pain Stated complaint: abd pain Time Seen by Provider: 09/16/24 07:55 Source: patient Mode of arrival: ambulatory Limitations: no limitations - History of Present Illness Initial comments: Dictation was produced using [place] dictation software. please excuse any grammatical, word or spelling errors. Chief Complaint: 39-year-old female with 1 day of abdominal pain and nausea History of Present Illness: Patient is a 39-year-old female past medical history of asthma. States that since 7 PM last night she started to have some abdominal pain. She localizes the pain to her epigastric left upper quadrant region. States that it is nonradiating. States its rather severe she is unable to sleep last night. She tried heat but did not have any vomiting. She had 1 bout of loose stool. Denies any fever chills or night sweats. The ROS documented in this emergency department record has been reviewed and confirmed by me. Those systems with pertinent positive or negative responses have been documented in the HPI. All other systems are other negative and/or noncontributory. - Related Data Home Medications Medication Instructions Recorded Confirmed Albuterol Nebulized [Ventolin 2.5 mg INHALATION RT-QID PRN 04/21/18 10/09/21 Nebulized] Vit No.180/Iron/Folic 1 tab PO DAILY 04/23/18 10/09/21 [ Plus Vitamin-Mineral] Aspirin EC [Ecotrin Low Dose] 81 mg PO DAILY 04/22/20 10/09/21 Montelukast [Singulair] 10 mg PO HS 04/22/20 10/09/21 Famotidine [Pepcid] 20 mg PO DAILY 07/19/20 10/09/21 Fluticasone/Vilanterol [Breo 1 puff INHALATION DAILY 10/09/21 10/09/21 Ellipta 200-25 Mcg Inhaler] Previous Rx's Medication Instructions Recorded Ibuprofen [Motrin] 600 mg PO Q6H PRN #40 tab 10/09/21 methylPREDNISolone Dose Pack 24 mg PO DAILY #1 unit 10/09/21 [Medrol Dose Pack] oxyCODONE HCL [OxyIR] 5 mg PO Q4HR PRN #18 tab 10/09/21 Allergies Allergy/AdvReac Type Severity Reaction Status Date / Time No Known Allergies Allergy Verified 10/15/21 00:26 Review of Systems ROS Statement: Those systems with pertinent positive or pertinent negative responses have been documented in the HPI. ROS Other: All systems not noted in ROS Statement are negative. Past Medical History Past Medical History: Asthma, GERD/Reflux Additional Past Medical History / Comment(s): Patient's obstetrical history is s ignificant for for cephalopelvic dystocia with her first , an ectopic , and a for a 29 week demise. History of Any Multi-Drug Resistant Organisms: None Reported Past Surgical History: Section Additional Past Surgical History / Comment(s): [place] teeth removal 2003 Past Anesthesia/Blood Transfusion Reactions: No Reported Reaction Past Psychological History: No Psychological Hx Reported Smoking Status: Never smoker Past Alcohol Use History: None Reported Past Drug Use History: None Reported - Past Family History Father Family Medical History: Hypertension Mother History Unknown: Yes Family Medical History: No Reported History Additional Family Medical History / Comment(s): Mother is healthy General Exam - General Exam Comments Initial Comments: PHYSICAL EXAM: General Impression: Alert and oriented x3, not in acute distress HEENT: Normocephalic atraumatic, extra-ocular movements intact, pupils equal and reactive to light bilaterally, mucous membranes moist. Cardiovascular: Heart regular rate and rhythm Chest: Able to complete full sentences, no retractions, no tachypnea Abdomen: abdomen soft, mild epigastric palpatory tenderness, non-distended, no organomegaly Musculoskeletal: Pulses present and equal in all extremities, no peripheral edema Motor: no focal deficits noted Neurological: CN II-XII grossly intact, no focal motor or sensory deficits noted Skin: Intact with no visualized rashes Psych: Normal affect and mood Limitations: no limitations Course Vital Signs 09/16/24 07:52 Temperature 97.8 F Pulse Rate 74 Respiratory 16 Rate Blood Pressure 148/93 O2 Sat by Pulse 98 Oximetry Medical Decision Making - Medical Decision Making Was pt. sent in by a medical professional or institution (, PA, VETERINARY ANATOMIST, urgent care, hospital, or longterm...) When possible be specific @ -No Did you speak to anyone other than the patient for history (EMS, parent, family, police, friend...)? What history was obtained from this source @ -No Did you review nursing and triage notes (agree or disagree)? Why? @ -I reviewed and agree with nursing and triage notes Were old charts reviewed (outside hosp., previous admission, EMS record, old EKG, old radiological studies, urgent care reports/EKG's, longterm records)? Report findings @ -No old charts were reviewed Differential Diagnosis (chest pain, altered mental status, abdominal pain women, abdominal pain men, vaginal bleeding, musculoskeletal, weakness, fever, dyspnea, syncope, headache, dizziness, GI bleed, back pain, seizure, CVA, palpatations, mental health)? @ -Differential Abdominal Pain Women: Appendicitis, Cholecystitis, diverticulosis, ischemic bowel, pancreatitis, hepatitis, UTI, gastroenteritis, AAA, incarcerated hernia, bowel obstruction, constipation, inflammatory bowel, hepatitis, peptic ulcer disease, splenic infarction, perforated viscus, vulvitis, ovarian torsion, PID, kidney stone, placenta abruption, this is not meant to be an all-inclusive list EKG interpreted by me (3pts min.). @ -None done X-rays interpreted by me (1pt min.). @ -None done CT interpreted by me (1pt min.). @ -None done U/S interpreted by me (1pt. min.). @ -None done What testing was considered but not performed or refused? (CT, X-rays, U/S, labs)? Why? @ -None What meds were considered but not given or refused? Why? @ -None Was smoking cessation discussed for >3mins.? @ -No Were there social determinants of health that impacted care today? How? (Homelessness, low income, unemployed, alcoholism, drug addiction, transportation, low edu. Level, literacy, decrease access to med. care, correction, rehab)? @ -No Was there de-escalation of care discussed even if they declined (Discuss DNR or withdrawal of care, Hospice)? DNR status @ -No What co-morbidities impacted this encounter? (DM, HTN, Smoking, COPD, CAD, C ancer, CVA, ARF, Chemo, Hep., AIDS, mental health diagnosis, sleep apnea, morbid obesity)? @ -None Was patient admitted / discharged? Hospital course, mention meds given and route, prescriptions, significant lab abnormalities, going to OR and other pertinent info. @ -39-year-old female with no significant comorbidities presents emergency department with epigastric abdominal pain, dry heaving and diarrhea. Vital signs upon arrival are within acceptable limits. Patient well-appearing at the bedside. Labs are unremarkable. Patient has nonsurgical abdomen. No leukocytosis. Abdominal labs are negative. Patient reevaluated at bedside at 5 to be in stable medical condition. Patient offered symptomatic medications however did not feel like it was necessary. Patient be discharged. Likely patient's symptoms are secondary to gastroenteritis Did you discuss the management of the patient with other professionals (professionals i.e. , PA, VETERINARY ANATOMIST, lab, RT, psych nurse, licensed master social worker, rate inserter, teacher, customs patrol officer, showcase maker)? Give summary @ -No Was critical care preformed (if so, how long)? @ -No Undiagnosed new problem with uncertain prognosis? @ -No Drug Therapy requiring intensive monitoring for toxicity (Heparin, Nitro, Insulin, Cardizem)? @ -No Were any procedures done? @ -No Diagnosis/symptom? Acute, or Chronic, or Acute on Chronic? Uncomplicated (without systemic symptoms) or Complicated (systemic symptoms)? @ -Gastroenteritis Side effects of treatment? @ -No Exacerbation, Progression, or Severe Exacerbation? @ -No Poses a threat to life or bodily function? How? (Chest pain, USA, NC, pneumonia, PE, COPD, DKA, ARF, appy, cholecystitis, CVA, Diverticulitis, Homicidal, Suicidal, threat to staff... and all critical care pts) @ -No - Lab Data Result diagrams: 09/16/24 08:09 09/16/24 08:09 Lab Results 09/16/24 09/16/24 Range/Units 08:09 08:09 WBC 4.9 (3.8-10.6) k/uL RBC 4.51 (3.80-5.40) m/uL Hgb 14.9 (11.4-16.0) gm/dL Hct 43.3 (34.0-46.0) % MCV 95.9 (80.0-100.0) fL MCH 33.1 (25.0-35.0) pg MCHC 34.5 (31.0-37.0) g/dL RDW 12.1 (11.5-15.5) % Plt Count 202 (150-450) k/uL MPV 9.1 Neutrophils % 79 % Lymphocytes % 15 % Monocytes % 4 % Eosinophils % 1 % Basophils % 0 % Neutrophils # 3.8 (1.3-7.7) k/uL Lymphocytes # 0.7 L (1.0-4.8) k/uL Monocytes # 0.2 (0-1.0) k/uL Eosinophils # 0.0 (0-0.7) k/uL Basophils # 0.0 (0-0.2) k/uL Sodium 136 L (137-145) mmol/L Potassium 4.3 (3.5-5.1) mmol/L Chloride 102 (98-107) mmol/L Carbon Dioxide 24 (22-30) mmol/L Anion Gap 10 mmol/L BUN 17 (7-17) mg/dL Creatinine 0.73 (0.52-1.04) mg/dL Est GFR (CKD-EPI)AfAm >90 (>60 ml/min/1.73 sqM) Est GFR (CKD-EPI)NonAf >90 (>60 ml/min/1.73 sqM) Glucose 119 H (74-99) mg/dL Calcium 10.0 (8.4-10.2) mg/dL Total Bilirubin 1.2 (0.2-1.3) mg/dL AST 22 (14-36) U/L ALT 13 (4-34) U/L Alkaline Phosphatase 47 (38-126) U/L Total Protein 7.1 (6.3-8.2) g/dL Albumin 4.6 (3.5-5.0) g/dL Lipase 55 (23-300) U/L Disposition Clinical Impression: Gastroenteritis Disposition: HOME SELF-CARE Condition: Fair Instructions (If sedation given, give patient instructions): Gastroenteritis (ED) Is patient prescribed a controlled substance at d/c from ED?: No Referrals: Emy Rick MD [Primary Care Provider] - 1-2 days Time of Disposition: 09:07
[2024-09-16] MEDS: SODIUM CHLORIDE 0.9% 1,000 ML IV STA (08:25)
[2024-09-16 08:33] LABS: Basophils % (A) 0 %; Eosinophils % (A) 1 %; HCT 43.3 % (34.0-46.0); HGB 14.9 gm/dL (11.4-16.0); Lymphocytes # (A) 0.7 k/uL (1.0-4.8); Lymphocytes % (A) 15 %; MCH 33.1 pg (25.0-35.0); MCHC 34.5 g/dL (31.0-37.0); MCV 95.9 fL (80.0-100.0); Mean Platelet Volume 9.1; Monocytes # (A) 0.2 k/uL (0-1.0); Monocytes % (A) 4 %; Neutrophils # (A) 3.8 k/uL (1.3-7.7); Neutrophils % (A) 79 %; Platelet Count 202 k/uL (150-450); RBC 4.51 m/uL (3.80-5.40); RDW 12.1 % (11.5-15.5); WBC 4.9 k/uL (3.8-10.6)
[2024-09-16 08:48] LABS: ALT 13 U/L (4-34); AST 22 U/L (14-36); African American GFR (CKD) >90 (>60 ml/min/1.73 sqM); Albumin 4.6 g/dL (3.5-5.0); Alkaline Phosphatase 47 U/L (38-126); Anion Gap 10 mmol/L; Blood Urea Nitrogen 17 mg/dL (7-17); Carbon Dioxide 24 mmol/L (22-30); Chloride 102 mmol/L (98-107); Glucose 119 mg/dL (74-99); Lipase 55 U/L (23-300); Non-African American GFR(CKD) >90 (>60 ml/min/1.73 sqM); Potassium 4.3 mmol/L (3.5-5.1); Sodium 136 mmol/L (137-145); Total Bilirubin 1.2 mg/dL (0.2-1.3); Total Protein 7.1 g/dL (6.3-8.2)
== END 2024-09-16 09:17 | disposition home or self-care (01) ==
LOC: EC 07:46
DX: K52.9 Noninfective gastroenteritis and colitis, unspecified (principal); J45.909 Unspecified asthma, uncomplicated
CPT/HCPCS: 36415; 80053; 83690; 85025; 96360; 99284

== ENCOUNTER 2024-11-14 11:15 | Day surgery (SDC) | payer BC ==
[2024-11-09 14:17] VITALS: BMI 22.3
[2024-11-14] MEDS ORDERED: LIDOCAINE 1% (10MG/ML) FOR IV START INTRADERMA PRN (12:34)
[2024-11-14] MEDS: LACTATED RINGERS 1,000 ML IV SCH (12:42)
[2024-11-14 12:48] VITALS: RESP 16; TEMP 97.4
[2024-11-14] MEDS: IV FLUID CONTINUATION 1,000 ML IV ONE (12:48)
[2024-11-14] MEDS ORDERED: PROPOFOL 10 MG/ML 20 ML VIAL IV ONE (13:02)
[2024-11-14] MEDS ORDERED: LIDOCAINE 2% (PF) 20 MG/ML 5 ML VIAL ONE (13:02)
--- NOTE | 2024-11-14 13:10 | P.PCN ---
Date of Procedure: 11/14/24 Procedure(s) Performed: BRIEF HISTORY: Patient is a 39-year-old, pleasant, white female scheduled for an upper endoscopy as a part of evaluation of chronic epigastric pain for the last 2 months duration. She recently started on Pepcid 20 mg daily and symptoms are gradually improving. PROCEDURE PERFORMED: Esophagogastroduodenoscopy with biopsy. PREOPERATIVE DIAGNOSIS: Chronic epigastric pain. IV sedation per anesthesia. PROCEDURE: After informed consent was obtained, the patient was brought into the endoscopy unit. IV sedation was administered by Anesthesia under continuous monitoring. Initially the Olympus GIF-140 video endoscope was inserted into the mouth. Esophagus intubated without any difficulty. It was gradually advanced into the stomach and duodenum and carefully examined. The bulb and the second part of the duodenum appeared normal. The scope at this time was withdrawn to the stomach, adequately insufflated with air, and upon careful examination, mucosa of the antrum, and mild gastritis and biopsies were done from this area. Mucosa of the body, cardia and the fundus appeared normal. The scope was then withdrawn into the esophagus. Small hiatal hernia noted. The GE junction was located at 39 cm from the incisors. There was 1 superficial erosion in the distal esophagus consistent with LA grade B reflux esophagitis. Rest of the esophagus appeared normal and the patient tolerated the procedure well. IMPRESSION: 1. 1 superficial erosion in the distal esophagus consistent with LA grade B reflux esophagitis. 2. Small hiatal hernia 3. Mild antral gastritis. RECOMMENDATIONS: The findings of this examination were discussed with the patient as well as her family. She was advised to follow-up with the biopsy results. Advised to increase the Pepcid to 20 mg twice daily and follow antireflux measures..
[2024-11-14 13:34] VITALS: BP 125/89; PULSE 81
== END 2024-11-14 13:47 | disposition home or self-care (01) ==
LOC: ORWHC2ENDO 11:15
PROVIDERS: ATTEND Internal Medicine Gastroenterology
DX: K21.00 Gastro-esophageal reflux disease with esophagitis, without bleeding (principal); K29.50 Unspecified chronic gastritis without bleeding; K44.9 Diaphragmatic hernia without obstruction or gangrene
CPT/HCPCS: 81025; 88305; 43239; J2704; J2003

== ENCOUNTER → 2024-12-04 | Outpatient (CLI) | payer BC | LOC: CPPFTMAIN 09:12 | PROVIDERS: ATTEND Internal Medicine Critical Care Medicine | DX: J45.50 Severe persistent asthma, uncomplicated (principal) | CPT/HCPCS: 94060; 94726; 94729 ==

== ENCOUNTER → 2024-12-07 | Outpatient (CLI) | payer BC ==
--- NOTE | 2024-12-07 09:46 | MM ---
Reason for Exam: Screening (asymptomatic). Last mammogram was performed 1 year(s) and 9 month(s) ago. Patient History: Menarche at age 13. First Full-Term at age 31. Late child-bearing (after 30). Premenopausal. Patient has history of breast feeding. Risk Values: Susy 5 year model risk: 0.7%. NCI Lifetime model risk: 12.5%. Prior Study Comparison: 03/08/2023 Bilateral MG 3D screening mammo w/cad, [facility]. Tissue Density: The breasts are heterogeneously dense, which may obscure small masses. Findings: Analyzed By CAD. There is no suspicious group of microcalcifications or new suspicious mass in either breast. Overall Assessment: Negative, BI-RAD 1 Management: Screening Mammogram of both breasts in 1 year. . Patient should continue monthly self-breast exams. A clinical breast exam by your physician is recommended on an annual basis. This exam should not preclude additional follow-up of suspicious palpable abnormalities. Note on Susy scores and lifetime risk: 1. A Susy score greater than 3% is considered moderate risk. If this is the case, consider specialist referral to assess eligibility for a risk reducing agent. 2. If overall lifetime risk for the development of breast cancer is 20% or higher, the patient may qualify for future screening with alternating mammogram and breast MRI. [facility], , 12/07/2024 9:43 AM. Electronically signed and approved by: Oleg Negron M.D.
== END | disposition home or self-care (01) ==
LOC: RADMAMWWP 09:08
PROVIDERS: ATTEND Family Medicine
DX: Z12.31 Encounter for screening mammogram for malignant neoplasm of breast (principal); R92.333 Mammographic heterogeneous density, bilateral breasts
CPT/HCPCS: 77063; 77067